=== PATIENT | female | born 1940 | race Caucasian/White ===

== ENCOUNTER 2023-12-27 17:45 | Inpatient (IN) ==
[2023-12-27 18:21] LABS: Basophils # (auto) 0.03 K/uL (0.00-0.20); Basophils % (auto) 0.4 %; Eosinophils # (auto) 0.22 K/uL (0.00-0.50); Eosinophils % (auto) 2.9 %; Hematocrit (blood only) 47.9 % (37.0-47.0); Immature Granulocytes # (auto) 0.01 K/uL (0.01-0.20); Immature Granulocytes % (auto) 0.1 %; Lymphocytes # (auto) 3.05 K/uL (1.20-3.40); Lymphocytes % (auto) 39.8 %; Mean Corpuscular Hemoglobin 31.4 pg (25.0-34.0); Mean Corpuscular Hgb Conc 33.4 g/dL (32.0-36.0); Mean Corpuscular Volume 93.9 fL (80.0-100.0); Mean Platelet Volume 10.1 fL (9.4-12.4); Monocytes # (auto) 0.62 K/uL (0.11-0.59); Monocytes % (auto) 8.1 %; Neutrophils # (auto) 3.74 K/uL (1.40-6.50); Neutrophils % (auto) 48.7 %; Platelet Count 172 K/uL (130-400); RDW Coefficient of Variation 12.7 % (11.5-14.5); RDW Standard Deviation 43.8 fL (36.4-46.3); White Blood Count 7.67 K/ul (4.8-10.8)
[2023-12-27 18:46] LABS: Albumin Globulin Ratio 1.6 (0.9-2); Albumin Level 4.1 gm/dl (3.4-5.0); Bilirubin,Total 0.4 mg/dl (0.2-1.0); Calcium 9.2 mg/dl (8.6-10.3); Est GFR (African American) 50.6 ml/min; Est GFR (Non-African American) 43.7 ml/min; Globulin 2.6 gm/dl (2.5-4.0); Potassium 4.6 mmol/L (3.5-5.1); Total Protein 6.7 gm/dl (6.0-8.3)
[2023-12-27 18:49] LABS: Partial Thromboplastin Ratio 0.7; Partial Thromboplastin Time 21 Seconds (21-31); Prothrombin Time 10.7 Seconds (9.0-12.0)
[2023-12-27 18:51] LABS: Troponin I High Sensitivity 8.6 pg/ml (0-14)
--- NOTE | 2023-12-27 19:11 | XRay Report ---
SINGLE VIEW CHEST CLINICAL HISTORY: Atypical chest pain. FINDINGS: A PA chest radiograph is obtained. No prior studies are available for comparison at the [facility] of dictation. The cardiomediastinal silhouette is unremarkable noting atherosclerotic calcification of the thoracic aorta. Advise projection of left atrium. There is mild bibasilar scarring/atelectasi s. The lungs and pleural spaces are otherwise clear. No pneumothorax is seen. The skeletal structures are osteopenic. The bony thorax is grossly intact. Degenerative change and scoliosis is noted in the spine. IMPRESSION: No active disease in the chest. ACT 112: Negative or not required by law. Electronically signed by: Luis Velez M.D. 12/27/2023 7:09 PM
--- NOTE | 2023-12-27 19:17 | Emergency Department Note ---
Impression & Plan Intermittent lightheadedness, Heart palpitations ED Provider Note NAME: CHRISTY DE LA CRUZ AGE: 83 SEX: F : 1940 ARRIVES VIA: Walk-In INFORMANT: Patient, son ED PROVIDER(S): Zach Akhtar MD CHIEF COMPLAINT: Dizziness MEDICAL DECISION MAKING: Patient presented due to concern for dizziness chest crampiness IV was established and blood work was obtained. Patient is a normal white count hemoglobin and platelet count kidney function with prerenal azotemia LFTs are unremarkable with negative troponin. Chest x-ray does not show evidence of pneumonia or pneumothorax CT of the head was ordered. Patient's CT head negative but does show senescent changes. Given the concern for possible arrhythmia and the patient's intermittent symptoms the patient may benefit from telemetry cardiology evaluation and monitoring. I did speak the on-call hospital service Dr. Whitmore and the patient was admitted to medicine service. Discussion w/ other healthcare providers: Dr. Whitmore inpatient medicine service Prior /Outside records reviewed: None Differential diagnosis: Benign positional vertigo, dehydration, hypovolemia, anemia, infection, hypoglycemia, electrolyte abnormalities, arrhythmia, tox among others were considered. Diagnostics, as interpreted by me: ECG: Normal sinus rhythm, rate of 63, normal intervals, normal axis no ST elevations. Cardiac monitoring: An order was placed for continuous cardiac monitoring. The monitor shows a rate of 65 with sinus rhythm. Patient was placed on pulse oximetry Medical decision rules: None Imaging studies: I informally interpreted the patient's chest x-ray does not show obvious pneumonia or pneumothorax with formal report to follow. HPI: Patient presents with son at bedside due to concern for dizziness lightheadedness possible pacemaker placement. Patient reports that she had been seen at her primary cardiology office yesterday and there was concern that she might be having an irregular heartbeat as there were normal waves and then abnormal waves that the patient describes. [facility] she was subsequently placed in a hallway bed where she waited for 20 hours after waiting in the waiting room for about 5 hours and thus left presenting here for further evaluation and treatment. Patient states that she has had intermittent symptoms sometimes chest crampiness and associated listing to the left side where she is lightheaded dizzy and feels as though she is spinning. Patient did have similar symptoms about a year ago she was diagnosed with a slight stroke did have a Watchman procedure that was performed since then. This has been checked 2 separate times reportedly is in good condition per the son. Patient denies any actual syncope or falls. Patient denies any alcohol tobacco or drug use. PAST MEDICAL HISTORY: See Below PAST SURGICAL HISTORY: See Below SOCIAL HISTORY: See Below HOME MEDICATIONS: See Below ALLERGIES: See Below VITALS: See Below PHYSICAL EXAMINATION: GENERAL: NAD, non-toxic. Wearing glasses. EYE EXAM: Normal conjunctiva. PERRL, no anisocoria and EOM's grossly intact w/o pain. OROPHARYNX: Moist mucus membranes, grossly normal dentition. NECK: Trachea midline, no stridor. LUNGS: Clear to auscultation. Normal chest wall mechanics. HEART: NSR, systolic ejection murmur noted. ABDOMEN: Abdomen soft, non-tender, no masses, no rebound or guarding. BACK: No CVA TTP. SKIN: No rashes and no bruising. UPPER EXTREMITIES: Upper extremities are grossly normal. LOWER EXTREMITIES: Grossly normal, no edema. NEURO EXAM: A&O x3, cranial nerves II-XII grossly intact, normal speech, moves all 4 extremities. Past Med/Surg History Medical History Presence of Watchman left atrial appendage closure device DM2 (diabetes mellitus, type 2) CVA (cerebral vascular accident) Social History Smoking Status: Never smoker Hx Alcohol Use: Yes (occationally) Alcohol type: other Hx Substance Use: No Preferred Language: Slovenian Seam Steamer Required: No Beliefs That Will Affect Care: None Current Living Situation: Alone Feels Safe at Home: Yes Allergies Allergies Allergy/AdvReac Type Severity Reaction Status Date / Time crab Allergy Rash Verified 12/27/23 20:39 meperidine [From Demerol] Allergy Rash Verified 12/27/23 20:39 Penicillins Allergy Rash Verified 12/27/23 20:39 Home Meds Home Medications Medication Instructions Recorded Confirmed acetaminophen 500 mg tablet 1,000 mg PO DAILY 12/27/23 12/27/23 (Tylenol Extra Strength) aspirin 81 mg tablet,delayed 81 mg PO DAILY 12/27/23 12/27/23 release atorvastatin 40 mg tablet 40 mg PO DAILY 12/27/23 12/27/23 cholecalciferol (vitamin D3) 25 0 mcg PO DAILY 12/27/23 12/27/23 mcg (1,000 unit) tablet (Vitamin D3) donepezil 10 mg tablet 10 mg PO HS 12/27/23 12/27/23 empagliflozin 10 mg tablet 10 mg PO QAM 12/27/23 12/27/23 (Jardiance) gabapentin 100 mg capsule 200 mg PO QAM 12/27/23 12/27/23 gabapentin 100 mg capsule 300 mg PO HS 12/27/23 12/27/23 glimepiride 2 mg tablet 2 mg PO DAILY 12/27/23 12/27/23 ipratropium bromide 21 mcg (0.03 2 spray intranasal Q12 12/27/23 12/27/23 %) nasal spray lisinopril 2.5 mg tablet 2.5 mg PO BID 12/27/23 12/27/23 memantine 10 mg tablet 10 mg PO BID 12/27/23 12/27/23 mirabegron 50 mg tablet,extended 50 mg PO DAILY 12/27/23 12/27/23 release 24 hr (Myrbetriq) sredncrz-aka-koimr acid 0.4 1 tab PO DAILY 12/27/23 12/27/23 mg-lycopene 300 mcg-lutein 250 mcg tablet (Centrum Silver) omega-3 fatty acids 1,000 mg 1,000 mg PO BID 12/27/23 12/27/23 capsule solifenacin 5 mg tablet 5 mg PO DAILY 12/27/23 12/27/23 tirzepatide 5 mg/0.5 mL 5 mg subcut .Q7DAYS 12/27/23 12/27/23 subcutaneous pen injector (Kalunsayda) trazodone 50 mg tablet 50 mg PO HS 12/27/23 12/27/23 Results & Data (ED) Vital Signs Vital Signs - 24 hr 12/27/23 17:50 12/27/23 19:15 12/27/23 19:15 Temperature 36.7 C Temperature Source Temporal Artery Scan Pulse Rate 61 66 Pulse Rate from SpO2 Sensor 112 H Respiratory Rate 18 34 H Blood Pressure 191/83 H 206/86 H Blood Pressure Mean 119 140 Pulse Oximetry 94 94 Oxygen Delivery Method Room Air Room Air Oxygen Flow Rate Sepsis Recent Fever Within 48 Hours No Sepsis New/Unexplained Change in Mental Status No Sepsis Action Taken by Nursing No Action Required 12/27/23 19:21 12/27/23 19:21 Temperature Temperature Source Pulse Rate Pulse Rate from SpO2 Sensor Respiratory Rate Blood Pressure Blood Pressure Mean Pulse Oximetry 94 94 Oxygen Delivery Method Room Air Room Air Oxygen Flow Rate 0 Sepsis Recent Fever Within 48 Hours Sepsis New/Unexplained Change in Mental Status Sepsis Action Taken by Detention Medications Current Medication List: was personally reviewed by me Laboratory Data Attestation: I reviewed the patient's lab results. 12/28/23 05:45 12/28/23 05:45 Lab Results 12/27/23 12/27/23 Range/Units 18:08 20:24 WBC 7.67 (4.8-10.8) K/ul RBC 5.10 (4.20-5.40) M/uL Hgb 16.0 (12.0-16.0) g/dl Hct 47.9 H (37.0-47.0) % MCV 93.9 (80.0-100.0) fL MCH 31.4 (25.0-34.0) pg MCHC 33.4 (32.0-36.0) g/dL RDW Std Deviation 43.8 (36.4-46.3) fL RDW Coeff of [place] 12.7 (11.5-14.5) % Plt Count 172 (130-400) K/uL MPV 10.1 (9.4-12.4) fL Immature Gran % (Auto) 0.1 % Neut % (Auto) 48.7 % Lymph % (Auto) 39.8 % [place] % (Auto) 8.1 % Eos % (Auto) 2.9 % Baso % (Auto) 0.4 % Neut # (Auto) 3.74 (1.40-6.50) K/uL Lymph # (Auto) 3.05 (1.20-3.40) K/uL [place] # (Auto) 0.62 H (0.11-0.59) K/uL Eos # (Auto) 0.22 (0.00-0.50) K/uL Baso # (Auto) 0.03 (0.00-0.20) K/uL Immature Gran # (Auto) 0.01 (0.01-0.20) K/uL PT 10.7 (9.0-12.0) Seconds INR 1.0 (0.9-1.1) APTT 21 (21-31) Seconds PTT Ratio 0.7 Sodium 140 (136-145) mmol/L Potassium 4.6 (3.5-5.1) mmol/L Chloride 107 (98-107) mmol/L Carbon Dioxide 27 (21-32) mmol/L Anion Gap 6 (3-11) BUN 31 H (6-23) mg/dl Creatinine 1.15 (0.6-1.2) mg/dl Est Cr Clr Drug Dosing 28.0 ml/min Est GFR ( Amer) 50.6 ml/min Est GFR (Non-Af Amer) 43.7 ml/min BUN/Creatinine Ratio 27.0 H (10-20) Glucose 119 H (70-99(Fasting)) mg/dl Calcium 9.2 (8.6-10.3) mg/dl Magnesium 2.0 (1.7-2.4) mg/dl Total Bilirubin 0.4 (0.2-1.0) mg/dl AST 21 (13-39) U/L ALT 18 (7-52) U/L Alkaline Phosphatase 56 (34-104) U/L Troponin I High Sens 8.6 (0-14) pg/ml Total Protein 6.7 (6.0-8.3) gm/dl Albumin 4.1 (3.4-5.0) gm/dl Globulin 2.6 (2.5-4.0) gm/dl Albumin/Globulin Ratio 1.6 (0.9-2) SARS-CoV-2, RNA, NAAT NEGATIVE (NEGATIVE) Administered Medications Acetaminophen (Acetaminophen 500 Mg Tab) 1,000 mg PO DAILY AVEL Stop: 01/27/24 08:59 Last Admin: 12/28/23 12:23 Dose: 1,000 mg Documented By: ALIREZA Aspirin (Aspirin 81 Mg Ectab) 81 mg PO DAILY AVEL Stop: 01/27/24 08:59 Last Admin: 12/28/23 12:23 Dose: 81 mg Documented By: ALIREZA Atorvastatin Calcium (Atorvastatin 40 Mg Tab) 40 mg PO DAILY AVEL Stop: 01/27/24 08:59 Last Admin: 12/28/23 12:24 Dose: 40 mg Documented By: ALIREZA Gabapentin (Gabapentin 100 Mg Cap) 100 mg PO BID AVEL Stop: 01/27/24 08:59 Last Admin: 12/28/23 20:42 Dose: 100 mg Documented By: Admin: 12/28/23 12:24 Dose: 100 mg Documented By: ALIREZA Heparin Sodium (Porcine) (Heparin Sod 5,000 Unit/0.5 Ml Vial) 5,000 units SQ Q12 AVEL Stop: 01/27/24 20:59 Last Admin: 12/28/23 20:42 Dose: 5,000 units Documented By: MIKE Insulin Aspart (Insulin Aspart Per Unit Charge) 0 units SC Q6 AVEL Stop: 01/27/24 05:59 Last Admin: 12/28/23 16:42 Dose: 2 units Documented By: ALIREZA Co-signed By: JENNIFER Admin: 12/28/23 12:24 Dose: Not Given Documented By: Admin: 12/28/23 05:56 Dose: Not Given Documented By: FELY Lisinopril (Lisinopril 2.5 Mg Tab) 2.5 mg PO BID AVEL Stop: 01/27/24 08:59 Last Admin: 12/28/23 20:42 Dose: 2.5 mg Documented By: Admin: 12/28/23 12:24 Dose: 2.5 mg Documented By: ALIREZA Trazodone HCl (Trazodone Hcl 50 Mg Tab) 25 mg PO HS AVEL Stop: 01/27/24 20:59 Last Admin: 12/28/23 20:42 Dose: 25 mg Documented By: MIKE Vibegron (Vibegron 75 Mg Tab) 75 mg PO DAILY AVEL Stop: 01/27/24 08:59 Last Admin: 12/28/23 12:24 Dose: 75 mg Documented By: ALIREZA Discontinued Medications Lactated Ringer's (Lr) 1,000 mls @ 125 mls/hr IV .Q8H AVEL Stop: 12/28/23 15:29 Last Infusion: 12/28/23 17:18 Dose: Infused Documented By: Admin: 12/28/23 08:52 Dose: 125 mls/hr Documented By: ALIREZA Imaging Data Radiologist's Impression: Chest X-Ray 12/27/23 17:59 SINGLE VIEW CHEST CLINICAL HISTORY: Atypical chest pain. FINDINGS: A PA chest radiograph is obtained. No prior studies are available for comparison at the time of dictation. The cardiomediastinal silhouette is unremarkable noting atherosclerotic calcification of the thoracic aorta. Advise projection of left atrium. There is mild bibasilar scarring/atelectasis. The lungs and pleural spaces are otherwise clear. No pneumothorax is seen. The skeletal structures are osteopenic. The bony thorax is grossly intact. Degenerative change and scoliosis is noted in the spine. IMPRESSION: No active disease in the chest. ACT 112: Negative or not required by law. Electronically signed by: Luis Velez M.D. 12/27/2023 7:09 PM Chest X-Ray 12/27/23 17:59 SINGLE VIEW CHEST CLINICAL HISTORY: Atypical chest pain. FINDINGS: A PA chest radiograph is obtained. No prior studies are available for comparison at the time of dictation. The cardiomediastinal silhouette is unremarkable noting atherosclerotic calcification of the thoracic aorta. Advise projection of left atrium. There is mild bibasilar scarring/atelectasis. The lungs and pleural spaces are otherwise clear. No pneumothorax is seen. The skeletal structures are osteopenic. The bony thorax is grossly intact. Degenerative change and scoliosis is noted in the spine. IMPRESSION: No active disease in the chest. ACT 112: Negative or not required by law. Electronically signed by: Luis Velez M.D. 12/27/2023 7:[address] 12/27/23 19:57 Exam(s): CT HEAD Without Contrast EXAM: CT Head Without Intravenous Contrast CLINICAL HISTORY: Reason for exam: dizziness. TECHNIQUE: Axial computed tomography images of the head/brain without intravenous contrast. CTDI is 38.55 mGy and DLP is 546.36 mGy-cm. Automated exposure control was utilized for the study. A dose lowering technique was utilized adhering to the principles of ALARA. COMPARISON: No relevant prior studies available. FINDINGS: Brain: Mild cerebral atrophy and patchy periventricular white matter low density consistent with chronic small vessel disease and/or senescent changes. No acute large vessel infarct or intracranial hemorrhage is seen. Ventricles: Mildly dilated. No mass or hemorrhage. Bones/joints: Unremarkable. No acute fracture. Soft tissues: Unremarkable. Sinuses: Unremarkable as visualized. No acute sinusitis. Mastoid air cells: Unremarkable as visualized. No mastoid effusion. IMPRESSION: Mild cerebral atrophy and patchy periventricular white matter low density consistent with chronic small vessel disease and/or senescent changes. No acute large vessel infarct or intracranial hemorrhage is seen. Electronically signed by: Timi Goodwin MD 12/27/23 20:55 PM Discharge Plan Visit Data Chief Complaint: Cardiac Assessment Stated Complaint: CARDIAC PROBLEMS - MURMUR, ARRYTHMIA ED Provider: Zach Akhtar Discharge Problem: Intermittent lightheadedness, Heart palpitations Patient Disposition: Admitted As Inpatient Discharge Instructions Interventions: ED Discharge Assessment Last Done: 12/27/23 23:33
--- NOTE | 2023-12-27 20:55 | CT Scan Report ---
Exam(s): CT HEAD Without Contrast EXAM: CT Head Without Intravenous Contrast CLINICAL HISTORY: Reason for exam: dizziness. TECHNIQUE: Axial computed tomography images of the head/brain without intravenous contrast. CTDI is 38.55 mGy and DLP is 546.36 mGy-cm. Automated exposure control was utilized for the study. A dose lowering technique was utilized adhering to the principles of ALARA. COMPARISON: No relevant prior studies available. FINDINGS: Brain: Mild cerebral atrophy and patchy periventricular white matter low density consistent with chronic small vessel disease and/or senescent changes. No acute large vessel infarct or intracranial hemorrhage is seen. Ventricles: Mildly dilated. No mass or hemorrhage. Bones/joints: Unremarkable. No acute fracture. Soft tissues: Unremarkable. Sinuses: Unremarkable as visualized. No acute sinusitis. Mastoid air cells: Unremarkable as visualized. No mastoid effusion. IMPRESSION: Mild cerebral atrophy and patchy periventricular white matter low density consistent with chronic small vessel disease and/or senescent changes. No acute large vessel infarct or intracranial hemorrhage is seen. Electronically signed by: Timi Goodwin MD 12/27/23 20:55 PM
--- NOTE | 2023-12-27 21:59 | History & Physical Report ---
Date of Service December 27, 2023 Assessment & Plan (1) Intermittent lightheadedness: Plan: - Per patient history likely etiology cardiac; although unclear what was seen on her event monitor that prompted ED evaluation - No acute abnormalities on head CT and neuro exam is non-focal - Records request for [facility] cardiology - will monitor of telemetry - TTE ordered - consult cardiology (2) Heart palpitations: Plan: Plan as per above (3) CVA (cerebral vascular accident): Plan: - Reported history of CVA 1 year ago, s/p watchman procedure - Head CT without acute signs of stroke and neuro exam non-focal - Continue statin; lipid panel with am labs - Hold ASP pending cardiology evaluation (4) DM2 (diabetes mellitus, type 2): Plan: - Will hold home meds - well controlled per pt/son - Repeat hemoglobin a1c with morning labs - plan for SSI ACHS (5) Insomnia: Plan: - continue trazodone prn (6) Overactive bladder: Plan: - continue mirabegron, solifenacin Plan Continue remaining home meds- gabapentin, donepezil, lisinopril, memantine. Records request for cardiology/PCP records. Diet: NPO pending cardiology evaluation VTE Prophylaxis: SCD, hold chemical pending cardiology evaluation Code: Full per both pt and son History of Present Illness Primary Care Provider: Bart Daniels 83 year old female presenting per cardiology recommendations with concern for lightheadedness/dizziness. History obtained from both patient and from son, Ovi, over the phone. Was seen at certified athletic trainer office on Friday- [facility] Dr. Frank. Reports that they saw PA in office on Friday. They recommend that she come go to ED for evaluation and felt she may need a pacemaker. Per son she had a heart monitor for about 24 hours, unclear as to what data from that showed. She has been having interment symptoms for over a year. Occur every 1-2 weeks. No new or acutely worsening symptoms in the past week. Periods of lightheadedness/dizziness, confusion, balance is effected, chest "cramping" and palpitations. A year ago was treated for a CVA and after that had a watchman procedure. Denies any current symptoms and she states that she has not been symptomatic at all today. Denies chest pain, dyspnea, lightheadedness, dizziness, palpitations. ED work-up Significant for: CXR without acute pathology, Head CT- Mild cerebral atrophy and patchy periventricular white matter low density consistent with chronic small vessel disease and/or senescent changes. No acute large vessel infarct or intracranial hemorrhage is seen. EKG- NSR with anterolateral infarct undetermined age, trop= 8.3 Allergies Allergy/AdvReac Type Severity Reaction Status Date / Time crab Allergy Rash Verified 12/27/23 20:39 meperidine [From Demerol] Allergy Rash Verified 12/27/23 20:39 Penicillins Allergy Rash Verified 12/27/23 20:39 Home Medications Medication Instructions Recorded Confirmed Type acetaminophen 500 mg tablet 1,000 mg PO DAILY 12/27/23 12/27/23 History (Tylenol Extra Strength) aspirin 81 mg tablet,delayed 81 mg PO DAILY 12/27/23 12/27/23 History release atorvastatin 40 mg tablet 40 mg PO DAILY 12/27/23 12/27/23 History cholecalciferol (vitamin D3) 25 0 mcg PO DAILY 12/27/23 12/27/23 History mcg (1,000 unit) tablet (Vitamin D3) donepezil 10 mg tablet 10 mg PO HS 12/27/23 12/27/23 History empagliflozin 10 mg tablet 10 mg PO QAM 12/27/23 12/27/23 History (Jardiance) gabapentin 100 mg capsule 200 mg PO QAM 12/27/23 12/27/23 History gabapentin 100 mg capsule 300 mg PO HS 12/27/23 12/27/23 History glimepiride 2 mg tablet 2 mg PO DAILY 12/27/23 12/27/23 History ipratropium bromide 21 mcg (0.03 2 spray intranasal Q12 12/27/23 12/27/23 History %) nasal spray lisinopril 2.5 mg tablet 2.5 mg PO BID 12/27/23 12/27/23 History memantine 10 mg tablet 10 mg PO BID 12/27/23 12/27/23 History mirabegron 50 mg tablet,extended 50 mg PO DAILY 12/27/23 12/27/23 History release 24 hr (Myrbetriq) evpsiuek-ozv-hbjjv acid 0.4 1 tab PO DAILY 12/27/23 12/27/23 History mg-lycopene 300 mcg-lutein 250 mcg tablet (Centrum Silver) omega-3 fatty acids 1,000 mg 1,000 mg PO BID 12/27/23 12/27/23 History capsule solifenacin 5 mg tablet 5 mg PO DAILY 12/27/23 12/27/23 History tirzepatide 5 mg/0.5 mL 5 mg subcut .Q7DAYS 12/27/23 12/27/23 History subcutaneous pen injector (Stephanie) trazodone 50 mg tablet 50 mg PO HS 12/27/23 12/27/23 History Past Med/Surg History Medical History Presence of Watchman left atrial appendage closure device DM2 (diabetes mellitus, type 2) CVA (cerebral vascular accident) Social History Smoking Status: Never smoker Hx Alcohol Use: Yes (occationally) Alcohol type: other Hx Substance Use: No Preferred Language: Greenlandic Tariff Clerk Required: No Beliefs That Will Affect Care: None Current Living Situation: Alone Feels Safe at Home: Yes Review of Systems Review of Systems: As per above Physical Exam Physical Exam: Constitutional: well-appearing, no acute distress HEENT: NCAT, no conjunctival injection CV: regular rhythm, no murmur appreciated, extremities well-perfused, no LE edema Resp: CTABL, no wheezes/rales/rhonchi appreciated, no increased work of breathing GI: soft, nondistended, nontender, BS normoactive MSK: no gross deformities appreciated Skin: warm, dry, no rash appreciated Neuro: alert, oriented, no focal neurologic deficit appreciated. CN II-XII intact, strength 5/5 UE/LE B/L Results & Data Results & Data Vital Signs (Past 12 Hours) Vital Signs Temp Pulse Resp BP Pulse Ox O2 Del Method O2 Flow Rate 12/27/23 21:07 183/96 H 12/27/23 21:07 68 22 97 Room Air 12/27/23 21:00 70 20 95 Room Air 12/27/23 20:35 64 22 95 12/27/23 20:00 65 20 92 12/27/23 19:30 62 27 H 12/27/23 19:21 94 Room Air 12/27/23 19:21 94 Room Air 0 12/27/23 19:15 66 34 H 94 Room Air 12/27/23 19:15 206/86 H 12/27/23 19:14 61 12/27/23 17:50 36.7 C 61 18 191/83 H 94 Room Air Supervising Physician Co-Signing Physician Notes Attending addendum: I have physically seen this patient, have supervised the medical residents activities, and agree with the H&P unless as otherwise noted. Assessment and Plan: Intermittent lightheadedness- The patient will be admitted to telemetry for serial cardiac enzymes, serial EKG's, cardiac rhythm monitoring and a 2-D echocardiogram with Dopplers. CT head negative Differential including but not limited to: Tachyarrhythmia, bradycardia arrhythmia, hypoglycemia, medication side effect, progression of General debilitation Heart palpitations- History of Watchman left atrial appendage closure device Follow on telemetry for possible arrhythmias because of lightheadedness symptoms Continue aspirin, lisinopril Consult cardiology Diabetes mellitus- Hold Mounjaro, glimepiride, Jardiance Placed on Accu-Cheks with NovoLog SSI Resident Activity Tracking Resident Involvement: Resident Care Provided Care Provided: Adult Hospital Medicine
[2023-12-28] MEDS ORDERED: DEXTROSE 50% 50 ML SYRINGE IV PRN (00:26)
[2023-12-28] MEDS ORDERED: GLUCOSE 10 TAB/TUBE PO PRN (00:26)
[2023-12-28] MEDS ORDERED: GLUCOSE 40% GEL 15 GM TUBE PO PRN (00:26)
[2023-12-28] MEDS ORDERED: CARBOHYDRATES FOR HYPOGLYCEMIA PO PRN (00:26)
[2023-12-28] MEDS: INSULIN ASPART PER UNIT CHARGE SC SCH (05:56)
[2023-12-28 06:21] LABS: Hematocrit (blood only) 50.9 % (37.0-47.0); Hemoglobin 16.3 g/dl (12.0-16.0); Mean Corpuscular Hemoglobin 30.8 pg (25.0-34.0); Mean Platelet Volume 10.6 fL (9.4-12.4); Platelet Count 147 K/uL (130-400); RDW Coefficient of Variation 12.9 % (11.5-14.5); RDW Standard Deviation 46.1 fL (36.4-46.3); White Blood Count 7.98 K/ul (4.8-10.8)
[2023-12-28 06:46] LABS: Albumin Globulin Ratio 1.7 (0.9-2); Albumin Level 3.9 gm/dl (3.4-5.0); BUN Creatinine Ratio 29.2 (10-20); Bilirubin,Total 0.5 mg/dl (0.2-1.0); Calcium 9.2 mg/dl (8.6-10.3); Chol HDL Ratio 2.1 (0-5); Creatinine Clr Calc Pharmacy 36.2 ml/min; Est GFR (Non-African American) 59.5 ml/min; Globulin 2.3 gm/dl (2.5-4.0); Phosphorus 3.1 mg/dl (2.5-4.9); Total Protein 6.2 gm/dl (6.0-8.3)
--- NOTE | 2023-12-28 07:30 | Hospitalist Progress Note ---
Date of Service December 28, 2023 Assessment & Plan (1) Intermittent lightheadedness: Plan: 83 y/o with history of CVA and subsequently Watchman procedure, seen in cardiology clinic [facility], [facility] friday by PA (magazine publisher Dr. Frank), referred to ED and was in ED in [place] reportedly 20 hours, left and came to ED here - "Per patient history likely etiology cardiac; although unclear what was seen on her event monitor that prompted ED evaluation" - I personally reviewed CXR film, I can see her Watchman but I do NOT see an event recorder, will confirm with patient on exam. If present we should be able to interrogate it - No acute abnormalities on head CT and neuro exam is non-focal - Records requested from [facility] cardiology - won't arrive today - no events on telemetry overnight, EKG NSR anterolateral Qs - has multiple medications that could cause lightheadedness also appears volume depleted based on labs (no fluids given in ED / overnight?) - hold aricept, namenda - reduce gabapentin to 100 mg bid. Current home dose too high based on age, renal function - hold/reduce trazodone dose - can cause orthostasis, hypotension (taking 50 mg not 100) - hold oxybutynin - check orthostatic VS, PT/OT - IV LR 1L. Has elevated H/H persists overnight - recheck after IVF in am, may warrant further evaluation for polycythemia - "GoLo" supplement label contains mag, zinc, chromiun, rhodiola, inositol, berberine, jayy, banaba, salaretin, apple. Not supposed to contain stimulants. - TTE ordered - admitting team consulted cardiology, discussed with Dr. Armstrong, will be NPO after MN in case she needs pacemaker, attempting to get records/info from [facility], [facility] (2) Heart palpitations: Plan: Plan as per above (3) CVA (cerebral vascular accident): Plan: - Reported history of CVA 1 year ago, s/p watchman procedure - Head CT without acute signs of stroke and neuro exam non-focal - Continue statin; lipid panel with am labs - Resume aspirin (4) DM2 (diabetes mellitus, type 2): Plan: - Will hold home meds - well controlled per pt/son - Repeat hemoglobin a1c with morning labs - plan for SSI ACHS (5) Insomnia: Plan: -reduce trazodone dose (6) Overactive bladder: Plan: Takes these for urge incontinence. - hold mirabegron, solifenacin Plan Dementia or mild cognitive impairment - on aricept, namenda, held because of potential side effects, see above CKD-3? - no baseline labs available -AM BMP, IVF today Diet: cardiac VTE Prophylaxis: SQ heparin Code: Full per both pt and son Updated her two sons at bedside 12/27 Admission and Anticipated Discharge Date Admission Date: December 27, 2023 Subjective Feels better than yesterday generally, finally napped about 4h, vague historian but has been having recurrent episodes of lightheadedness and feeling uncoordinated for months or a year not always with standing. can't recall her meds or if any recent changes. Has lost weight but on jardiance and mounjaro. Has been taking "golo" supplement recently No chest pain or dyspnea. Currently eating lunch Son states no residual deficits from previous stroke Physical Exam 2 Physical Exam: PHYSICAL EXAMINATION Last 24h vital signs reviewed, see documentation in flowsheet General: comfortable appearing, no distress, sitting up in bed HEENT: Normocephalic, atraumatic, pupils round and equal, sclerae anicteric, no conjunctival injection, moist mucus membranes Lungs: Normal respiratory effort. Clear to auscultation bilaterally. No RRW Heart: Regular rate and rhythm, no murmurs. No JVD Abdomen: Soft, nontender, nondistended. Bowel sounds present. Extremities: Warm, dry, well-perfused. No extremity edema. Neuro: Alert and oriented x person [facility] basic situation, vague historian seems forgetful, face symmetric, moves 4 extremities well Psych: Normal affect and behavior Results & Data Results & Data Vital Signs (Past 12 Hours) Vital Signs Temp Pulse Pulse Resp BP BP BP 12/28/23 03:25 36.7 C 62 16 160/82 H 12/28/23 01:01 36.6 C 62 16 12/28/23 00:30 128/101 H 12/28/23 00:30 61 18 12/28/23 00:30 12 12/28/23 00:28 142/97 H 12/28/23 00:28 76 13 12/28/23 00:24 59 L 04/21/24 00:24 64 18 12/28/23 00:10 36.6 C 18 142/97 H 12/27/23 23:45 12/27/23 23:45 36.6 C 18 142/97 H 12/27/23 23:45 36.6 C 18 172/61 H 12/27/23 23:45 12/27/23 23:30 60 20 12/27/23 23:00 117/80 12/27/23 23:00 66 16 12/27/23 22:45 67 16 12/27/23 22:40 21 12/27/23 22:39 39 H 12/27/23 22:00 68 23 12/27/23 21:30 80 19 12/27/23 21:07 183/96 H 12/27/23 21:07 68 22 12/27/23 21:00 70 20 12/27/23 20:35 64 22 12/27/23 20:00 65 20 12/27/23 19:30 62 27 H 12/27/23 19:21 12/27/23 19:21 Pulse Ox Pulse Ox O2 Del Method O2 Del Method O2 Flow Rate 12/28/23 03:25 99 Room Air 12/28/23 01:01 98 Room Air 12/28/23 00:30 98 Room Air 12/28/23 00:30 12/28/23 00:30 95 12/28/23 00:28 12/28/23 00:28 12/28/23 00:24 12/28/23 00:24 12/28/23 00:10 98 Room Air 12/27/23 23:45 Room Air 12/27/23 23:45 97 Room Air 12/27/23 23:45 98 Room Air 12/27/23 23:45 98 Room Air 12/27/23 23:30 94 Room Air 12/27/23 23:00 12/27/23 23:00 97 Room Air 12/27/23 22:45 95 12/27/23 22:40 88 L 12/27/23 22:39 97 12/27/23 22:00 97 Room Air 12/27/23 21:30 92 12/27/23 21:07 12/27/23 21:07 97 Room Air 12/27/23 21:00 95 Room Air 12/27/23 20:35 95 12/27/23 20:00 92 12/27/23 19:30 12/27/23 19:21 94 Room Air 12/27/23 19:21 94 Room Air 0 Laboratory Results 12/28/23 05:45 12/28/23 05:45 PG Care Time/CCT Total # of Minutes Spent Total Time Spent with Patient: Total time spent is greater than 50% in coordination of care (as documented) at patient's floor/unit and/or counseling patient: Coding Level of Care Code 41416 SUB INP/OBS CARE 2/35MIN Diagnoses Intermittent lightheadedness R42 Heart palpitations R00.2 CVA (cerebral vascular accident) I63.9 DM2 (diabetes mellitus, type 2) E11.9 Insomnia G47.00 Overactive bladder N32.81
[2023-12-28 08:01] LABS: Estimated Average Glucose 148 mg/dl; Hemoglobin A1C 6.8 % (4.5-5.6)
--- NOTE | 2023-12-28 08:41 | Cardiology Consultation ---
Date of Consultation December 28, 2023 Assessment & Plan (1) Intermittent lightheadedness: (2) Bradycardia: (3) Presence of Watchman left atrial appendage closure device: (4) Heart murmur: (5) CVA (cerebral vascular accident): (6) HBP (high blood pressure): Plan 1. Lightheadedness: Our evaluation here is very much hampered by not having any records. This has been evaluated over the last year, finding out what was done and the findings is essential. Hopefully will be able to get those records. She did have a pacemaker mentioned yesterday, but I am not sure if that was speculating on a cause or if a specific arrhythmia was identified. In case a specific arrhythmia requiring a pacemaker was identified I am going to keep her from eating breakfast tomorrow in case we want to do a pacemaker. Based on her symptoms I am a little skeptical that they are due to bradycardia, the symptoms are quite prolonged and even if she has periods of bradycardia it may or may not be related to her symptoms. 2. Bradycardia: She may have sick sinus syndrome, she has a watchman in place although her son is not specifically aware of an identified atrial arrhythmia but that would be the normal reason to implant 1. She is not on rate controlling medications yet her heart rate is generally slow. This is possibly a cause of her symptoms but the correlation is not clear since she is currently not having symptoms. Perhaps that correlation has been made but we need those records. 3. Watchman: She does have a watchman in place, she has not been in atrial fibrillation here but I would not start anticoagulation but we should continue aspirin. That would not interfere with a pacemaker if needed. 4. Heart murmur: She is reported to have a history of a heart murmur, I thought she might have a faint heart murmur but her echo does not show significant valvular heart disease. 5. CVA: I cannot tell from the son's description as to whether a CVA was identified (it sounds as though it was not seen on scanning), perhaps this was speculation before the scan. We may be able to sort that out with further records. 6. Hypertension: Her systolic blood pressure is quite elevated at times, at other times not. Based on her measurements here it is quite labile. It is poss ible that her symptoms are due to labile blood pressure. She is on low-dose blood pressure medications, I would probably not increase them until we have a better sense of what is happening with her rhythm. I would definitely not add medications that can slow heart rate. Unfortunately I do not think we have anything specific we can do until we obtain the records. History of Present Illness Reason for Consultation: Intermittent dizziness Attending Physician: Karine Neville MD History of Present Illness This is an 83-year-old woman who has a history of stroke a year ago and had a Watchman procedure performed around that time. Unfortunately my evaluation is hampered substantially by not having any records, my information is from the patient (who knows very little about it) and her son who is fairly well-informed but not completely. From the history then I am able to obtain she had either a stroke or a suspected stroke a year ago, apparently this was based on symptoms of intermittent lightheadedness. She had a watchman implanted but it is not clear to me what type of arrhythmia was identified. The symptoms have continued, therefore repeat evaluation was done. She was seen in her local physician's office on December 27, 2023 and it was noted that her heart rate was slow or pauses were present (I cannot quite tell from her son's description) but it was felt that she should go to the emergency room at [place] and a pacemaker was mentioned. Of note she was having her typical symptoms at that time. She went to the emergency room there, but after a prolonged wait she came to our emergency room. By time she got to our emergency room her symptoms had resolved. Basic evaluation with blood work and an echocardiogram this morning was performed, she was placed on telemetry however she has had none of her typical symptoms which are intermittent and her rhythm on the monitor has not been substantially abnormal. Her presenting electrocardiogram shows sinus rhythm at a rate of 63 bpm with poor R wave progression, possibly due to anterior infarction but not definitively. She and her son describes intermittent episodes going back for about a year but occurring on a relatively infrequent basis (weeks to months as near as I can tell) and lasting from a 10 or 20 minutes up to several hours. During these episodes she feels lightheaded and she tends to walk "to the side", although she can walk and apparently has not been presyncopal or syncopal. It sounds as though she feels better when she is not standing, but it sounds as though the symptoms occur when she is not standing as well (such as in her physician's office). She recently had some type of monitoring performed (it might just be what was done in the office) and perhaps some type of arrhythmia was identified although that is not clear. The symptoms resolved before evaluation in [place] and have not recurred. She does not get chest discomfort with that and I believe has no sense of palpitations. Allergies Allergy/AdvReac Type Severity Reaction Status Date / Time crab Allergy Rash Verified 12/27/23 20:39 meperidine [From Demerol] Allergy Rash Verified 12/27/23 20:39 Penicillins Allergy Rash Verified 12/27/23 20:39 Home Medications Medication Instructions Recorded Confirmed Type acetaminophen 500 mg tablet 1,000 mg PO DAILY 12/27/23 12/27/23 History (Tylenol Extra Strength) aspirin 81 mg tablet,delayed 81 mg PO DAILY 12/27/23 12/27/23 History release atorvastatin 40 mg tablet 40 mg PO DAILY 12/27/23 12/27/23 History cholecalciferol (vitamin D3) 25 0 mcg PO DAILY 12/27/23 12/27/23 History mcg (1,000 unit) tablet (Vitamin D3) donepezil 10 mg tablet 10 mg PO HS 12/27/23 12/27/23 History empagliflozin 10 mg tablet 10 mg PO QAM 12/27/23 12/27/23 History (Jardiance) gabapentin 100 mg capsule 200 mg PO QAM 12/27/23 12/27/23 History gabapentin 100 mg capsule 300 mg PO HS 12/27/23 12/27/23 History glimepiride 2 mg tablet 2 mg PO DAILY 12/27/23 12/27/23 History ipratropium bromide 21 mcg (0.03 2 spray intranasal Q12 12/27/23 12/27/23 Hist ory %) nasal spray lisinopril 2.5 mg tablet 2.5 mg PO BID 12/27/23 12/27/23 History memantine 10 mg tablet 10 mg PO BID 12/27/23 12/27/23 History mirabegron 50 mg tablet,extended 50 mg PO DAILY 12/27/23 12/27/23 History release 24 hr (Myrbetriq) lvfmugtp-hrg-vplou acid 0.4 1 tab PO DAILY 12/27/23 12/27/23 History mg-lycopene 300 mcg-lutein 250 mcg tablet (Centrum Silver) omega-3 fatty acids 1,000 mg 1,000 mg PO BID 12/27/23 12/27/23 History capsule solifenacin 5 mg tablet 5 mg PO DAILY 12/27/23 12/27/23 History tirzepatide 5 mg/0.5 mL 5 mg subcut .Q7DAYS 12/27/23 12/27/23 History subcutaneous pen injector (Kalunjaro) trazodone 50 mg tablet 50 mg PO HS 12/27/23 12/27/23 History Patient History Medical History Presence of Watchman left atrial appendage closure device DM2 (diabetes mellitus, type 2) CVA (cerebral vascular accident) Social History Smoking Status: Never smoker Hx Alcohol Use: Yes (occationally) Alcohol type: other Hx Substance Use: No Preferred Language: [employer] Teacher Required: No Beliefs That Will Affect Care: None Current Living Situation: Alone Feels Safe at Home: Yes Review of Systems Review of Systems: All systems reviewed & are unremarkable except as noted in HPI & below Physical Exam Physical Exam: Constitutional: Alert, cooperative and in no distress. HEENT: Unremarkable Neck: No jugular venous distention, carotid pulses are normal and equal bilaterally without bruits. Pulmonary: Clear to auscultation bilaterally. Cardiac: Regular rhythm with a left ventricular outflow murmur, a holosystolic murmur at the apex and no gallop or rub. Abdomen: Soft, nontender with normal bowel sounds. Extremities: No edema. Neurologic: No focal findings. Skin: No rash, ecchymoses or petechiae. Results & Data Vital Signs (Past 12 Hours) Vital Signs Temp Pulse Pulse Resp BP BP BP 12/28/23 03:25 36.7 C 62 16 160/82 H 12/28/23 01:01 36.6 C 62 16 12/28/23 00:30 128/101 H 12/28/23 00:30 61 18 12/28/23 00:30 12 12/28/23 00:28 142/97 H 12/28/23 00:28 76 13 12/28/23 00:24 59 L 12/28/23 00:24 64 18 12/28/23 00:10 36.6 C 18 142/97 H 12/27/23 23:45 12/27/23 23:45 36.6 C 18 142/97 H 12/27/23 23:45 36.6 C 18 172/61 H 12/27/23 23:45 12/27/23 23:30 60 20 12/27/23 23:00 117/80 12/27/23 23:00 66 16 12/27/23 22:45 67 16 12/27/23 22:40 21 12/27/23 22:39 39 H 12/27/23 22:00 68 23 12/27/23 21:30 80 19 12/27/23 21:07 183/96 H 12/27/23 21:07 68 22 12/27/23 21:00 70 20 Pulse Ox Pulse Ox O2 Del Method O2 Del Method 12/28/23 03:25 99 Room Air 12/28/23 01:01 98 Room Air 12/28/23 00:30 98 Room Air 12/28/23 00:30 12/28/23 00:30 95 12/28/23 00:28 12/28/23 00:28 12/28/23 00:24 12/28/23 00:24 12/28/23 00:10 98 Room Air 12/27/23 23:45 Room Air 12/27/23 23:45 97 Room Air 12/27/23 23:45 98 Room Air 12/27/23 23:45 98 Room Air 12/27/23 23:30 94 Room Air 12/27/23 23:00 12/27/23 23:00 97 Room Air 12/27/23 22:45 95 12/27/23 22:40 88 L 12/27/23 22:39 97 12/27/23 22:00 97 Room Air 12/27/23 21:30 92 12/27/23 21:07 12/27/23 21:07 97 Room Air 12/27/23 21:00 95 Room Air Laboratory Results Cardiac Enzymes 12/27/23 12/27/23 12/28/23 Range/Units 18:08 23:26 05:45 AST 21 19 (13-39) U/L Troponin I High Sens 8.6 9.8 (0-14) pg/ml Coagulation 12/27/23 Range/Units 18:08 PT 10.7 (9.0-12.0) Seconds APTT 21 (21-31) Seconds Lipids 12/28/23 Range/Units 05:45 Triglycerides 140 (0-150) mg/dl Cholesterol 121 (0-200) mg/dl HDL Cholesterol 59 mg/dl Cholesterol/HDL Ratio 2.1 (0-5) CBC 12/27/23 12/28/23 Range/Units 18:08 05:45 WBC 7.67 7.98 (4.8-10.8) K/ul RBC 5.10 5.30 (4.20-5.40) M/uL Hgb 16.0 16.3 H (12.0-16.0) g/dl Hct 47.9 H 50.9 H (37.0-47.0) % Plt Count 172 147 (130-400) K/uL Neut # (Auto) 3.74 (1.40-6.50) K/uL Lymph # (Auto) 3.05 (1.20-3.40) K/uL Ware # (Auto) 0.62 H (0.11-0.59) K/uL Eos # (Auto) 0.22 (0.00-0.50) K/uL Baso # (Auto) 0.03 (0.00-0.20) K/uL Comprehensive Metabolic Panel 12/27/23 12/28/23 Range/Units 18:08 05:45 Sodium 140 143 (136-145) mmol/L Potassium 4.6 4.0 (3.5-5.1) mmol/L Chloride 107 110 H (98-107) mmol/L Carbon Dioxide 27 28 (21-32) mmol/L BUN 31 H 26 H (6-23) mg/dl Creatinine 1.15 0.89 (0.6-1.2) mg/dl Glucose 119 H 90 (70-99(Fasting)) mg/dl Calcium 9.2 9.2 (8.6-10.3) mg/dl AST 21 19 (13-39) U/L ALT 18 17 (7-52) U/L Alkaline Phosphatase 56 43 (34-104) U/L Total Protein 6.7 6.2 (6.0-8.3) gm/dl Albumin 4.1 3.9 (3.4-5.0) gm/dl Intake and Output 12/27/23 12/28/23 12/28/23 22:59 06:59 14:59 Other: Other Intake Source NPO # Unmeasured Voids 1 Weight 60.6 kg 60.5 kg Weight Measurement Method Chair Scale Standing Scale Diagnostic Findings Telemetry: Sinus rhythm and sinus bradycardia, rate typically 50 to 60 bpm. No significant atrial arrhythmias and no significant pauses. An echocardiogram done today demonstrates normal left ventricular size and function with borderline left atrial dilatation and no significant valvular disease. PG Care Time/CCT Total # of Minutes Spent Total Time Spent with Patient: Total time spent is greater than 50% in coordination of care (as documented) at patient's floor/unit and/or counseling patient: Coding Level of Care Code 49662 INT INP/OBS CARE 3/75MIN Diagnoses Intermittent lightheadedness R42 Bradycardia R00.1 Presence of Watchman left atrial appendage closure device Z95.818 Heart murmur R01.1 CVA (cerebral vascular accident) I63.9 HBP (high blood pressure) I10
[2023-12-28] MEDS: LACTATED RINGER'S 1,000 ML IV SCH (08:52)
[2023-12-28] MEDS ORDERED: GABAPENTIN 100 MG CAP PO SCH (09:00)
[2023-12-28] MEDS ORDERED: MEMANTINE HCL 10 MG TAB PO SCH (09:00)
[2023-12-28] MEDS ORDERED: OXYBUTYNIN CHLORIDE XL 5 MG TABCR PO SCH (09:00)
[2023-12-28] MEDS: ASPIRIN 81 MG ECTAB PO SCH (12:23)
[2023-12-28] MEDS: ACETAMINOPHEN 500 MG TAB PO SCH (12:23)
[2023-12-28] MEDS: VIBEGRON 75 MG TAB PO SCH (12:24)
[2023-12-28] MEDS: ATORVASTATIN 40 MG TAB PO SCH (12:24)
[2023-12-28] MEDS: GABAPENTIN 100 MG CAP PO SCH (12:24)
[2023-12-28] MEDS: lisinopril 2.5 MG TAB PO SCH (12:24)
--- NOTE | 2023-12-28 15:20 | XCELERA ---
[id number]
[2023-12-28] MEDS: traZODone HCL 50 MG TAB PO SCH (20:42)
[2023-12-28] MEDS: HEPARIN SOD 5,000 UNIT/0.5 ML VIAL SQ SCH (20:42)
[2023-12-28] MEDS ORDERED: GABAPENTIN 300 MG CAP PO SCH (21:00)
[2023-12-28] MEDS ORDERED: traZODone HCL 50 MG TAB PO SCH (21:00)
[2023-12-28] MEDS ORDERED: DONEPEZIL HCL 10 MG TAB PO SCH (21:00)
--- NOTE | 2023-12-28 22:49 | Electrocardiogram Report ---
Test Reason : Blood Pressure : / mmHG Vent. Rate : 063 BPM Atrial Rate : 063 BPM P-R Int : 176 ms QRS Dur : 084 ms QT Int : 382 ms P-R-T Axes : -26 -14 068 degrees QTc Int : 390 ms Normal sinus rhythm Anterolateral infarct , age undetermined Abnormal ECG No previous ECGs available Confirmed by Rajan Armstrong ([id number]) on 12/28/2023 10:49:07 PM Referred By: Michele Frank Confirmed By:Rajan Armstrong
--- NOTE | 2023-12-29 06:48 | Billing Data ---
Date of Service December 29, 2023 Coding Level of Care Code 98779 INT INP/OBS CARE
[2023-12-29 06:53] LABS: Hematocrit (blood only) 47.6 % (37.0-47.0); Hemoglobin 15.2 g/dl (12.0-16.0); Mean Corpuscular Hemoglobin 30.8 pg (25.0-34.0); Mean Corpuscular Hgb Conc 31.9 g/dL (32.0-36.0); Mean Corpuscular Volume 96.4 fL (80.0-100.0); Mean Platelet Volume 10.3 fL (9.4-12.4); Platelet Count 162 K/uL (130-400); RDW Coefficient of Variation 13.2 % (11.5-14.5); RDW Standard Deviation 46.9 fL (36.4-46.3); Red Blood Count 4.94 M/uL (4.20-5.40)
[2023-12-29 07:27] LABS: BUN Creatinine Ratio 24.5 (10-20); Calcium 8.7 mg/dl (8.6-10.3); Creatinine Clr Calc Pharmacy 33.7 ml/min; Est GFR (African American) 64.6 ml/min; Est GFR (Non-African American) 55.7 ml/min; Potassium 4.3 mmol/L (3.5-5.1)
--- NOTE | 2023-12-29 11:31 | Cardiology Progress Note ---
Date of Service December 29, 2023 Assessment & Plan (1) Intermittent lightheadedness: (2) Bradycardia: (3) Presence of Watchman left atrial appendage closure device: (4) Heart murmur: (5) CVA (cerebral vascular accident): (6) HBP (high blood pressure): Plan 1. Lightheadedness: Our evaluation here is very much hampered by not having any records. This has been evaluated over the last year, finding out what evaluation was done and the findings is essential. Hopefully we will be able to get those records. She did have a pacemaker mentioned prior to admission, but I am not sure if that was speculating on a cause or if a specific arrhythmia was identified. Based on her symptoms as described yesterday I am a little skeptical that they are due to bradycardia, however today she cannot describe symptoms except that she was somewhat lightheaded today when she got out of bed and there was no arrhythmia and I am not aware of a drop in blood pressure. I do not know if that was the same symptoms she has been having at home. 2. Bradycardia: She may have sick sinus syndrome, she has a watchman in place although her son is not specifically aware of an identified atrial arrhythmia but that would be the normal reason to implant 1. She is not on rate controlling medications yet her heart rate is generally slow. This is possibly a cause of her symptoms but the correlation is not clear since she is currently not having symptoms. Perhaps that correlation has been made but we need those records. 3. Watchman: She does have a watchman in place, she has not been in atrial fibrillation here but I would not start anticoagulation but we should continue aspirin. That would not interfere with a pacemaker if needed. 4. Heart murmur: She is reported to have a history of a heart murmur, I thought she might have a faint heart murmur but her echo does not show significant valvular heart disease. 5. CVA: I cannot tell from the son's description as to whether a CVA was identified (it sounds as though it was not seen on scanning), perhaps this was speculation before the scan. We may be able to sort that out with further records. 6. Hypertension: Her systolic blood pressure is quite elevated at times, at other times not although generally somewhat elevated. Based on her measurements here it is quite labile. It is possible that her symptoms are due to labile blood pressure. She is on low-dose blood pressure medications, I would probably not increase them until we have a better sense of what is happening with her rhythm. I would definitely not add medications that can slow heart rate. Unfortunately I do not think we have anything specific we can do until we obtain the records. Admission and Anticipated Discharge Date Admission Date: December 27, 2023 Subjective She seems to feel fairly well today but she seems a little bit confused, she can no longer recall what the cardiovascular symptoms were that prompted her evalua tion for lightheadedness. She tells me she had little bit of lightheadedness today, but cannot recall whether is the same thing she is experienced in the past. Physical Exam Physical Exam: Constitutional: Alert, cooperative and in no distress. HEENT: Unremarkable Neck: No jugular venous distention, carotid pulses are normal and equal bilaterally without bruits. Pulmonary: Clear to auscultation bilaterally. Cardiac: Regular rhythm with no significant murmur and no gallop or rub. Abdomen: Soft, nontender with normal bowel sounds. Extremities: No edema. Neurologic: No focal findings. Skin: No rash, ecchymoses or petechiae. Results & Data Vital Signs (Past 12 Hours) Vital Signs Temp Pulse Pulse Resp BP BP Pulse Ox 12/29/23 09:35 57 L 12/29/23 07:05 36.8 C 58 L 17 147/81 H 95 12/29/23 03:42 36.8 C 58 L 16 113/55 L 95 12/29/23 00:30 68 O2 Del Method 12/29/23 09:35 12/29/23 07:05 Room Air 12/29/23 03:42 Room Air 12/29/23 00:30 Laboratory Results CBC 12/29/23 Range/Units 06:10 WBC 9.50 (4.8-10.8) K/ul RBC 4.94 (4.20-5.40) M/uL Hgb 15.2 (12.0-16.0) g/dl Hct 47.6 H (37.0-47.0) % Plt Count 162 (130-400) K/uL Comprehensive Metabolic Panel 12/29/23 Range/Units 06:10 Sodium 142 (136-145) mmol/L Potassium 4.3 (3.5-5.1) mmol/L Chloride 111 H (98-107) mmol/L Carbon Dioxide 25 (21-32) mmol/L BUN 23 (6-23) mg/dl Creatinine 0.94 (0.6-1.2) mg/dl Glucose 125 H (70-99(Fasting)) mg/dl Calcium 8.7 (8.6-10.3) mg/dl Intake and Output 12/28/23 12/29/23 12/29/23 22:59 06:59 14:59 Intake Total 1050 / 1050 Balance 1050 / 1050 Intake: IV 1000 / 1000 Lactated Ringer's 1,000 ml @ 1000 / 1000 125 mls/hr IV .Q8H AVEL Rx#: [id number] Oral 50 / 50 Other: Other Intake Source NPO # Unmeasured Voids 2 Weight 58.6 kg Weight Measurement Method Built in [facility] Diagnostic Findings Telemetry: Sinus rhythm and sinus bradycardia, rate typically 50 to 60 bpm. No pauses. PG Care Time/CCT Total # of Minutes Spent Total Time Spent with Patient: Total time spent is greater than 50% in coordination of care (as documented) at patient's floor/unit and/or counseling patient: Coding Level of Care Code 53416 SUB INP/OBS CARE 2/35MIN Diagnoses Intermittent lightheadedness R42 Bradycardia R00.1 Presence of Watchman left atrial appendage closure device Z95.818 Heart murmur R01.1 CVA (cerebral vascular accident) I63.9 HBP (high blood pressure) I10
[2023-12-29] MEDS: INSULIN ASPART PER UNIT CHARGE SC SCH (11:58)
--- NOTE | 2023-12-29 16:41 | Hospitalist Progress Note ---
Date of Service December 29, 2023 Assessment & Plan (1) Intermittent lightheadedness: Plan: 83 y/o with history of CVA and subsequently Watchman procedure, seen in cardiology clinic [facility] friday by PA (agriculture teacher Dr. Frank), referred to ED and was in ED in [place] reportedly 20 hours, left and came to ED here - "Per patient history likely etiology cardiac; although unclear what was seen on her event monitor that prompted ED evaluation" - No acute abnormalities on head CT and neuro exam is non-focal - Records requested from [facility] cardiology - supposedly were sent to medical records today by email - according to her son - no events on telemetry overnight except mild sinus hudson while sleeping, EKG NSR anterolateral Qs - has multiple medications that could cause lightheadedness also appeared volume depleted based on labs -given IVF 12/27 - hold aricept, namenda - reduced gabapentin to 100 mg bid. Current home dose too high based on age, renal function - no increased pain thus far - hold/reduce trazodone dose - can cause orthostasis, hypotension (taking 50 mg not 100) - slept fine last night - hold oxybutynin - reported no worsening of bladder sx so far - orthostatic VS neg today, PT/OT - "GoLo" supplement label contains mag, zinc, chromiun, rhodiola, inositol, berberine, jayy, banaba, salaretin, apple. Not supposed to contain stimulants. - TTE - low normal EF 50-55%, neg bubble, no sig valvular disease - consulted cardiology, discussed with Dr. Armstrong, attempting to get records/info from [facility], no indication for pacemaker on our evaluation thus far (2) Heart palpitations: Plan: Plan as per above (3) CVA (cerebral vascular accident): Plan: - Reported history of CVA 1 year ago, s/p watchman procedure - Head CT without acute signs of stroke and neuro exam non-focal - Continue statin and ASA - LDL was 34 (4) DM2 (diabetes mellitus, type 2): Plan: A1c 6.8 - continue short acting insulin ACHS (5) Insomnia: Plan: reduce trazodone (6) Overactive bladder: Plan: Takes these for urge incontinence. - hold mirabegron, solifenacin Plan Dementia or mild cognitive impairment - on aricept, namenda, held because of potential side effects, see above CKD-3 - no baseline labs available - BUN improved but Cr unchanged after IVF Had elevated H/H - virtually resolved after fluids, seemed volume depleted so may have been hemoconcentration Continue remaining home meds- gabapentin, donepezil, lisinopril, memantine. Records request for cardiology/PCP records. Both sons updated 12/27 Updated one of her sons at bedside 12/28 Admission and Anticipated Discharge Date Admission Date: December 27, 2023 Subjective she feels like she is doing better today had some kind of symptom when up and about with OT that went away after she sat down. Was not orthostatic on vitals. Very vague historian Physical Exam 2 Physical Exam: PHYSICAL EXAMINATION Last 24h vital signs reviewed, see documentation in flowsheet General: comfortable appearing, no distress, brushing teeth along time at sink then walked to chair and sat down independently HEENT: Normocephalic, atraumatic, pupils round and equal, sclerae anicteric, no conjunctival injection, moist mucus membranes Lungs: Normal respiratory effort. Clear to auscultation bilaterally. No RRW Heart: Regular rate and rhythm, systolic M. No JVD Abdomen: Soft, nontender, nondistended. Bowel sounds present. Extremities: Warm, dry, well-perfused. No extremity edema. Neuro: Alert and oriented x [facility] basic situation, vague historian, forgetful, face symmetric, moves 4 extremities well, walks well with stooped over gait Psych: Normal affect and behavior Results & Data Results & Data Vital Signs (Past 12 Hours) Vital Signs Temp Pulse Pulse Resp BP BP Pulse Ox 12/29/23 15:11 67 16 149/85 H 95 12/29/23 11:15 36.7 C 64 16 125/68 97 12/29/23 09:35 57 L 12/29/23 07:05 36.8 C 58 L 17 147/81 H 95 O2 Del Method 12/29/23 15:11 Room Air 12/29/23 11:15 Room Air 12/29/23 09:35 12/29/23 07:05 Room Air Laboratory Results 12/29/23 06:10 12/29/23 06:10 PG Care Time/CCT Total # of Minutes Spent Total Time Spent with Patient: Total time spent is greater than 50% in coordination of care (as documented) at patient's floor/unit and/or counseling patient: Coding Level of Care Code 77832 SUB INP/OBS CARE 2/35MIN Diagnoses Intermittent lightheadedness R42 Heart palpitations R00.2 CVA (cerebral vascular accident) I63.9 DM2 (diabetes mellitus, type 2) E11.9 Insomnia G47.00 Overactive bladder N32.81
[2023-12-30 08:56] LABS: BUN Creatinine Ratio 24.3 (10-20); Calcium 8.6 mg/dl (8.6-10.3); Creatinine Clr Calc Pharmacy 29.8 ml/min; Est GFR (African American) 55.2 ml/min; Est GFR (Non-African American) 47.6 ml/min; Potassium 4.3 mmol/L (3.5-5.1)
[2023-12-30 09:11] LABS: Thyroid Stimulating Hormone 2.185 uIu/ml (0.300-4.500)
--- NOTE | 2023-12-30 09:20 | Cardiology Progress Note ---
Date of Service December 30, 2023 Assessment & Plan (1) Intermittent lightheadedness: (2) Bradycardia: (3) Presence of Watchman left atrial appendage closure device: (4) Heart murmur: (5) CVA (cerebral vascular accident): (6) HBP (high blood pressure): Plan 1. Lightheadedness: Review of outpatient records indicates that she had clear symptomatic bradycardia on December 27, 2023. Their notes indicate that she had symptoms associated with atrial standstill and a ventricular escape which was symptomatic, however electrocardiogram could not be done at that time. She therefore went to the emergency room at [place], there an electrocardiogram showed a junctional escape rhythm at 40 bpm. This is consistent with severe symptomatic sinus bradycardia and a pacemaker is indicated. 2. 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 A pacemaker is required for heart rate support, she is on no medications to cause this. 3. Watchman: She does have a watchman in place, she has not been in atrial fibrillation here but I would not start anticoagulation but we should continue aspirin. 4. Heart murmur: She is reported to have a history of a heart murmur, I thought she might have a faint heart murmur but her echo does not show significant valvular heart disease. 5. CVA: I cannot tell from the son's description as to whether a CVA was identified (it sounds as though it was not seen on scanning), perhaps this was speculation before the scan. We may be able to sort that out with further records. 6. Hypertension: Her systolic blood pressure is quite elevated at times, at other times not although generally somewhat elevated. Based on her measurements here it is quite labile. She is on low-dose blood pressure medications, I would probably not increase them until we have a better control of her rhythm. At that point we can add beta-blockade if indicated (such as for heart rate control during atrial fibrillation). I reviewed the indications, procedure, risks and alternatives with the patient with her son present in the room, and answered all questions. Patient and her son understand and agree to the procedure. Consent obtained. I also reviewed the risks and use of sedation, patient and her son understand and consent obtained. Admission and Anticipated Discharge Date Admission Date: December 27, 2023 Subjective She is feeling well currently, she still does not have a good memory of her recent events. She is accompanied by one of her sons who does describe recent events consistent with symptomatic bradycardia. Physical Exam Physical Exam: Constitutional: Alert, cooperative and in no distress. HEENT: Unremarkable Neck: No jugular venous distention, carotid pulses are normal and equal bilaterally without bruits. Pulmonary: Clear to auscultation bilaterally. Cardiac: Regular rhythm with no significant murmur and no gallop or rub. Abdomen: Soft, nontender with normal bowel sounds. Extremities: No edema. Neurologic: No focal findings. Skin: No rash, ecchymoses or petechiae. Results & Data Vital Signs (Past 12 Hours) Vital Signs Temp Pulse Pulse Resp BP BP Pulse Ox 12/30/23 07:34 62 12/30/23 07:17 36.8 C 61 18 147/70 H 92 12/30/23 02:15 36.6 C 71 18 145/69 H 95 12/29/23 23:24 67 12/29/23 23:00 12/29/23 22:35 36.5 C 73 18 120/66 94 O2 Del Method O2 Del Method 12/30/23 07:34 12/30/23 07:17 Room Air 12/30/23 02:15 Room Air 12/29/23 23:24 12/29/23 23:00 Room Air 12/29/23 22:35 Room Air Laboratory Results Comprehensive Metabolic Panel 12/30/23 Range/Units 08:29 Sodium 139 (136-145) mmol/L Potassium 4.3 (3.5-5.1) mmol/L Chloride 109 H (98-107) mmol/L Carbon Dioxide 24 (21-32) mmol/L BUN 26 H (6-23) mg/dl Creatinine 1.07 (0.6-1.2) mg/dl Glucose 262 H (70-99(Fasting)) mg/dl Calcium 8.6 (8.6-10.3) mg/dl Intake and Output 12/29/23 12/30/23 12/30/23 22:59 06:59 14:59 Intake Total 240 / 920 Balance 240 / 919 Intake: Oral 240 / 920 Other: Other Intake Source sips # Unmeasured Voids 1 1 Weight 59.2 kg Weight Measurement Method Built in [facility] Diagnostic Findings Telemetry: Sinus rhythm and sinus bradycardia since admission, rate 50 to 60 bpm. PG Care Time/CCT Total # of Minutes Spent Total Time Spent with Patient: Total time spent is greater than 50% in coordination of care (as documented) at patient's floor/unit and/or counseling patient: Coding Level of Care Code 49915 SUB INP/OBS CARE 3/50MIN Diagnoses Intermittent lightheadedness R42 Bradycardia R00.1 Presence of Watchman left atrial appendage closure device Z95.818 Heart murmur R01.1 CVA (cerebral vascular accident) I63.9 HBP (high blood pressure) I10
[2023-12-30] MEDS: LACTATED RINGER'S 1,000 ML IV SCH (10:04)
--- NOTE | 2023-12-30 14:02 | Pre Anesthesia Assessment ---
Date of Service December 30, 2023 Pre Sedation Assessment Vital Signs Temp Pulse Pulse Resp BP BP Pulse Ox 12/30/23 13:23 36.7 C 65 18 131/69 99 12/30/23 11:25 36.7 C 62 18 128/84 97 12/30/23 07:34 62 12/30/23 07:17 36.8 C 61 18 147/70 H 92 12/30/23 02:15 36.6 C 71 18 145/69 H 95 12/29/23 23:24 67 12/29/23 23:00 12/29/23 22:35 36.5 C 73 18 120/66 94 12/29/23 19:25 36.7 C 65 20 114/64 94 12/29/23 16:35 63 12/29/23 15:11 67 16 149/85 H 95 O2 Del Method O2 Del Method 12/30/23 13:23 Room Air 12/30/23 11:25 Room Air 12/30/23 07:34 12/30/23 07:17 Room Air 12/30/23 02:15 Room Air 12/29/23 23:24 12/29/23 23:00 Room Air 12/29/23 22:35 Room Air 12/29/23 19:25 Room Air 12/29/23 16:35 12/29/23 15:11 Room Air Cardiovascular RRR, no murmur, no edema + bradycardic Respiratory normal respiratory effort, lungs clear to auscultation Pre-Sedation Airway Assessment Smoking Status: Never smoker Hx Sleep Apnea: No Short, Thick Neck: No Thyromental Distance: > or= 3.5 Finger Breadths Oral Cavity: + WNL Mallampati Class: II ASA: ASA3 NPO Status Date of Last Intake of Fluids: 12/30/23 Time of Last Intake of Fluids: 08:00 Date of Last Intake of Solid Food: 12/30/23 Time of Last Intake of Solid Foods: 08:00 Procedure Planning Contraindications for Sedation: none Current Medications Reviewed: Yes Notes The planned sedation has been discussed with the patient. Informed Consent was obtained. I have identified the patient, determined the appropriateness of sedation and have assessed the patient immediately prior to the procedure. All medicine(s) and interventions are by my order.
[2023-12-30] MEDS: ceFAZolin 330 MG/ML 1 GM VIAL IV SCH (14:32)
[2023-12-30] MEDS: ceFAZolin 330 MG/ML 1 GM VIAL ONE (14:33)
[2023-12-30] MEDS: VANCOMYCIN HCL 1000MG/20ML VIAL ONE (14:36)
[2023-12-30] MEDS: LIDOCAINE 1% LOCAL 20 ML VIAL ONE (14:36)
[2023-12-30] MEDS: WATER, STERILE FOR INJ 10 ML VIAL ONE (14:36)
[2023-12-30] MEDS: fentaNYL citrate PF 100 MCG/2 ML VIAL ONE ×2 (16:00→17:17)
[2023-12-30] MEDS: MIDAZOLAM HCL 5 MG/ML 1 ML VIAL ONE (16:00)
--- NOTE | 2023-12-30 16:13 | Electrophysiology Report ---
Date of Service December 30, 2023 Electrophysiology Procedure Electrophysiology Procedure Report Preoperative diagnosis: Sick sinus syndrome with severe sinus node dysfunction Postoperative diagnosis: Same Procedure: Dual-chamber pacemaker implantation Surgeon: Rajan Armstrong MD Estimated blood loss: 20 cc Specimens: None Anesthesia: Local with sedation Procedure details: After obtaining informed consent for the procedure, the patient was brought to the laboratory and prepped and draped in the standard sterile manner. The left prepectoral region was anesthetized with 1% lidocaine local anesthetic and left axillary venipuncture was performed by percutaneous technique and a guidewire placed through the left subclavian vein into the superior vena cava. The area was further infiltrated with 1% lidocaine local anesthetic and a 5 cm incision was made parallel to the left clavicle and 2 cm below it and carried down to the anterior pectoralis fascia. A pacemaker pocket was formed by blunt dissection anterior to the pectoralis fascia and a vancomycin soaked sponge was placed in the pocket. An 8.5 [place] Medtronic lead introducer was placed over the guidewire into the left subclavian vein, the dilator and guidewire were removed and a bipolar active fixation steroid tipped atrial lead was advanced through the introducer into the inferior vena cava. A guidewire was placed through the introducer and the introducer was stripped from the lead and guidewire. A 7 [place] Medtronic lead introducer was placed over the guidewire into the left subclavian vein, the dilator and guidewire were removed and a and a left bundle branch administrator sheath was advanced into the right ventricle. Multiple attempts were made to place a left bundle lead, however adequate thresholds could not be obtained and high impedances were present. Ultimately this was abandoned and a bipolar active- fixation steroid tipped ventricular pacing lead was advanced introducer into the superior vena cava. Using a curved stylette the ventricular lead was advanced through the right ventricular outflow tract into the pulmonary artery and then using a straight stylette was positioned in the right ventricular apex. Several different positions were tested before adequate measurements were obtained. The screw was extended fixing the lead in position. Pacing and sensing thresholds were evaluated in bipolar configuration and are recorded on the implant data sheet. Using a curved stylette the atrial lead was positioned in the region of the atrial appendage and the screw extended fixing the lead in position. Pacing and sensing thresholds were evaluated in bipolar configuration and are recorded on the implant data sheet. Once the leads were in position they were attached to the anterior pectoralis fascia using 2 sutures of 2-0 silk around each lead collar. The vancomycin soaked sponge was removed from the pocket, hemostasis was obtained, the pacemaker was attached to the leads and placed in the pocket with the leads coiled beneath it. The incision was closed with a running double subcutaneous closure of 3-0 Vicryl absorbable suture, followed by running subcuticular skin closure of 4-0 Vicryl absorbable suture. Bacitracin ointment was placed on the incision and a dressing applied. [facility] Electrophysiology codes Indication for Procedure (1) SSS (sick sinus syndrome): Pacing Procedure 1: Pacin Insert/Replace Pacer A & V PG Moderate Sedation Codes Moderate Sedation Codes Procedure 1: Sedation/Anesthesia: 97394 Mod Sedation by the same physician;Init15 Min Child Age 5 & Up Procedure 2: Sedation/Anesthesia: 08214 Mod Sedation by the same physician; Ea [id number] Minutes
[2023-12-30] MEDS ORDERED: ACETAMINOPHEN 325 MG TAB PO PRN (16:14)
[2023-12-30] MEDS ORDERED: ACETAMINOPHEN W/CODEINE #3 1 TAB PO PRN (16:14)
--- NOTE | 2023-12-30 16:40 | Post Anesthesia Assessment ---
Date of Service December 30, 2023 Post Sedation Assessment Vital Signs Temp Pulse Pulse Resp BP BP Pulse Ox 12/30/23 16:20 36.8 C 60 18 158/74 H 94 12/30/23 16:05 36.8 C 65 18 160/77 H 93 12/30/23 13:23 36.7 C 65 18 131/69 99 12/30/23 11:25 36.7 C 62 18 128/84 97 12/30/23 07:34 62 12/30/23 07:17 36.8 C 61 18 147/70 H 92 12/30/23 02:15 36.6 C 71 18 145/69 H 95 12/29/23 23:24 67 12/29/23 23:00 12/29/23 22:35 36.5 C 73 18 120/66 94 12/29/23 19:25 36.7 C 65 20 114/64 94 O2 Del Method O2 Del Method 12/30/23 16:20 Room Air 12/30/23 16:05 Room Air 12/30/23 13:23 Room Air 12/30/23 11:25 Room Air 12/30/23 07:34 12/30/23 07:17 Room Air 12/30/23 02:15 Room Air 12/29/23 23:24 12/29/23 23:00 Room Air 12/29/23 22:35 Room Air 12/29/23 19:25 Room Air Recovery Score Activity: Moves 4 extremities Respiration: Deep Breath/Cough Circulation: +/-20% PreAnes Value Consciousness: Fully Awake Oxygen Saturation: > 92% On Room Air Post Anesthesia Score: 10 Discharge Sedation Level of Care: Fast Track Phase II Post Sedation Plan On clinical assessment, the patient appears to have tolerated the sedation without complications. Patient is recovering as anticipated. Patient will continue to be monitored by nursing and may be discharged when sedation discharge criteria are met per below protocol. Upon Completions of procedure up to 15 minutes continue every 5 minute vital signs and the P.A.R. score; then discharge to a Phase I or Fast Track to Phase II per the following guidelines: * Discharge Patient to appropriate Phase II area if PAR is 8 or greater or return to pre- procedure baseline. The post - procedure orders will be as directed. * If PAR score is less than 8 or not return to pre-procedure baseline then patient will follow Phase I monitoring till PAR is reached for Phase II. The Phase I may be done in procedure room or may call to secure a Phase I area. * If naloxone or flumazenil are used for reversal, hold in Phase I for continued monitoring from when last reversal dose was given for a minimum of 60 minutes or longer pending the nurse and/or physician discretion of patient condition before discharge to Phase II. Please call the Sedation Physician to re-evaluate and complete post-note for discharge to Phase II area. Do NOT discharge from procedure sedation or Phase 1 until post- sedation evaluation note is complete by procedure /sedation MD Sedation Discharge Instructions to be given to the patient at discharge to home.
--- NOTE | 2023-12-30 19:17 | Hospitalist Progress Note ---
Date of Service December 30, 2023 Assessment & Plan (1) SSS (sick sinus syndrome): Plan: based on the available records from [facility], clinical history, symptoms, etc it appears she is having symptomatic bradycardia in the context of sick sinus syndrome. TSH wnl. she is not on any AV sonny agents. there has been no documented orthostasis to account for her dizziness/lightheadedness symptoms. Dr Armstrong was able to review some of the reports from [place]. in light of all of the above information permanent pacemaker insertion will take place later today by Dr Armstrong. appreciate his assistance. (2) Bradycardia: Plan: well-documented in the records from [facility]. 1 of the office notes from [place] stated they saw transient atrial standstill with ventricular escape rhythm. further, she has had brief episodes of bradycardia here. some HRs have briefly hit the 30s and 40s. plan - permanent pacemaker placement today as in #1 above. (3) Intermittent lightheadedness: Plan: presumed 2nd to severe bradycardia / SSS. see above. prior to having all outside medical records available she was given IV fluids and her polypharmacy was adjusted. specifically, aricept and namenda - as these can cause orthostasis/dizziness/near-syncope - are on hold. gabapentin dose reduced to 100mg BID. trazodone dose decreased to 25mg HS. Oxybutinin also placed on hold as this med has anticholinergic side effects. TSH wnl. Echo here - low normal EF 50-55%, no significant valvular disease appreciate Dr Armstrong's assistance. to laboratory machinist today for permanent pacemaker placement. (4) CVA (cerebral vascular accident): Plan: Reported history of CVA 1 year ago - hospitalized at [facility] for such was dx with PAF at that time? she ultimately underwent Watchman procedure as she was deemed a poor chronic anticoagulation candidate procedure done 10/[address] without acute stroke or other pathology Remains on statin and ASA for secondary prevention Lipid profile - LDL was 34 HDL was 59 no PAF seen while here (5) DM2 (diabetes mellitus, type 2): Plan: HbA1c 6.8 Holding PO meds SSI novolog (6) Insomnia: Plan: Cont reduced trazodone dose of 25mg HS (7) Overactive bladder: Plan: was taking both solifenacin and mirabegron at home; pharmacy records also show she had prescription for ? tolterodine as well ? anticholinergic was placed on hold mirabegron has been substituted for vibegron (8) Presence of Watchman left atrial appendage closure device: Plan: placed at [facility] 2022 (9) PAF (paroxysmal atrial fibrillation): Plan: none seen while here, but per [facility] records has had PAF in the past is NOT on chronic anticoagulation (10) CKD stage 3b, GFR 30-44 ml/min: Plan: it appears baseline CrCl is low 30s BMP am for stability (11) Dementia: Plan: presumed moderate, or mod-severe, as she has been taking both aricept & namenda at home no agitation while here Plan son updated at bedside today will need post-pacer cxr in am tomorrow, labs, etc had PT/OT yesterday - cleared for home by each service Admission and Anticipated Discharge Date Admission Date: December 27, 2023 Subjective tele overnight - very brief episodes of sinus bradycardia to the 30s and 40s. Minor pauses seen (2-2.5 sec). no AV block identified. pt sitting in chair without complaints. son at bedside. Dr Armstrong had seen earlier in the day. Pacemaker insertion planned for today. we received records from Dr Frank's cardiology office in [place]. an EKG from their office showed severe sinus bradycardia with rate ~40. further, office records documented that she had had atrial standstill with a ventricular escape rhythm. she was sent to [facility]; records there suggest she was seen in the ER and admitted but was housed in ER due to lack of bed on the tele floor. family decided to bring patient to [facility] on 12/26. Review of Systems Review of Systems: cv - no chest pain pulm - no dyspnea GI - no abd pain Physical Exam Physical Exam: gen - NAD, sitting in chair comfortably neck - no JVD mouth - MMM heart - RRR, s1 s2, 1/6 CLARISSA LSB lungs - CTA b/l abd - soft NT ND BS+ ext - no edema, pulses 2+ b/l Results & Data Results & Data Vital Signs (Past 12 Hours) Vital Signs Temp Pulse Pulse Resp BP BP Pulse Ox 12/30/23 18:30 60 17 162/88 H 97 12/30/23 18:00 60 12 166/84 H 97 12/30/23 17:29 60 14 156/76 H 98 12/30/23 17:22 60 12/30/23 16:59 60 13 153/83 H 96 12/30/23 16:45 36.3 C L 61 15 157/81 H 95 12/30/23 16:20 36.8 C 60 18 158/74 H 94 12/30/23 16:05 36.8 C 65 18 160/77 H 93 12/30/23 13:23 36.7 C 65 18 131/69 99 12/30/23 11:25 36.7 C 62 18 128/84 97 12/30/23 07:34 62 O2 Del Method 12/30/23 18:30 Room Air 12/30/23 18:00 Room Air 12/30/23 17:29 Room Air 12/30/23 17:22 12/30/23 16:59 Room Air 12/30/23 16:45 Room Air 12/30/23 16:20 Room Air 12/30/23 16:05 Room Air 12/30/23 13:23 Room Air 12/30/23 11:25 Room Air 12/30/23 07:34 Laboratory Results Laboratory Results - last 24 hr 12/29/23 12/30/23 12/30/23 20:17 07:16 08:29 Sodium 139 Potassium 4.3 Chloride 109 H Carbon Dioxide 24 Anion Gap 6 BUN 26 H Creatinine 1.07 Est Cr Clr Drug Dosing 29.8 Est GFR ( Amer) 55.2 Est GFR (Non-Af Amer) 47.6 BUN/Creatinine Ratio 24.3 H Glucose 262 H POC Glucose 85 92 Calcium 8.6 TSH 2.185 12/30/23 12/30/23 11:23 16:46 Sodium Potassium Chloride Carbon Dioxide Anion Gap BUN Creatinine Est Cr Clr Drug Dosing Est GFR ( Amer) Est GFR (Non-Af Amer) BUN/Creatinine Ratio Glucose POC Glucose 105 H 99 Calcium TSH PG Care Time/CCT Total # of Minutes Spent Total Time Spent with Patient: Total time spent is greater than 50% in coordination of care (as documented) at patient's floor/unit and/or counseling patient: Coding Level of Care Code 14423 SUB INP/OBS CARE 2/35MIN Diagnoses SSS (sick sinus syndrome) I49.5 Bradycardia R00.1 Intermittent lightheadedness R42 CVA (cerebral vascular accident) I63.9 DM2 (diabetes mellitus, type 2) E11.9 Insomnia G47.00 Overactive bladder N32.81 Presence of Watchman left atrial appendage closure device Z95.818 PAF (paroxysmal atrial fibrillation) I48.0 CKD stage 3b, GFR 30-44 ml/min N18.32 Dementia F03.90
[2023-12-31 06:07] LABS: Hematocrit (blood only) 45.8 % (37.0-47.0); Hemoglobin 14.6 g/dl (12.0-16.0); Mean Corpuscular Hemoglobin 30.7 pg (25.0-34.0); Mean Corpuscular Hgb Conc 31.9 g/dL (32.0-36.0); Mean Corpuscular Volume 96.2 fL (80.0-100.0); Mean Platelet Volume 10.7 fL (9.4-12.4); Platelet Count 132 K/uL (130-400); RDW Standard Deviation 46.2 fL (36.4-46.3); Red Blood Count 4.76 M/uL (4.20-5.40); White Blood Count 9.33 K/ul (4.8-10.8)
[2023-12-31 06:16] LABS: BUN Creatinine Ratio 28.6 (10-20); Calcium 8.1 mg/dl (8.6-10.3); Creatinine Clr Calc Pharmacy 37.9 ml/min; Est GFR (Non-African American) 63.8 ml/min; Potassium 4.3 mmol/L (3.5-5.1)
--- NOTE | 2023-12-31 06:49 | XRay Report ---
XR chest 2V PA/lateral HISTORY: 83 years-old Female EXACT TIME ORDERED Evaluate for pneumothorax and l status post placemen t of a left subclavian pacer COMPARISON: 12/27/2023 TECHNIQUE: PA and lateral views of the chest FINDINGS: Dual lead left subclavian pacer. The cardiac silhouette is normal in size. Left atrial exclusion nataly ce. No pneumothorax, pleural effusion or airspace consolidation. The bones appear grossly intact. Sig moidal scoliosis of the spine. IMPRESSION: Status post placement of a dual lead left subclavian pacer. No postprocedural pneumothora x identified. ACT 112: Negative or not required by law. The above report was generated using voice recognition software. It may contain grammatical, syntax o r spelling errors. Electronically signed by: Juma Wang M.D. 12/31/2023 6:47 AM
--- NOTE | 2023-12-31 09:46 | Cardiology Progress Note ---
Date of Service December 31, 2023 Assessment & Plan (1) SSS (sick sinus syndrome): (2) HBP (high blood pressure): Plan 1. Lightheadedness: Hopefully this controls her symptoms, she has a very labile blood pressure so it is still possible hypotension plays a component (which would be the case if she is bradycardic as a cause of her symptoms, but is possible it occurs at other times as well). 2. 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 A pacemaker is required for heart rate support, she was on no medications to cause this. Now with the pacemaker there is probably no restriction to medications that can be used. 3. Watchman: She does have a watchman in place, she has not been in atrial fibrillation here but I would not start anticoagulation but we should continue aspirin. 4. Hypertension: Her systolic blood pressure is quite elevated at times, at other times it is recorded as normal or even low. Her diastolic blood pressure tends to be well-controlled. Based on her measurements here her blood pressure is quite labile. She is on low-dose blood pressure medications, I would probably increase them until we have a better control of her blood pressure but I would be cautious about controlling it too tightly, that could be done as an outpatient and we will not be seeing her. 5. Postop pacemaker: She is doing well, the site looks good, the x-ray looks good and the device is functioning very well. She is stable to discharge from my standpoint. We have arranged remote follow-up for her with Dr. Martinez, her son is arranging pacemaker follow-up with their office. Have therefore not scheduled anything with us, although we could see her if other follow-up cannot be arranged. Admission and Anticipated Discharge Date Admission Date: December 27, 2023 Subjective She is feeling well, minor site discomfort. No chest discomfort, no shortness of breath. She has not been very active since device implantation yesterday. Physical Exam Physical Exam: The site is clean and dry, no obvious bleeding, no swelling or erythema. There is some ecchymosis as expected. Cardiac rhythm is regular with no rub Lungs are clear Results & Data Vital Signs (Past 12 Hours) Vital Signs Temp Pulse Pulse Resp BP Pulse Ox O2 Del Method 12/31/23 07:13 37.2 C 70 16 170/76 H 94 Room Air 12/31/23 02:45 36.6 C 75 18 153/73 H 94 Room Air 12/31/23 00:00 65 12/30/23 22:47 36.7 C 64 18 130/62 94 Room Air Laboratory Results CBC 12/31/23 Range/Units 05:25 WBC 9.33 (4.8-10.8) K/ul RBC 4.76 (4.20-5.40) M/uL Hgb 14.6 (12.0-16.0) g/dl Hct 45.8 (37.0-47.0) % Plt Count 132 (130-400) K/uL Comprehensive Metabolic Panel 12/31/23 Range/Units 05:25 Sodium 140 (136-145) mmol/L Potassium 4.3 (3.5-5.1) mmol/L Chloride 110 H (98-107) mmol/L Carbon Dioxide 23 (21-32) mmol/L BUN 24 H (6-23) mg/dl Creatinine 0.84 (0.6-1.2) mg/dl Glucose 131 H (70-99(Fasting)) mg/dl Calcium 8.1 L (8.6-10.3) mg/dl Intake and Output 12/30/23 12/31/23 12/31/23 22:59 06:59 14:59 Intake Total 200 / 400 200 / 400 1000 / 1000 Balance 200 / 400 200 / 400 1000 / 1000 Intake: IV 1000 / 1000 Lactated Ringer's 1,000 ml @ 15 1000 / 1000 mls/hr IV .Q24H [facility] Rx#: [id number] Oral 200 / 400 200 / 400 Other: Weight 59.1 kg Diagnostic Findings Postop ECG: Atrial pacing, intact AV conduction, normal pacer function Telemetry: Mostly atrial pacing, appropriate function Chest x-ray: Good lead position, no pneumothorax. Pacemaker evaluation: Excellent pacing and sensing characteristics PG Care Time/CCT Total # of Minutes Spent Total Time Spent with Patient: Total time spent is greater than 50% in coordination of care (as documented) at patient's floor/unit and/or counseling patient: Coding Level of Care Code 97100 Post Operative Follow-Up Diagnoses SSS (sick sinus syndrome) I49.5 HBP (high blood pressure) I10 CPT Codes Dual Lead Pacemaker System - [id number] ([id number])
--- NOTE | 2023-12-31 16:12 | Discharge Summary ---
Date of Service December 31, 2023 Admission HPI Per Admitting Provider 83 year old female presenting per cardiology recommendations with concern for lightheadedness/dizziness. History obtained from both patient and from son, Ovi, over the phone. Was seen at neurophysiologist office on Friday- [facility] Dr. Frank. Reports that they saw PA in office on Friday. They recommend that she come go to ED for evaluation and felt she may need a pacemaker. Per son she had a heart monitor for about 24 hours, unclear as to what data from that showed. She has been having interment symptoms for over a year. Occur every 1-2 weeks. No new or acutely worsening symptoms in the past week. Periods of lighthead edness/dizziness, confusion, balance is effected, chest "cramping" and palpitations. A year ago was treated for a CVA and after that had a watchman procedure. Denies any current symptoms and she states that she has not been symptomatic at all today. Denies chest pain, dyspnea, lightheadedness, dizziness, palpitations. ED work-up Significant for: CXR without acute pathology, Head CT- Mild cerebral atrophy and patchy periventricular white matter low density consistent with chronic small vessel disease and/or senescent changes. No acute large vessel infarct or intracranial hemorrhage is seen. EKG- NSR with anterolateral infarct undetermined age, trop= 8.3 Discharge Exam gen - NAD, sitting in chair comfortably neck - no JVD mouth - MMM heart - RRR, s1 s2, 1/6 CLARISSA LSB lungs - CTA b/l abd - soft NT ND BS+ ext - no edema, pulses 2+ b/l Discharge Data Allergies Allergy/AdvReac Type Severity Reaction Status Date / Time crab Allergy Rash Verified 12/27/23 20:39 meperidine [From Demerol] Allergy Rash Verified 12/27/23 20:39 Penicillins Allergy Rash Verified 12/27/23 20:39 Consultations 12/27/23 22:23 Consult Cardiology Routine 12/27/23 23:16 ED Decision to Admit Stat Procedures Performed Operation Date: 12/30/23 14:00 Actual Procedures p Pacer with A/V Leads (Dual)(Left) - Rajan Armstrong MD Ordered Studies 12/27/23 19:57 CT head/brain wo con Stat 12/30/23 13:45 EP Lab Images for PACS ONCE Hospital Course (1) SSS (sick sinus syndrome): based on the available records from [facility]iology, clinical history, symptoms, etc it appears she is having symptomatic bradycardia in the context of sick sinus syndrome. TSH wnl. she is not on any AV sonny agents. there has been no documented orthostasis to account for her dizziness/lightheadedness symptoms. Dr Armstrong was able to review some of the reports from [place]. in light of all of the above information permanent pacemaker insertion will take place later today by Dr Armstrong. appreciate his assistance. (2) Bradycardia: well-documented in the records from [facility] Cardiology. 1 of the office notes from [place] stated they saw transient atrial standstill with ventricular escape rhythm. further, she has had brief episodes of bradycardia here. some HRs have briefly hit the 30s and 40s. plan - permanent pacemaker placement today as in #1 above. (3) Intermittent lightheadedness: presumed 2nd to severe bradycardia / SSS. see above. prior to having all outside medical records available she was given IV fluids and her polypharmacy was adjusted. specifically, aricept and namenda - as these can cause orthostasis/dizziness/near-syncope - are on hold. gabapentin dose reduced to 100mg BID. trazodone dose decreased to 25mg HS. Oxybutinin also placed on hold as this med has anticholinergic side effects. TSH wnl. Echo here - low normal EF 50-55%, no significant valvular disease appreciate Dr Armstrong's assistance. to manufacturing lab technician today for permanent pacemaker placement. (4) CVA (cerebral vascular accident): Reported history of CVA 1 year ago - hospitalized at [facility] for such was dx with PAF at that time? she ultimately underwent Watchman procedure as she was deemed a poor chronic anticoagulation candidate procedure done 10/[address] without acute stroke or other pathology Remains on statin and ASA for secondary prevention Lipid profile - LDL was 34 HDL was 59 no PAF seen while here (5) DM2 (diabetes mellitus, type 2): HbA1c 6.8 Holding PO meds SSI novolog (6) Insomnia: Cont reduced trazodone dose of 25mg HS (7) Overactive bladder: was taking both solifenacin and mirabegron at home; pharmacy records also show she had prescription for ? tolterodine as well ? anticholinergic was placed on hold mirabegron has been substituted for vibegron (8) Presence of Watchman left atrial appendage closure device: placed at [facility] 2022 (9) PAF (paroxysmal atrial fibrillation): none seen while here, but per [facility] records has had PAF in the past is NOT on chronic anticoagulation (10) CKD stage 3b, GFR 30-44 ml/min: it appears baseline CrCl is low 30s BMP am for stability (11) Dementia: presumed moderate, or mod-severe, as she has been taking both aricept & namenda at home no agitation while here Plan son updated at bedside today will need post-pacer cxr in am tomorrow, labs, etc had PT/OT yesterday - cleared for home by each service Discharge Plan Discharge Items Patient Disposition: Home - Self-Care Reason For Visit: Dizziness/lightheadedness Discharge Diagnosis: 1. dizziness/lightheadedness - suspected to be secondary to severe bradycardia (slow pulse) 2. sick sinus syndrome - pacemaker placement by Dr Rajan Armstrong 3. prior history of atrial fibrillation with Watchman procedure - 2022 4. prior history of stroke 5. dementia 6. type 2 diabetes 7. overactive bladder 8. high blood pressure Activity: Per Instructions section Non-emergency contact: Primary Care Provider and Munitions Handler Call non-emergency contact if: you have any medication questions and your symptoms worsen Follow-up/Referrals: Rajan Armstrong MD [Physician] - (if you have any concerns regarding your pacemaker between the time of hospital discharge and follow-up with your doctors in [place] you can call Dr Armstrong's office for assistance ) Michele Frank MD [Outside Practitioners] - 01/15/24 10:00 am () Bart Daniels M.D. [Primary Care Provider] - 01/05/24 3:00 pm (Spoke with [facility] call center, hosp d/c appt scheduled 01/04 @ 3:00. ) Diet: Carb Consistent or DM2 and Heart Healthy Addtl Attending Provider Instructions: Mrs Obregon, You were hospitalized due to having episodes of dizziness/lightheadedness. You had seen your neurophysiologist in [place], and it was suspected that the dizziness spells were caused by bradycardia. Bradycardia is when your pulse/heart rate goes very low. At times your pulse was dropping into the 30s - this is VERY slow. You were evaluated at [facility] by Dr Rajan Armstrong. He reviewed all of your records and your telemetry here. He felt, much like your neurophysiologist in [place], that you needed a pacemaker. Dr Armstrong implanted this on 12/30/23. Your procedure went well. The pacemaker is functioning correctly. Your incision looks very good. It is still possible that there are other factors contributing to your dizziness/lightheadedness including low blood sugar, medicine side effects, etc. Your doctors will continue to monitor you back home in [place]. Recommendations - 1. LOWER your trazodone to 25mg at bedtime; you previously took 50mg. Simply cut in half. 2. HOLD your solifenacin as this medication sometimes causes dizziness/lightheadedness. 3. LOWER your glimepiride to 1mg once daily with your morning meal. You previously were taking 2mg. Your blood sugars were excellent while here. 4. LOWER your gabapentin to 100mg twice daily. 5. When you arrive home please check the name/make of your glucometer. You can call us back at [facility] to let us know which type of meter you have. Once I have that information I will prescribe the right test strips for you. Our navigator for our program is Arleth Aguero. Her phone number is -- [phone]. You can call and leave a message with the brand of your meter at your convenience. 6. If possible please check your blood sugar twice daily each day. Check every morning, and at least 1 other time later in the day. 7. If you ever have a spell of dizziness or lightheadedness please CHECK YOUR BLOOD SUGAR to see if you are low. 8. For the next few days as you recover at home please use caution with w alking, etc. Use the walker provided as much as possible. Follow-up - see separate section Return to [facility] or any other hospital if - * you have fever over 100 degrees * you have any concerns about your pacemaker insertion site (increased redness, drainage, increased pain, severe bruising or swelling, etc) * you have chest pains * you have shortness of breath * any other concerns It was our pleasure to care for you! -Dr Nava Kaiser Full Stack Net Developer Provider Instructions: ACTIVITY RECOMMENDATIONS following your pacemaker insertion: * Do not raise the LEFT arm over the head, behind the neck or back, or above the level of the shoulder for 2 weeks. * You may use the sling on your left arm while you sleep to prevent the left arm from moving during your sleep. You can use it during the daytime as well. SPECIAL CARE INSTRUCTIONS: * If bleeding occurs, apply direct pressure to area for 5 minutes. * Call your doctor if you have severe pain, fever, drainage or bleeding at site. * Keep dressing on and dry for 48 hours then remove. * Keep any scheduled doctor's appointment. * Implant Card - hand held device with website information given. SKIN IRRITATION: * You may experience some redness and/or swelling in the area where radiation was administered. If any skin irritation occurs, please contact your family physician. Pending Studies at Discharge: No Stand-Alone Forms: My [employer], Smoking Cessation Medications and DC Order Prescriptions: Continued atorvastatin 40 mg tablet 40 mg PO DAILY omega-3 fatty acids [Fish Oil Concentrate] 1,000 mg Capsule 1,000 mg PO BID donepezil 10 mg tablet 10 mg PO HS aspirin [Aspir-Low] 81 mg Tablet,Delayed Release (Dr/Ec) 81 mg PO DAILY acetaminophen [Tylenol Extra Strength] 500 mg Tablet 1,000 mg PO DAILY lisinopril 2.5 mg tablet 2.5 mg PO BID ipratropium bromide 21 mcg (0.03 %) spray,non-aerosol 2 spray INTRANASAL Q12 memantine 10 mg tablet 10 mg PO BID Centrum Silver 0.4 mg-300 mcg- 250 mcg Tablet 1 tab PO DAILY Myrbetriq 50 mg tablet extended release 24 hr 50 mg PO DAILY Jardiance 10 mg tablet 10 mg PO QAM Mounjaro 5 mg/0.5 mL pen injector 5 mg SUBCUT .[id number] Rx Instructions: Q ur Changed cholecalciferol (vitamin D3) [Vitamin D3] 25 mcg (1,000 unit) Tablet 25 mcg PO DAILY Qty: 1 0RF gabapentin 100 mg capsule 100 mg PO QAM Qty: 1 0RF trazodone 50 mg tablet 25 mg PO HS Qty: 1 0RF gabapentin 100 mg capsule 100 mg PO HS Qty: 1 0RF glimepiride 2 mg tablet 1 mg PO DAILY Qty: 1 0RF Held solifenacin 5 mg tablet 5 mg PO DAILY Hold Instructions: hold unless your family doctor recommends resuming it Discharge Orders: Discharge Order (Routine); Ordered 12/31/23 Ordered By: Shoaib Willard/Other Patient Handouts: Sick Sinus Syndrome, Pacemakers, Living with a Pacemaker, Managing Type 2 Diabetes Admission Data Admit Date/Time: 12/27/23 21:58 Attending Provider: Shoaib Vick Admit Provider: Irlanda Koenig Primary Care Provider: Bart Daniels Other Providers: Rajan Armstrong; Anthony Villareal Coding Diagnoses SSS (sick sinus syndrome) I49.5 Bradycardia R00.1 Intermittent lightheadedness R42 CVA (cerebral vascular accident) I63.9 DM2 (diabetes mellitus, type 2) E11.9 Insomnia G47.00 Overactive bladder N32.81 Presence of Watchman left atrial appendage closure device Z95.818 PAF (paroxysmal atrial fibrillation) I48.0 CKD stage 3b, GFR 30-44 ml/min N18.32 Dementia F03.90
--- NOTE | 2023-12-31 16:13 | Electrocardiogram Report ---
Test Reason : Blood Pressure : / mmHG Vent. Rate : 060 BPM Atrial Rate : 060 BPM P-R Int : 254 ms QRS Dur : 090 ms QT Int : 408 ms P-R-T Axes : 074 010 063 degrees QTc Int : 408 ms Atrial-paced rhythm with prolonged AV conduction Low voltage QRS Abnormal ECG When compared with ECG of 27-DEC-2023 18:03, Electronic atrial pacemaker has replaced Sinus rhythm Criteria for Anterior infarct are no longer Present Criteria for Anterolateral infarct are no longer Present Confirmed by Arsenio Anderson ([id number]) on 12/31/2023 4:13:18 PM Referred By: Michele Frank Confirmed By:Arsenio Anderson
== END 2023-12-31 17:31 | disposition home or self-care (01) | DRG 244 ==
LOC: ED 17:45 → SUATTDRO 21:58 → 2E 21:58

== ENCOUNTER 2024-10-31 20:24 | Observation (INO) ==
[2024-10-31 21:05] LABS: Appearance Urine Cloudy (Clear); Bacteria Urine Automated 4+ (None Seen); Bilirubin Urine Negative (Negative); Blood Urine 2+ (Negative); Color Urine Yellow; Epithelial Cell Urine Auto 0-2 /hpf (0-2); Glucose Urine UA 3+ (Negative); Ketones Urine Negative (Negative); Leukocyte Esterase Urine 2+ (Negative); Nitrite Urine Negative (Negative); Protein Urine 1+ (Negative); Specific Gravity Urine 1.029 (1.000-1.030); Urobilinogen Urine Negative (Negative); WBC Urine Automated >50 /hpf (0-5); pH Urine 5.5 (4.5-7.5)
[2024-10-31 21:12] LABS: Basophils # (auto) 0.01 K/uL (0.00-0.20); Basophils % (auto) 0.1 %; Hematocrit (blood only) 44.9 % (37.0-47.0); Hemoglobin 14.6 g/dl (12.0-16.0); Immature Granulocytes # (auto) 0.06 K/uL (0.01-0.20); Immature Granulocytes % (auto) 0.5 %; Lymphocytes # (auto) 0.89 K/uL (1.20-3.40); Lymphocytes % (auto) 7.3 %; Mean Corpuscular Hemoglobin 30.4 pg (25.0-34.0); Mean Corpuscular Hgb Conc 32.5 g/dL (32.0-36.0); Mean Corpuscular Volume 93.3 fL (80.0-100.0); Mean Platelet Volume 11.1 fL (9.4-12.4); Monocytes # (auto) 0.82 K/uL (0.11-0.59); Monocytes % (auto) 6.7 %; Neutrophils # (auto) 10.44 K/uL (1.40-6.50); Neutrophils % (auto) 85.4 %; Platelet Count 149 K/uL (130-400); RDW Coefficient of Variation 13.8 % (11.5-14.5); RDW Standard Deviation 47.8 fL (36.4-46.3); Red Blood Count 4.81 M/uL (4.20-5.40); White Blood Count 12.22 K/ul (4.8-10.8)
--- NOTE | 2024-10-31 21:38 | Emergency Department Note ---
Impression & Plan Acute UTI, Leukocytosis, Elevated troponin, Hyperglycemia, AMS (altered mental status) ED Provider Note NAME: CHRISTY DE LA CRUZ AGE: 84 SEX: F : 1940 ARRIVES VIA: Walk-In INFORMANT: Patient ED PROVIDER(S): Albert Duran DO CHIEF COMPLAINT: Confusion, weakness and elevated blood sugar HPI: Patient is an 84-year-old female with a past medical history of CKD, paroxysmal A-fib, sick sinus syndrome, CVA and diabetes who presents to the ER with her son present at bedside who provides additional history and notes that he last saw her yesterday. When he saw her today around 5 PM he noticed that she was confused. Blood sugars were elevated consequently brought her in. Patient currently admits to a headache but denies any change or loss of vision. No chest pain or shortness of breath. No belly pain. No urinary symptoms. No other exacerbating or remitting factors. ADDITIONAL HISTORY OBTAINED: Per HPI Chronic Medical/Social Conditions Affecting Care: Per HPI PAST MEDICAL HISTORY:See Below PAST SURGICAL HISTORY:See Below FAMILY HISTORY:See Below SOCIAL HISTORY:See Below HOME MEDICATIONS:See Below ALLERGIES:See Below VITALS:See Below PHYSICAL EXAMINATION: GENERAL: Sitting up in bed, alert, well appearing, well nourished, no distress, non-toxic EYE EXAM: normal conjunctiva. PERRL and EOM's intact. OROPHARYNX: no exudate, no erythema, lips, buccal mucosa, and tongue normal and mucous membranes are moist NECK: supple, no nuchal rigidity, no adenopathy, non-tender LUNGS: Clear to auscultation. Normal chest wall mechanics HEART: no murmurs, S1 normal and S2 normal ABDOMEN: abdomen soft, non-tender, normo-active bowel sounds, no masses, no rebound or guarding. BACK: Back is symmetrical on inspection and there is no deformity, no midline tenderness, no CVA tenderness. SKIN: no rashes and no bruising UPPER EXTREMITIES: upper extremities are grossly normal. LOWER EXTREMITIES: No pitting edema. NEURO EXAM: Normal sensorium, cranial nerves II-XII intact, normal speech, no weakness of arms, no weakness of legs. No drift. Finger to nose intact. Gross sensation intact. MEDICAL DECISION MAKING: Patient is an 84-year-old female who presents ER for the above-stated complaint. IV was established and blood work was obtained. Son provided majority history and notes that he brought her in due to the confusion and elevated blood sugar. Labs show leukocytosis of 12,000. No significant anemia. BMP with a creatinine 1.7 up from baseline of 0.8. Glucose was elevated at 360. Troponin was elevated at 52. UA is consistent with a UTI. Do favor this likely because of the hyperglycemia and the confusion. Patient was given IV Rocephin and IV fluids. She was updated bedside. CT of the head was negative. Patient was discussed with the hospitalist for further evaluation management and treatment. Please see Dr. Whitmore's note for further management. Consults/Care Managements Discussions: Per [facility] Triage Nursing notes reviewed. Limited review of prior medical records performed Vital Signs: reviewed and remarkable for HTN Differential diagnosis: Differential diagnoses includes but is not limited to toxic, metabolic, infectious, traumatic, cardiac, neurologic, hematologic, psychiatric and inflammatory etiologies. ER treatment provided: See below Diagnostics interpreted by me include EKG and cardiac monitoring as listed below: -Cardiac Monitoring: An order was placed for continuous cardiac monitoring. The monitor shows a rate of 90 with sinus rhythm. -ECG: Sinus rhythm rate 93 Normal axis No PVCs QTc 395 -Laboratory studies:Interpreted by me as stated above in MDM and shown below. Imaging studies: Xrays: As interpreted by me: Portable AP upright 1 view of the chest shows no focal infiltrate CTs show: CT head shows no acute pathology per radiology Procedures:none Critical Care: None Past Med/Surg History Problem List (Updated 11/01/24 @ 01:28 by Albert Duran DO) AMS (altered mental status) (Acute) Hyperglycemia (Acute) Elevated troponin (Acute) Leukocytosis (Acute) Acute UTI (Acute) Dementia CKD stage 3b, GFR 30-44 ml/min PAF (paroxysmal atrial fibrillation) SSS (sick sinus syndrome) Heart murmur HBP (high blood pressure) Bradycardia Overactive bladder Insomnia Heart palpitations (Acute) Intermittent lightheadedness (Acute) CVA (cerebral vascular accident) DM2 (diabetes mellitus, type 2) Medical History Presence of Watchman left atrial appendage closure device DM2 (diabetes mellitus, type 2) CVA (cerebral vascular accident) Social History Smoking Status: Never smoker Hx Alcohol Use: Yes (occationally) Alcohol type: other Hx Substance Use: No Preferred Language: Chinese Communication Ability: Effective Environmental Research Project Manager Required: No Beliefs That Will Affect Care: None Current Living Situation: Alone Feels Safe at Home: Yes Assistive Devices: None Allergies Allergies Allergy/AdvReac Type Severity Reaction Status Date / Time crab Allergy Rash Verified 12/27/23 20:39 meperidine [From Demerol] Allergy Rash Verified 12/27/23 20:39 Penicillins Allergy Rash Verified 12/27/23 20:39 Home Meds Home Medications Medication Instructions Recorded Confirmed aspirin 81 mg tablet,delayed 81 mg PO DAILY 12/27/23 10/31/24 release atorvastatin 40 mg tablet 40 mg PO DAILY 12/27/23 10/31/24 donepezil 10 mg tablet 10 mg PO HS 12/27/23 10/31/24 empagliflozin 10 mg tablet 10 mg PO QAM 12/27/23 10/31/24 (Jardiance) ipratropium bromide 21 mcg (0.03 2 spray intranasal Q12 12/27/23 11/01/24 %) nasal spray memantine 10 mg tablet 10 mg PO BID 12/27/23 11/01/24 cdnslegd-ncm-boiqc acid 0.4 1 tab PO DAILY 12/27/23 10/31/24 mg-lycopene 300 mcg-lutein 250 mcg tablet (Centrum Silver) omega-3 fatty acids 1,000 mg 1,000 mg PO BID 12/27/23 10/31/24 capsule solifenacin 5 mg tablet 5 mg PO DAILY 12/27/23 10/31/24 tirzepatide 5 mg/0.5 mL 5 mg subcut .Q7DAYS 12/27/23 10/31/24 subcutaneous pen injector (Kalunjohnyro) gabapentin 100 mg capsule 200 mg PO QAM 10/31/24 10/31/24 gabapentin 100 mg capsule 300 mg PO QPM 10/31/24 10/31/24 ibuprofen 600 mg tablet (IBU) 600 mg PO BID 10/31/24 10/31/24 mirabegron 50 mg tablet,extended 50 mg PO DAILY 10/31/24 10/31/24 release 24 hr trazodone 50 mg tablet 50 mg PO HS 10/31/24 10/31/24 Previous Rx's Medication Instructions Recorded cholecalciferol (vitamin D3) 25 25 mcg PO DAILY #1 tab 12/31/23 mcg (1,000 unit) tablet (Vitamin D3) blood sugar diagnostic (OneTouch #100 ea 01/01/24 Verio test strips) lancets #100 ea 01/01/24 Results & Data (ED) Vital Signs Vital Signs - 24 hr 10/31/24 20:28 10/31/24 22:10 10/31/24 22:13 Temperature 36.4 C L Temperature Source Oral Pulse Rate 90 93 H Pulse Rate [Right Finger] 89 Pulse Rhythm Regular Pulse Rhythm [Right Finger] Regular Pulse Strength Normal Pulse Strength [Right Finger] Normal Respiratory Rate 18 21 Respiratory Effort / Characteristics Non-Labored Spontaneous Non-Labored Respiratory Depth Normal Normal Respiratory Pattern Regular Regular Blood Pressure 167/76 H Blood Pressure [Right Arm] 163/85 H Blood Pressure Mean 106 Blood Pressure Mean [Right Arm] 111 Blood Pressure Position [Right Arm] Lying Pulse Oximetry 97 96 Oxygen Delivery Method Room Air Room Air Sepsis Recent Fever Within 48 Hours No Sepsis New/Unexplained Change in Mental Status No Sepsis Action Taken by Nursing No Action Required Laboratory Data 10/31/24 20:44 10/31/24 20:44 Lab Results 10/31/24 10/31/24 10/31/24 Range/Units 20:30 20:35 20:44 WBC 12.22 H (4.8-10.8) K/ul RBC 4.81 (4.20-5.40) M/uL Hgb 14.6 (12.0-16.0) g/dl Hct 44.9 (37.0-47.0) % MCV 93.3 (80.0-100.0) fL MCH 30.4 (25.0-34.0) pg MCHC 32.5 (32.0-36.0) g/dL RDW Std Deviation 47.8 H (36.4-46.3) fL RDW Coeff of [place] 13.8 (11.5-14.5) % Plt Count 149 (130-400) K/uL MPV 11.1 (9.4-12.4) fL Immature Gran % (Auto) 0.5 % Neut % (Auto) 85.4 % Lymph % (Auto) 7.3 % Whitman % (Auto) 6.7 % Eos % (Auto) 0.0 % Baso % (Auto) 0.1 % Neut # (Auto) 10.44 H (1.40-6.50) K/uL Lymph # (Auto) 0.89 L (1.20-3.40) K/uL Whitman # (Auto) 0.82 H (0.11-0.59) K/uL Eos # (Auto) 0.00 (0.00-0.50) K/uL Baso # (Auto) 0.01 (0.00-0.20) K/uL Immature Gran # (Auto) 0.06 (0.01-0.20) K/uL Sodium 138 (136-145) mmol/L Potassium 4.1 (3.5-5.1) mmol/L Chloride 106 (98-107) mmol/L Carbon Dioxide 22 (21-32) mmol/L Anion Gap 10 (3-11) BUN 51 H (6-23) mg/dl Creatinine 1.73 H (0.6-1.2) mg/dl Est Cr Clr Drug Dosing 18.0 ml/min eGFR 28.60 BUN/Creatinine Ratio 29.5 H (10-20) Glucose 366 H* (70-99(Fasting)) mg/dl Calcium 9.5 (8.6-10.3) mg/dl Total Bilirubin 0.4 (0.2-1.0) mg/dl AST 27 (13-39) U/L ALT 26 (7-52) U/L Alkaline Phosphatase 106 H (34-104) U/L Troponin I High Sens 52.3 H* (0-14) pg/ml Total Protein 6.9 (6.0-8.3) gm/dl Albumin 3.6 (3.4-5.0) gm/dl Globulin 3.3 (2.5-4.0) gm/dl Albumin/Globulin Ratio 1.1 (0.9-2) Urine Color Yellow Urine Appearance Cloudy A (Clear) Urine pH 5.5 (4.5-7.5) Ur Specific [place] 1.029 (1.000-1.030) Urine Protein 1+ H (Negative) Urine Glucose (UA) 3+ H (Negative) Urine Ketones Negative (Negative) Urine Blood 2+ H (Negative) Urine Nitrite Negative (Negative) Urine Bilirubin Negative (Negative) Urine Urobilinogen Negative (Negative) Ur Leukocyte Esterase 2+ H (Negative) Urine WBC (Auto) >50 H (0-5) /hpf Urine RBC (Auto) 11-20 H (0-2) /hpf U Hyaline Cast (Auto) 3-5 H (0-2) /lpf U Epithel Cells (Auto) 0-2 (0-2) /hpf Urine Bacteria (Auto) 4+ H (None Seen) Adenovirus (PCR) Not Detected (NotDetected) B. pertussis DNA (PCR) Not Detected (NotDetected) B.parapertussis DNA PCR Not Detected (NotDetected) C. pneumoniae DNA (PCR) Not Detected (NotDetected) Coronavirus OC43 (PCR) Not Detected (NotDetected) Coronavirus HKU1 (PCR) Not Detected (NotDetected) Coronavirus 229E (PCR) Not Detected (NotDetected) SARS-CoV-2 (PCR) Not Detected (NotDetected) Coronavirus NL63 (PCR) Not Detected (NotDetected) Human Metapneumovir PCR Not Detected (NotDetected) Influenza Type A (PCR) Not Detected (NotDetected) Influenza Type B (PCR) Not Detected (NotDetected) M. pneumoniae (PCR) Not Detected (NotDetected) Parainfluenza 1 (PCR) Not Detected (NotDetected) Parainfluenza 2 (PCR) Not Detected (NotDetected) Parainfluenza 3 (PCR) Not Detected (NotDetected) Parainfluenza 4 (PCR) Not Detected (NotDetected) RSV (PCR) Not Detected (NotDetected) Entero/Rhino (PCR) Not Detected (NotDetected) Administered Medications Discontinued Medications Ceftriaxone Sodium (Rocephin) 2,000 mg in 50 mls @ 100 mls/hr IV NOW STA Stop: 10/31/24 22:03 Last Infusion: 11/01/24 00:46 Dose: Infused Documented By: Admin: 10/31/24 22:15 Dose: 100 mls/hr Documented By: DONNA Sodium Chloride (Nss) 1,000 mls @ 999 mls/hr IV .Q1H1M ONE Stop: 10/31/24 22:34 Last Infusion: 11/01/24 00:46 Dose: Infused Documented By: Admin: 10/31/24 22:15 Dose: 999 mls/hr Documented By: DONNA Imaging Data Radiologist's Impression: Chest X-Ray 10/31/24 20:34 Exam(s): XR CXR 1 VIEW EXAM: XR Chest, 1 View CLINICAL HISTORY: Reason for exam: cold symptoms. TECHNIQUE: Frontal view of the chest. COMPARISON: December 31, 2023 FINDINGS: Lungs: Unremarkable. No consolidation. Pleural space: Unremarkable. No pneumothorax. Heart: See below. Mediastinum: Unremarkable. Normal mediastinal contour. Bones/joints: Mild to moderate degenerative changes in the spine. No acute fracture. Vasculature: The aortic arch is mildly calcified. Tubes, lines and devices: There is a pacing device on the left with leads running to the right side of the heart. The cardiac silhouette is borderline enlarged. Previous ASD closure or atrial appendage plugging is noted, unchanged. Upper abdomen: There is no pneumoperitoneum under the diaphragm. IMPRESSION: There is a pacing device on the left with leads running to the right side of the heart. The cardiac silhouette is borderline enlarged. Previous ASD closure or atrial appendage plugging is noted, unchanged. No acute infiltrates. Electronically signed by: Timi Goodwin MD 10/31/24 23:[address] 10/31/24 21:33 Exam(s): CT HEAD Without Contrast EXAM: CT Head Without Intravenous Contrast CLINICAL HISTORY: Reason for exam: ams. TECHNIQUE: Axial computed tomography images of the head/brain without intravenous contrast. CTDI is 38.43 mGy and DLP is 546.36 mGy-cm. Automated exposure control was utilized for the study. A dose lowering technique was utilized adhering to the principles of ALARA. COMPARISON: December 27, 2023 FINDINGS: Brain: Mild cerebral atrophy and periventricular white matter low density consistent with chronic small vessel disease and/or senescent changes, unchanged. No acute large vessel infarct or intracranial hemorrhage is seen. Ventricles: Unremarkable. No ventriculomegaly. Bones/joints: Unremarkable. No acute fracture. Soft tissues: Unremarkable. Sinuses: Unremarkable as visualized. No acute sinusitis. Mastoid air cells: Unremarkable as visualized. No mastoid effusion. IMPRESSION: Mild cerebral atrophy and periventricular white matter low density consistent with chronic small vessel disease and/or senescent changes, unchanged. No acute large vessel infarct or intracranial hemorrhage is seen. Electronically signed by: Timi Goodwin MD 11/01/24 00:07 AM Abdomen/Pelvis CT 10/31/24 22:30 Exam(s): CT ABDOMEN + PELVIS Without Contrast EXAM: CT Abdomen and Pelvis Without Intravenous Contrast CLINICAL HISTORY: Reason for exam: abdominal pain, UTI. TECHNIQUE: Axial computed tomography images of the abdomen and pelvis without intravenous contrast. CTDI is 20.24 mGy and DLP is 926.79 mGy-cm. Automated exposure control was utilized for the study. A dose lowering technique was utilized adhering to the principles of ALARA. COMPARISON: No relevant prior studies available. FINDINGS: Lung bases: Unremarkable. No mass. No consolidation. ABDOMEN: Liver: Unremarkable. Gallbladder and bile ducts: Unremarkable. No calcified stones. No ductal dilation. Pancreas: Unremarkable. No ductal dilation. Spleen: Unremarkable. No splenomegaly. Adrenals: Unremarkable. No mass. Kidneys and ureters: Slight perinephric straining involving both kidneys can be seen in renal insufficiency. No hydronephrosis or ureterolithiasis is seen. 2.6 cm simple cyst in the right kidney. No follow-up is required. Stomach and bowel: 8 cm of stool in the cecum suggest constipation. No other dilated bowel loops are identified. The appendix is normal. No acute inflammatory changes are seen involving the bowel. No mucosal thickening. PELVIS: Appendix: See above. Bladder: Trace amount of gas within the urinary bladder consistent with history of UTI. No thickening or surrounding inflammation is seen. Incidental note is made of an 8 mm calcification in or adjacent to the wall of the right side of the urinary bladder. No stones. Reproductive: Unremarkable as visualized. ABDOMEN and PELVIS: Intraperitoneal space: The uterus is absent. No free fluid in the pelvis. No free air. Bones/joints: Moderate multilevel degenerative changes are seen throughout the spine including 25 scoliosis. No acute fracture or traumatic subluxation is seen. Soft tissues: Unremarkable. Vasculature: The abdominal aorta is mildly calcified but nondilated. Lymph nodes: Unremarkable. No enlarged lymph nodes. IMPRESSION: 1. 8 cm of stool in the cecum suggest constipation. No other dilated bowel loops are identified. The appendix is normal. No acute inflammatory changes are seen involving the bowel. 2. Slight perinephric straining involving both kidneys can be seen in renal insufficiency. No hydronephrosis or ureterolithiasis is seen. Electronically signed by: Timi Goodwin MD 11/01/24 00:11 AM Discharge Plan Visit Data Chief Complaint: Hyperglycemia Stated Complaint: HIGH SUGAR EXTREMLEY HIGH, CONFUSION, HEADACHE ED Provider: Albert Duran Discharge Problem: Acute UTI, Leukocytosis, Elevated troponin, Hyperglycemia, AMS (altered mental status) Patient Disposition: Admitted As Inpatient Discharge Instructions Interventions: ED Discharge Assessment Last Done: 11/01/24 00:39 Discharge Problem: Leukocytosis Qualifiers: Leukocytosis type: unspecified Qualified Code(s): D72.829 - Elevated white blood cell count, unspecified AMS (altered mental status) Qualifiers: Altered mental status type: unspecified Qualified Code(s): R41.82 - Altered mental status, unspecified
[2024-10-31 21:40] LABS: Adenovirus PCR Not Detected (NotDetected); Bordetella parapertussis PCR Not Detected (NotDetected); Bordetella pertussis PCR Not Detected (NotDetected); Chlamydia pneumoniae PCR Not Detected (NotDetected); Coronavirus 229E PCR Not Detected (NotDetected); Coronavirus CoV-2 (COVID19)PCR Not Detected (NotDetected); Coronavirus HKU1 PCR Not Detected (NotDetected); Coronavirus NL63 PCR Not Detected (NotDetected); Coronavirus OC43PCR Not Detected (NotDetected); Human Metapneumovirus PCR Not Detected (NotDetected); Influenza A PCR Not Detected (NotDetected); Influenza B PCR Not Detected (NotDetected); Mycoplasma pneumoniae PCR Not Detected (NotDetected); Parainfluenza Virus 1 PCR Not Detected (NotDetected); Parainfluenza Virus 2 PCR Not Detected (NotDetected); Parainfluenza Virus 3 PCR Not Detected (NotDetected); Parainfluenza Virus 4 PCR Not Detected (NotDetected); Respiratory Syncytial VirusPCR Not Detected (NotDetected); Rhinovirus/Enterovirus PCR Not Detected (NotDetected)
[2024-10-31 21:48] LABS: Albumin Globulin Ratio 1.1 (0.9-2); Albumin Level 3.6 gm/dl (3.4-5.0); BUN Creatinine Ratio 29.5 (10-20); Bilirubin,Total 0.4 mg/dl (0.2-1.0); Calcium 9.5 mg/dl (8.6-10.3); Globulin 3.3 gm/dl (2.5-4.0); Potassium 4.1 mmol/L (3.5-5.1); Total Protein 6.9 gm/dl (6.0-8.3); Troponin I High Sensitivity 52.3 pg/ml (0-14)
[2024-10-31] MEDS: cefTRIAXone SODIUM 2,000 MG/50 ML BAG IV STA (22:15)
[2024-10-31] MEDS: SODIUM CHLORIDE 0.9% 1,000 ML IV ONE (22:15)
--- NOTE | 2024-10-31 22:47 | History & Physical Report ---
Date of Service October 31, 2024 Assessment & Plan (1) AMS (altered mental status): (2) Hyperglycemia due to type 2 diabetes mellitus: (3) Acute UTI: (4) PAF (paroxysmal atrial fibrillation): (5) Elevated troponin: (6) Acute kidney injury: Plan The patient is a 84-year-old female with a past medical history including dementia, CKD stage IIIb, PAF, status post Watchman procedure, SSS, hypertension, overactive bladder, CVA, and diabetes mellitus type 2.The patient presents to the emergency department, with her son present at bedside, who provides most of her history and ROS. He reports that he had seen her around 5:00 PM earlier today, and noted she was confused, and that her blood sugar recording monitor was reading as high. She was also having headache, but having no other symptomatology. He brought her to the emergency department, where she was found to have a glucose 366, and elevated troponin at 52.3, and increased creatinine to 1.73. Urinalysis was suggestive of urinary tract infection, and patient was referred for evaluation for admission to the [facility]. #Change in mental status with confusion- Multiple etiologies including not limited to: UTI, acute kidney injury, hyperglycemia, progression of underlying dementia, medication side effect Of note, BioFire testing negative #Urinary tract infection- Follow urine culture and sensitivity Continue ceftriaxone 2 g IV daily begun in the ED #Acute kidney injury- Creatinine 1.73, with base 0.84 Status post 1 L normal saline bolus in ED Continue NSS at 80 mL/h x 1 L, recheck laboratories in the a.m. #Hyperglycemia in diabetes mellitus- Glucose 366 on admission Holding Jardiance, glimepiride, Mounjaro Placed on Accu-Cheks with NovoLog SSI as noted #Elevated troponin/PAF/sick sinus syndrome/hypertension/status post pacer- Troponin 52.3 on admission, with follow-up pending Likely supply/demand mismatch History of Present Illness Chief Complaint: The patient presents to the emergency department, with her son present at bedside, who provides most of her history and ROS. He reports that he had seen her around 5:00 PM earlier today, and noted she was confused, and that her blood sugar recording monitor was reading as high. She was also having headache, but having no other symptomatology. He brought her to the emergency department, where she was found to have a glucose 366, and elevated troponin at 52.3, and increased creatinine to 1.73. Urinalysis was suggestive of urinary tract infection, and patient was referred for evaluation for admission to the [facility]. Primary Care Provider: NO PCP The patient is a 84-year-old female with a past medical history including dementia, CKD stage IIIb, PAF, SSS, hypertension, overactive bladder, CVA, and diabetes mellitus type 2.The patient presents to the emergency department, with her son present at bedside, who provides most of her history and ROS. He reports that he had seen her around 5:00 PM earlier today, and noted she was confused, and that her blood sugar recording monitor was reading as high. She was also having headache, but having no other symptomatology. He brought her to the emergency department, where she was found to have a glucose 366, and elevated troponin at 52.3, and increased creatinine to 1.73. Urinalysis was suggestive of urinary tract infection, and patient was referred for evaluation for admission to the [facility]. Allergies Allergy/AdvReac Type Severity Reaction Status Date / Time crab Allergy Rash Verified 12/27/23 20:39 meperidine [From Demerol] Allergy Rash Verified 12/27/23 20:39 Penicillins Allergy Rash Verified 12/27/23 20:39 Home Medications Medication Instructions Recorded Confirmed Type aspirin 81 mg tablet,delayed 81 mg PO DAILY 12/27/23 10/31/24 History release atorvastatin 40 mg tablet 40 mg PO DAILY 12/27/23 10/31/24 History donepezil 10 mg tablet 10 mg PO HS 12/27/23 10/31/24 History empagliflozin 10 mg tablet 10 mg PO QAM 12/27/23 10/31/24 History (Jardiance) ipratropium bromide 21 mcg (0.03 2 spray intranasal Q12 12/27/23 11/01/24 History %) nasal spray memantine 10 mg tablet 10 mg PO BID 12/27/23 11/01/24 History vuvddngh-ufg-jyada acid 0.4 1 tab PO DAILY 12/27/23 10/31/24 History mg-lycopene 300 mcg-lutein 250 mcg tablet (Centrum Silver) omega-3 fatty acids 1,000 mg 1,000 mg PO BID 12/27/23 10/31/24 History capsule solifenacin 5 mg tablet 5 mg PO DAILY 12/27/23 10/31/24 History tirzepatide 5 mg/0.5 mL 5 mg subcut .Q7DAYS 12/27/23 10/31/24 History subcutaneous pen injector (Mounjaro) cholecalciferol (vitamin D3) 25 25 mcg PO DAILY #1 tab 12/31/23 10/31/24 Rx mcg (1,000 unit) tablet (Vitamin D3) blood sugar diagnostic (OneTouch #100 ea 01/01/24 11/01/24 Rx Verio test strips) lancets #100 ea 01/01/24 11/01/24 Rx gabapentin 100 mg capsule 200 mg PO QAM 10/31/24 10/31/24 History gabapentin 100 mg capsule 300 mg PO QPM 10/31/24 10/31/24 History ibuprofen 600 mg tablet (IBU) 600 mg PO BID 10/31/24 10/31/24 History mirabegron 50 mg tablet,extended 50 mg PO DAILY 10/31/24 10/31/24 History release 24 hr trazodone 50 mg tablet 50 mg PO HS 10/31/24 10/31/24 History Past Med/Surg History Problem List (Updated 11/01/24 @ 03:51 by Anthony Villareal MD) Acute kidney injury Hyperglycemia due to type 2 diabetes mellitus AMS (altered mental status) (Acute) Hyperglycemia (Acute) Elevated troponin (Acute) Leukocytosis (Acute) Acute UTI (Acute) Dementia CKD stage 3b, GFR 30-44 ml/min PAF (paroxysmal atrial fibrillation) SSS (sick sinus syndrome) Heart murmur HBP (high blood pressure) Bradycardia Overactive bladder Insomnia Heart palpitations (Acute) Intermittent lightheadedness (Acute) CVA (cerebral vascular accident) DM2 (diabetes mellitus, type 2) Medical History Presence of Watchman left atrial appendage closure device DM2 (diabetes mellitus, type 2) CVA (cerebral vascular accident) Social History Smoking Status: Never smoker Hx Alcohol Use: Yes (occationally) Alcohol type: other Hx Substance Use: No Preferred Language: Welsh Communication Ability: Effective Paranormal Investigator Required: No Beliefs That Will Affect Care: None Current Living Situation: Alone Feels Safe at Home: Yes Assistive Devices: None Review of Systems Review of Systems: The patient denies chest pain, palpitations, cough, lower extremity swelling, sore throat, fevers, chills, sweats, nausea, vomiting, diarrhea , constipation, abdominal pain, pelvic pain, blood in urine or stool, dysuria, urinary frequency or urgency, lightheadedness, dizziness, loss of consciousness, rash, abnormal bruising or bleeding, focal weakness, numbness or tingling in arms or legs, generalized arthralgias or myalgias, back or neck pain, or night sweats. The review of systems is otherwise negative other than for that already noted above, and at least 10 systems have been reviewed. Physical Exam Physical Exam: The patient is awake, alert and oriented 3, well developed and well nourished, normocephalic and atraumatic, lying in bed and in no acute distress. HEENT--PERRL, EOMI, mucous membranes and oropharynx mildly dry. Neck--supple. No JVD. No bruits. Thyroid normal, trachea midline, no adenopathy. Heart--normal S1 and S2. No murmurs, rubs or gallops. Lungs--clear bilaterally, no respiratory distress, no accessory muscle use. Abdomen--normal bowel sounds and soft. Nontender. Nondistended, no hernias or masses, no organomegaly. Extremities--no cyanosis or clubbing. No edema. There are good distal pulses b/l. Dermatologic--normal skin turgor, normal color, no abnormal lymph nodes, no rash. Neurologic--cranial nerves II through XII grossly intact. Rheumatologic--normal range of motion. Psychiatric--normal affect. Results & Data Results & Data Vital Signs (Past 12 Hours) Vital Signs Temp Pulse Pulse Resp BP BP Pulse Ox 10/31/24 22:13 93 H 10/31/24 22:10 89 21 163/85 H 96 10/31/24 20:28 36.4 C L 90 18 167/76 H 97 O2 Del Method 10/31/24 22:13 10/31/24 22:10 Room Air 10/31/24 20:28 Room Air Laboratory Results Laboratory Results WBC 12.22 K/ul (4.8-10.8) H 10/31/24 20:44 RBC 4.81 M/uL (4.20-5.40) 10/31/24 20:44 Hgb 14.6 g/dl (12.0-16.0) 10/31/24 20:44 Hct 44.9 % (37.0-47.0) 10/31/24 20:44 MCV 93.3 fL (80.0-100.0) 10/31/24 20:44 MCH 30.4 pg (25.0-34.0) 10/31/24 20:44 MCHC 32.5 g/dL (32.0-36.0) 10/31/24 20:44 RDW Std Deviation 47.8 fL (36.4-46.3) H 10/31/24 20:44 RDW Coeff of [place] 13.8 % (11.5-14.5) 10/31/24 20:44 Plt Count 149 K/uL (130-400) 10/31/24 20:44 MPV 11.1 fL (9.4-12.4) 10/31/24 20:44 Immature Gran % (Auto) 0.5 % 10/31/24 20:44 Neut % (Auto) 85.4 % 10/31/24 20:44 Lymph % (Auto) 7.3 % 10/31/24 20:44 [place] % (Auto) 6.7 % 10/31/24 20:44 Eos % (Auto) 0.0 % 10/31/24 20:44 Baso % (Auto) 0.1 % 10/31/24 20:44 Neut # (Auto) 10.44 K/uL (1.40-6.50) H 10/31/24 20:44 Lymph # (Auto) 0.89 K/uL (1.20-3.40) L 10/31/24 20:44 [place] # (Auto) 0.82 K/uL (0.11-0.59) H 10/31/24 20:44 Eos # (Auto) 0.00 K/uL (0.00-0.50) 10/31/24 20:44 Baso # (Auto) 0.01 K/uL (0.00-0.20) 10/31/24 20:44 Immature Gran # (Auto) 0.06 K/uL (0.01-0.20) 10/31/24 20:44 Sodium 138 mmol/L (136-145) 10/31/24 20:44 Potassium 4.1 mmol/L (3.5-5.1) 10/31/24 20:44 Chloride 106 mmol/L (98-107) 10/31/24 20:44 Carbon Dioxide 22 mmol/L (21-32) 10/31/24 20:44 Anion Gap 10 (3-11) 10/31/24 20:44 BUN 51 mg/dl (6-23) H 10/31/24 20:44 Creatinine 1.73 mg/dl (0.6-1.2) H 10/31/24 20:44 Est Cr Clr Drug Dosing 18.0 ml/min 10/31/24 20:44 eGFR 28.60 10/31/24 20:44 BUN/Creatinine Ratio 29.5 (10-20) H 10/31/24 20:44 Glucose 366 mg/dl (70-99(Fasting)) H* 10/31/24 20:44 POC Glucose 248 mg/dl (70-99) H 11/01/24 01:45 Calcium 9.5 mg/dl (8.6-10.3) 10/31/24 20:44 Total Bilirubin 0.4 mg/dl (0.2-1.0) 10/31/24 20:44 AST 27 U/L (13-39) 10/31/24 20:44 ALT 26 U/L (7-52) 10/31/24 20:44 Alkaline Phosphatase 106 U/L (34-104) H 10/31/24 20:44 Troponin I High Sens 52.3 pg/ml (0-14) H* 10/31/24 20:44 Total Protein 6.9 gm/dl (6.0-8.3) 10/31/24 20:44 Albumin 3.6 gm/dl (3.4-5.0) 10/31/24 20:44 Globulin 3.3 gm/dl (2.5-4.0) 10/31/24 20:44 Albumin/Globulin Ratio 1.1 (0.9-2) 10/31/24 20:44 Urine Color Yellow 10/31/24 20:35 Urine Appearance Cloudy (Clear) A 10/31/24 20:35 Urine pH 5.5 (4.5-7.5) 10/31/24 20:35 Ur Specific [place] 1.029 (1.000-1.030) 10/31/24 20:35 Urine Protein 1+ (Negative) H 10/31/24 20:35 Urine Glucose (UA) 3+ (Negative) H 10/31/24 20:35 Urine Ketones Negative (Negative) 10/31/24: Urine Blood 2+ (Negative) H 10/31/24:35 Urine Nitrite Negative (Negative) 10/31/24 20:35 Urine Bilirubin Negative (Negative) 10/31/24 20:35 Urine Urobilinogen Negative (Negative) 10/31/24 20:35 Ur Leukocyte Esterase 2+ (Negative) H 10/31/24 20:35 Urine WBC (Auto) >50 /hpf (0-5) H 10/31/24 20:35 Urine RBC (Auto) 11-20 /hpf (0-2) H 10/31/24:35 U Hyaline Cast (Auto) 3-5 /lpf (0-2) H 10/31/24 20:35 U Epithel Cells (Auto) 0-2 /hpf (0-2) 10/31/24 20:35 Urine Bacteria (Auto) 4+ (None Seen) H 10/31/24 20:35 Adenovirus (PCR) Not Detected (NotDetected) 10/31/24 20:30 B. pertussis DNA (PCR) Not Detected (NotDetected) 10/31/24 20:30 B.parapertussis DNA PCR Not Detected (NotDetected) 10/31/24 20:30 C. pneumoniae DNA (PCR) Not Detected (NotDetected) 10/31/24 20:30 Coronavirus OC43 (PCR) Not Detected (NotDetected) 10/31/24 20:30 Coronavirus HKU1 (PCR) Not Detected (NotDetected) 10/31/24 20: Coronavirus 229E (PCR) Not Detected (NotDetected) 10/31/24 20:30 SARS-CoV-2 (PCR) Not Detected (NotDetected) 10/31/24 20: Coronavirus NL63 (PCR) Not Detected (NotDetected) 10/31/24 20:30 Human Metapneumovir PCR Not Detected (NotDetected) 10/31/24 20:30 Influenza Type A (PCR) Not Detected (NotDetected) 10/31/24 20:30 Influenza Type B (PCR) Not Detected (NotDetected) 10/31/24 20:30 M. pneumoniae (PCR) Not Detected (NotDetected) 10/31/24 20:30 Parainfluenza 1 (PCR) Not Detected (NotDetected) 10/31/24 20:30 Parainfluenza 2 (PCR) Not Detected (NotDetected) 10/31/24 20:30 Parainfluenza 3 (PCR) Not Detected (NotDetected) 10/31/24 20:30 Parainfluenza 4 (PCR) Not Detected (NotDetected) 10/31/24 20:30 RSV (PCR) Not Detected (NotDetected) 10/31/24 20:30 Entero/Rhino (PCR) Not Detected (NotDetected) 10/31/24 20:30 Impressions Chest X-Ray 10/31/24 20:34 Exam(s): XR CXR 1 VIEW EXAM: XR Chest, 1 View CLINICAL HISTORY: Reason for exam: cold symptoms. TECHNIQUE: Frontal view of the chest. COMPARISON: December 31, 2023 FINDINGS: Lungs: Unremarkable. No consolidation. Pleural space: Unremarkable. No pneumothorax. Heart: See below. Mediastinum: Unremarkable. Normal mediastinal contour. Bones/joints: Mild to moderate degenerative changes in the spine. No acute fracture. Vasculature: The aortic arch is mildly calcified. Tubes, lines and devices: There is a pacing device on the left with leads running to the right side of the heart. The cardiac silhouette is borderline enlarged. Previous ASD closure or atrial appendage plugging is noted, unchanged. Upper abdomen: There is no pneumoperitoneum under the diaphragm. IMPRESSION: There is a pacing device on the left with leads running to the right side of the heart. The cardiac silhouette is borderline enlarged. Previous ASD closure or atrial appendage plugging is noted, unchanged. No acute infiltrates. Electronically signed by: Timi Goodwin MD 10/31/24 23:[address] 10/31/24 21:33 Exam(s): CT HEAD Without Contrast EXAM: CT Head Without Intravenous Contrast CLINICAL HISTORY: Reason for exam: ams. TECHNIQUE: Axial computed tomography images of the head/brain without intravenous contrast. CTDI is 38.43 mGy and DLP is 546.36 mGy-cm. Automated exposure control was utilized for the study. A dose lowering technique was utilized adhering to the principles of ALARA. COMPARISON: December 27, 2023 FINDINGS: Brain: Mild cerebral atrophy and periventricular white matter low density consistent with chronic small vessel disease and/or senescent changes, unchanged. No acute large vessel infarct or intracranial hemorrhage is seen. Ventricles: Unremarkable. No ventriculomegaly. Bones/joints: Unremarkable. No acute fracture. Soft tissues: Unremarkable. Sinuses: Unremarkable as visualized. No acute sinusitis. Mastoid air cells: Unremarkable as visualized. No mastoid effusion. IMPRESSION: Mild cerebral atrophy and periventricular white matter low density consistent with chronic small vessel disease and/or senescent changes, unchanged. No acute large vessel infarct or intracranial hemorrhage is seen. Electronically signed by: Timi Goodwin MD 11/01/24 00:07 AM Abdomen/Pelvis CT 10/31/24 22:30 Exam(s): CT ABDOMEN + PELVIS Without Contrast EXAM: CT Abdomen and Pelvis Without Intravenous Contrast CLINICAL HISTORY: Reason for exam: abdominal pain, UTI. TECHNIQUE: Axial computed tomography images of the abdomen and pelvis without intravenous contrast. CTDI is 20.24 mGy and DLP is 926.79 mGy-cm. Automated exposure control was utilized for the study. A dose lowering technique was utilized adhering to the principles of ALARA. COMPARISON: No relevant prior studies available. FINDINGS: Lung bases: Unremarkable. No mass. No consolidation. ABDOMEN: Liver: Unremarkable. Gallbladder and bile ducts: Unremarkable. No calcified stones. No ductal dilation. Pancreas: Unremarkable. No ductal dilation. Spleen: Unremarkable. No splenomegaly. Adrenals: Unremarkable. No mass. Kidneys and ureters: Slight perinephric straining involving both kidneys can be seen in renal insufficiency. No hydronephrosis or ureterolithiasis is seen. 2.6 cm simple cyst in the right kidney. No follow-up is required. Stomach and bowel: 8 cm of stool in the cecum suggest constipation. No other dilated bowel loops are identified. The appendix is normal. No acute inflammatory changes are seen involving the bowel. No mucosal thickening. PELVIS: Appendix: See above. Bladder: Trace amount of gas within the urinary bladder consistent with history of UTI. No thickening or surrounding inflammation is seen. Incidental note is made of an 8 mm calcification in or adjacent to the wall of the right side of the urinary bladder. No stones. Reproductive: Unremarkable as visualized. ABDOMEN and PELVIS: Intraperitoneal space: The uterus is absent. No free fluid in the pelvis. No free air. Bones/joints: Moderate multilevel degenerative changes are seen throughout the spine including 25 scoliosis. No acute fracture or traumatic subluxation is seen. Soft tissues: Unremarkable. Vasculature: The abdominal aorta is mildly calcified but nondilated. Lymph nodes: Unremarkable. No enlarged lymph nodes. IMPRESSION: 1. 8 cm of stool in the cecum suggest constipation. No other dilated bowel loops are identified. The appendix is normal. No acute inflammatory changes are seen involving the bowel. 2. Slight perinephric straining involving both kidneys can be seen in renal insufficiency. No hydronephrosis or ureterolithiasis is seen. Electronically signed by: Timi Goodwin MD 11/01/24 00:11 AM of Code Status & VTE Plan Code Status Full code VTE Prophylaxis Plan VTE Prophylaxis will be ordered: Yes PG Care Time/CCT Total # of Minutes Spent Total Time Spent with Patient: Total time spent is greater than 50% in coordination of care (as documented) at patient's floor/unit and/or counseling patient: Coding Level of Care Code 63573 INT INP/OBS CARE 3/75MIN Diagnoses AMS (altered mental status) R41.82 Altered mental status type: unspecified Hyperglycemia due to type 2 diabetes mellitus E11.65 Acute UTI N39.0 PAF (paroxysmal atrial fibrillation) I48.0 Elevated troponin R79.89 Acute kidney injury N17.9 (1) AMS (altered mental status) Altered mental status type: unspecified Qualified Code(s): R41.82 - Altered mental status, unspecified
--- NOTE | 2024-10-31 23:15 | XRay Report ---
Exam(s): XR CXR 1 VIEW EXAM: XR Chest, 1 View CLINICAL HISTORY: Reason for exam: cold symptoms. TECHNIQUE: Frontal view of the chest. COMPARISON: December 31, 2023 FINDINGS: Lungs: Unremarkable. No consolidation. Pleural space: Unremarkable. No pneumothorax. Heart: See below. Mediastinum: Unremarkable. Normal mediastinal contour. Bones/joints: Mild to moderate degenerative changes in the spine. No acute fracture. Vasculature: The aortic arch is mildly calcified. Tubes, lines and devices: There is a pacing device on the left with leads running to the right side of the heart. The cardiac silhouette is borderline enlarged. Previous ASD closure or atrial appendage plugging is noted, unchanged. Upper abdomen: There is no pneumoperitoneum under the diaphragm. IMPRESSION: There is a pacing device on the left with leads running to the right side of the heart. The cardiac silhouette is borderline enlarged. Previous ASD closure or atrial appendage plugging is noted, unchanged. No acute infiltrates. Electronically signed by: Timi Goodwin MD 10/31/24 23:14 PM
--- NOTE | 2024-11-01 00:08 | CT Scan Report ---
Exam(s): CT HEAD Without Contrast EXAM: CT Head Without Intravenous Contrast CLINICAL HISTORY: Reason for exam: ams. TECHNIQUE: Axial computed tomography images of the head/brain without intravenous contrast. CTDI is 38.43 mGy and DLP is 546.36 mGy-cm. Automated exposure control was utilized for the study. A dose lowering technique was utilized adhering to the principles of ALARA. COMPARISON: December 27, 2023 FINDINGS: Brain: Mild cerebral atrophy and periventricular white matter low density consistent with chronic small vessel disease and/or senescent changes, unchanged. No acute large vessel infarct or intracranial hemorrhage is seen. Ventricles: Unremarkable. No ventriculomegaly. Bones/joints: Unremarkable. No acute fracture. Soft tissues: Unremarkable. Sinuses: Unremarkable as visualized. No acute sinusitis. Mastoid air cells: Unremarkable as visualized. No mastoid effusion. IMPRESSION: Mild cerebral atrophy and periventricular white matter low density consistent with chronic small vessel disease and/or senescent changes, unchanged. No acute large vessel infarct or intracranial hemorrhage is seen. Electronically signed by: Timi Goodwin MD 11/01/24 00:07 AM
--- NOTE | 2024-11-01 00:12 | CT Scan Report ---
Exam(s): CT ABDOMEN + PELVIS Without Contrast EXAM: CT Abdomen and Pelvis Without Intravenous Contrast CLINICAL HISTORY: Reason for exam: abdominal pain, UTI. TECHNIQUE: Axial computed tomography images of the abdomen and pelvis without intravenous contrast. CTDI is 20.24 mGy and DLP is 926.79 mGy-cm. Automated exposure control was utilized for the study. A dose lowering technique was utilized adhering to the principles of ALARA. COMPARISON: No relevant prior studies available. FINDINGS: Lung bases: Unremarkable. No mass. No consolidation. ABDOMEN: Liver: Unremarkable. Gallbladder and bile ducts: Unremarkable. No calcified stones. No ductal dilation. Pancreas: Unremarkable. No ductal dilation. Spleen: Unremarkable. No splenomegaly. Adrenals: Unremarkable. No mass. Kidneys and ureters: Slight perinephric straining involving both kidneys can be seen in renal insufficiency. No hydronephrosis or ureterolithiasis is seen. 2.6 cm simple cyst in the right kidney. No follow-up is required. Stomach and bowel: 8 cm of stool in the cecum suggest constipation. No other dilated bowel loops are identified. The appendix is normal. No acute inflammatory changes are seen involving the bowel. No mucosal thickening. PELVIS: Appendix: See above. Bladder: Trace amount of gas within the urinary bladder consistent with history of UTI. No thickening or surrounding inflammation is seen. Incidental note is made of an 8 mm calcification in or adjacent to the wall of the right side of the urinary bladder. No stones. Reproductive: Unremarkable as visualized. ABDOMEN and PELVIS: Intraperitoneal space: The uterus is absent. No free fluid in the pelvis. No free air. Bones/joints: Moderate multilevel degenerative changes are seen throughout the spine including 25 scoliosis. No acute fracture or traumatic subluxation is seen. Soft tissues: Unremarkable. Vasculature: The abdominal aorta is mildly calcified but nondilated. Lymph nodes: Unremarkable. No enlarged lymph nodes. IMPRESSION: 1. 8 cm of stool in the cecum suggest constipation. No other dilated bowel loops are identified. The appendix is normal. No acute inflammatory changes are seen involving the bowel. 2. Slight perinephric straining involving both kidneys can be seen in renal insufficiency. No hydronephrosis or ureterolithiasis is seen. Electronically signed by: Timi Goodwin MD 11/01/24 00:11 AM
[2024-11-01] MEDS ORDERED: ACETAMINOPHEN 325 MG TAB PO PRN (00:39)
[2024-11-01] MEDS ORDERED: CARBOHYDRATES FOR HYPOGLYCEMIA PO PRN (00:39)
[2024-11-01] MEDS ORDERED: GLUCAGON FOR INJ 1 MG VIAL SQ PRN (00:39)
[2024-11-01] MEDS ORDERED: GLUCOSE 10 TAB/TUBE PO PRN (00:39)
[2024-11-01] MEDS ORDERED: DEXTROSE 50% 50 ML SYRINGE IV PRN (00:39)
[2024-11-01] MEDS ORDERED: GLUCOSE 40% GEL 15 GM TUBE PO PRN (00:39)
[2024-11-01] MEDS: INSULIN ASPART PER UNIT CHARGE SC SCH (01:50)
[2024-11-01] MEDS: SODIUM CHLORIDE 0.9% 1,000 ML IV SCH ×2 (01:50→17:31)
[2024-11-01 04:47] LABS: Basophils # (auto) 0.02 K/uL (0.00-0.20); Basophils % (auto) 0.2 %; Eosinophils # (auto) 0.01 K/uL (0.00-0.50); Eosinophils % (auto) 0.1 %; Hemoglobin 12.4 g/dl (12.0-16.0); Immature Granulocytes # (auto) 0.06 K/uL (0.01-0.20); Immature Granulocytes % (auto) 0.5 %; Lymphocytes # (auto) 0.95 K/uL (1.20-3.40); Lymphocytes % (auto) 7.3 %; Mean Corpuscular Hemoglobin 30.5 pg (25.0-34.0); Mean Corpuscular Hgb Conc 32.6 g/dL (32.0-36.0); Mean Corpuscular Volume 93.4 fL (80.0-100.0); Mean Platelet Volume 10.8 fL (9.4-12.4); Monocytes # (auto) 1.43 K/uL (0.11-0.59); Neutrophils # (auto) 10.56 K/uL (1.40-6.50); Neutrophils % (auto) 80.9 %; Platelet Count 130 K/uL (130-400); RDW Coefficient of Variation 13.9 % (11.5-14.5); RDW Standard Deviation 47.6 fL (36.4-46.3); Red Blood Count 4.07 M/uL (4.20-5.40); White Blood Count 13.03 K/ul (4.8-10.8)
[2024-11-01 04:50] LABS: Albumin Globulin Ratio 1.1 (0.9-2); Albumin Level 3.1 gm/dl (3.4-5.0); BUN Creatinine Ratio 35.6 (10-20); Bilirubin,Total 0.3 mg/dl (0.2-1.0); Calcium 8.9 mg/dl (8.6-10.3); Creatinine Clr Calc Pharmacy 21.3 ml/min; Globulin 2.7 gm/dl (2.5-4.0); Potassium 3.8 mmol/L (3.5-5.1); Total Protein 5.8 gm/dl (6.0-8.3)
[2024-11-01 04:55] LABS: Troponin I High Sensitivity 47.6 pg/ml (0-14)
[2024-11-01] MEDS: HEPARIN SOD 5,000 UNIT/0.5 ML VIAL SQ SCH (08:26)
[2024-11-01 08:50] LABS: Estimated Average Glucose 166 mg/dl; Hemoglobin A1C 7.4 % (4.5-5.6)
--- NOTE | 2024-11-01 09:20 | Hospitalist Progress Note ---
Date of Service November 01, 2024 Assessment & Plan (1) AMS (altered mental status): (2) Hyperglycemia due to type 2 diabetes mellitus: (3) Acute UTI: (4) PAF (paroxysmal atrial fibrillation): (5) Elevated troponin: (6) Acute kidney injury: Plan The patient is a 84-year-old female with a past medical history including dementia, CKD stage IIIb, PAF, status post Watchman procedure, SSS, hypertension, overactive bladder, CVA, and diabetes mellitus type 2.The patient presents to the emergency department, with her son present at bedside, who provides most of her history and ROS. He reports that he had seen her around 5:00 PM earlier today, and noted she was confused, and that her blood sugar recording monitor was reading as high. She was also having headache, but having no other symptomatology. He brought her to the emergency department, where she was found to have a glucose 366, and elevated troponin at 52.3, and increased creatinine to 1.73. Urinalysis was suggestive of urinary tract infection, and [facility] #Change in mental status with confusion- Multiple etiologies including not limited to: UTI, acute kidney injury, hyperglycemia, progression of underlying dementia, medication side effect Of note, BioFire testing negative #Urinary tract infection- Follow urine culture and sensitivity Continue ceftriaxone 2 g IV daily begun in the ED #Acute kidney injury- Creatinine 1.73, with base 0.84 Status post 1 L normal saline bolus in ED Continue NSS at 80 mL/h x 1 L, recheck laboratories in the a.m. #Hyperglycemia in diabetes mellitus- Glucose 366 on admission Holding Jardiance, glimepiride, Mounjaro Placed on Accu-Cheks with NovoLog SSI as noted #Elevated troponin/PAF/sick sinus syndrome/hypertension/status post pacer- Troponin 52.3 on admission, with follow-up pending Likely supply/demand mismatch Admission and Anticipated Discharge Date Admission Date: October 31, 2024 Results & Data Results & Data Vital Signs (Past 12 Hours) Vital Signs Temp Pulse Pulse Resp BP BP Pulse Ox 11/01/24 07:40 98.1 F 86 17 152/82 H 95 11/01/24 07:15 61 11/01/24 06:20 98.4 F 83 18 144/76 H 94 11/01/24 04:00 95 H 28 H 128/61 94 11/01/24 03:00 89 20 131/62 92 11/01/24 01:29 97 H 11/01/24 01:12 80 L 11/01/24 01:05 97 H 80 L 11/01/24 01:05 98 H 28 H 141/94 H 80 L 10/31/24 22:13 93 H 10/31/24 22:10 89 21 163/85 H 96 O2 Del Method O2 Flow Rate 11/01/24 07:40 Room Air 11/01/24 07:15 11/01/24 06:20 Room Air 11/01/24 04:00 Room Air 11/01/24 03:00 Room Air 11/01/24 01:29 11/01/24 01:12 Room Air, Nasal Cannula 0 11/01/24 01:05 Room Air 11/01/24 01:05 Room Air 10/31/24 22:13 10/31/24 22:10 Room Air PG Care Time/CCT Total # of Minutes Spent Total Time Spent with Patient: Total time spent is greater than 50% in coordination of care (as documented) at patient's floor/unit and/or counseling patient: Coding Diagnoses AMS (altered mental status) R41.82 Altered mental status type: unspecified Hyperglycemia due to type 2 diabetes mellitus E11.65 Acute UTI N39.0 PAF (paroxysmal atrial fibrillation) I48.0 Elevated troponin R79.89 Acute kidney injury N17.9 (1) AMS (altered mental status) Altered mental status type: unspecified Qualified Code(s): R41.82 - Altered mental status, unspecified
[2024-11-01] MEDS: GABAPENTIN 100 MG CAP PO SCH ×2 (10:14→21:28)
[2024-11-01] MEDS: MEMANTINE HCL 10 MG TAB PO SCH (10:14)
[2024-11-01] MEDS: CHOLECALCIFEROL 25 MCG (1000 UNITS) TAB PO SCH (10:14)
[2024-11-01] MEDS: ASPIRIN 81 MG ECTAB PO SCH (10:14)
[2024-11-01] MEDS: ATORVASTATIN 40 MG TAB PO SCH (10:16)
--- NOTE | 2024-11-01 12:57 | Hospitalist Progress Note ---
Date of Service November 01, 2024 Assessment & Plan (1) Metabolic encephalopathy: (2) Acute UTI: (3) Acute kidney injury: (4) Uncontrolled type 2 diabetes mellitus with hyperglycemia: (5) Constipation: (6) Elevated troponin: (7) PAF (paroxysmal atrial fibrillation): Plan The patient is a 84-year-old female with a past medical history including dementia, CKD stage IIIb, PAF, status post Watchman procedure, SSS, hypertension, overactive bladder, CVA, and diabetes mellitus type 2 who presented to ED with son on 10/31/24 with confusion. Patient was admitted to hospitalist service with AMS, RADHA, UTI, Hyperglycemia, and elevated troponin. Metabolic Encephalopathy - resolving - likely due to UTI, hyperglycemia RADHA - creatine 1.73 on admission from baseline of 0.84 - creatinine improved to 1.46 - continue NSS 800mL/hour UTI - UA positive for infection. Culture showing multiple organisms, repeat UA - Continue ceftriaxone 2g IV daily Uncontrolled type II Diabetes Mellitus with Hyperglycemia - glucose 366 on admission - a1c 7.4 - agree with pharmacy recommendation for one time dose of lantus 5 units - continue novolog with carb coverage of 10. - continue to monitor blood glucose levels Constipation - miralax ordered Elevated troponin - likely secondary to supply/demand - trending down - normal ECG Admission and Anticipated Discharge Date Admission Date: October 31, 2024 Subjective Patient states she is feeling well today and has no complaints/concerns. She was interviewed by herself, son is not here today. She states son will likely be here tomorrow. She does live at home by herself. She reports urinary incontinence, which is chronic, otherwise no dysuria, hematuria, increased urinary frequency, headache, malaise, fevers/chills, dizziness, chest pain, sob, abdominal pain, N/V/D/C, numbness/tingling, weakness. She reports last BM was 3- 4 days ago. Review of Systems Review of Systems: as noted in subjective Physical Exam Physical Exam: Pleasant and cooperative, resting comfortably in bed. Respiratory: CTA bilaterally without wheezes, rales, rhochi. Cardiovascular: (+) systolic murmur. Normal rate and rhy thm. Gastrointestinal (Abdomen): Normoactive bowel sounds in all 4 quadrants. Nontender to palpation. No CVA tenderness. Skin: No edema noted. Psychiatric: A&O x3. Normal mood/affect. Results & Data Results & Data Vital Signs (Past 12 Hours) Vital Signs Temp Pulse Pulse Resp BP BP Pulse Ox 11/01/24 10:58 11/01/24 10:53 36.8 C 74 17 166/84 H 96 11/01/24 07:40 36.7 C 86 17 152/82 H 95 11/01/24 07:15 61 11/01/24 06:20 36.9 C 83 18 144/76 H 94 11/01/24 04:00 95 H 28 H 128/61 94 11/01/24 03:00 89 20 131/62 92 11/01/24 01:29 97 H 11/01/24 01:12 80 L 11/01/24 01:05 97 H 80 L 11/01/24 01:05 98 H 28 H 141/94 H 80 L O2 Del Method O2 Flow Rate 11/01/24 10:58 Room Air 11/01/24 10:53 Room Air 11/01/24 07:40 Room Air 11/01/24 07:15 11/01/24 06:20 Room Air 11/01/24 04:00 Room Air 11/01/24 03:00 Room Air 11/01/24 01:29 11/01/24 01:12 Room Air, Nasal Cannula 0 11/01/24 01:05 Room Air 11/01/24 01:05 Room Air Laboratory Results Labs reviewed. Leukocytosis present. WBC increased from 12.22 to 13.03 Creatinine improved. 1.46 today from 1.73 Troponin trending down. 47.6 today from 52.3. A1C is 7.4 Urine culture showing multiple organisms. Diagnostic Findings Reviewed. ECG (11/01/24) NSR Chest xray (10/31/24) showing no acute infiltrates, pacing device and previous asd closure or atrial appendage plugging is noted, unchanged. Cardiac silhouette borderline enlarged. CT head (10/31/24) with mild cerebral atrophy and chronic small vessel changes, no acute infarct or hemorrhage CT abdomen/pelvis (10/31/24) showing 8 cm stool in cecum and slight perinephric straining both kidneys. . ECG Additional Comments: NSR. PG Care Time/CCT Total # of Minutes Spent Total Time Spent with Patient: Total time spent is greater than 50% in coordination of care (as documented) at patient's floor/unit and/or counseling patient: Coding Level of Care Code None Diagnoses Metabolic encephalopathy G93.41 Acute UTI N39.0 Acute kidney injury N17.9 Uncontrolled type 2 diabetes mellitus with hyperglycemia E11.65 Constipation K59.00 Elevated troponin R79.89 PAF (paroxysmal atrial fibrillation) I48.0
[2024-11-01] MEDS: LANTUS PER UNIT CHARGE SC ONE (13:37)
--- NOTE | 2024-11-01 15:34 | Electrocardiogram Report ---
Test Reason : Blood Pressure : */* mmHG Vent. Rate : 93 BPM Atrial Rate : 93 BPM P-R Int : 184 ms QRS Dur : 86 ms QT Int : 318 ms P-R-T Axes : 69 5 52 degrees QTcB Int : 395 ms Normal sinus rhythm Cannot rule out Inferior infarct , age undetermined Cannot rule out Anterior infarct , age undetermined Abnormal ECG When compared with ECG of 30-Dec-2023 17:04, Sinus rhythm has replaced Electronic atrial pacemaker Vent. rate has increased by 33 bpm Minimal criteria for Anterior infarct are now Present Confirmed by Arsenio Anderson ([id number]) on 11/01/2024 3:34:49 PM Referred By: REFERRED SELF Confirmed By: Arsenio Anderson
--- NOTE | 2024-11-01 15:38 | Electrocardiogram Report ---
Test Reason : Blood Pressure : */* mmHG Vent. Rate : 86 BPM Atrial Rate : 86 BPM P-R Int : 190 ms QRS Dur : 88 ms QT Int : 330 ms P-R-T Axes : 39 9 40 degrees QTcB Int : 394 ms Normal sinus rhythm Normal ECG When compared with ECG of 31-Oct-2024 20:39, (unconfirmed) Minimal criteria for Anterior infarct are no longer Present No significant change was found Confirmed by Arsenio Anderson ([id number]) on 11/01/2024 3:37:54 PM Referred By: REFERRED SELF Confirmed By: Arsenio Anderson
--- NOTE | 2024-11-01 18:48 | Billing Data ---
Date of Service November 01, 2024 Coding Level of Care Code 10011 SUB INP/OBS CARE MIN
[2024-11-01] MEDS: DONEPEZIL HCL 10 MG TAB PO SCH (21:28)
[2024-11-01] MEDS: traZODone HCL 50 MG TAB PO SCH (21:28)
[2024-11-01] MEDS: cefTRIAXone SODIUM 2,000 MG/50 ML BAG IV SCH (21:29)
[2024-11-02 00:18] LABS: Appearance Urine Cloudy (Clear); Bacteria Urine Automated None Seen (None Seen); Bilirubin Urine Negative (Negative); Blood Urine 2+ (Negative); Color Urine Yellow; Epithelial Cell Urine Auto 0-2 /hpf (0-2); Glucose Urine UA 3+ (Negative); Ketones Urine Trace (Negative); Leukocyte Esterase Urine 1+ (Negative); Nitrite Urine Negative (Negative); Protein Urine 1+ (Negative); Specific Gravity Urine 1.023 (1.000-1.030); Urobilinogen Urine Negative (Negative); WBC Urine Automated >50 /hpf (0-5); pH Urine 5.5 (4.5-7.5)
[2024-11-02 06:56] LABS: Basophils # (auto) 0.03 K/uL (0.00-0.20); Basophils % (auto) 0.3 %; Eosinophils # (auto) 0.08 K/uL (0.00-0.50); Eosinophils % (auto) 0.7 %; Hematocrit (blood only) 36.3 % (37.0-47.0); Immature Granulocytes # (auto) 0.07 K/uL (0.01-0.20); Immature Granulocytes % (auto) 0.6 %; Lymphocytes # (auto) 1.47 K/uL (1.20-3.40); Lymphocytes % (auto) 13.4 %; Mean Corpuscular Hemoglobin 30.5 pg (25.0-34.0); Mean Corpuscular Hgb Conc 33.1 g/dL (32.0-36.0); Mean Corpuscular Volume 92.1 fL (80.0-100.0); Mean Platelet Volume 10.5 fL (9.4-12.4); Monocytes # (auto) 1.23 K/uL (0.11-0.59); Monocytes % (auto) 11.2 %; Neutrophils # (auto) 8.13 K/uL (1.40-6.50); Neutrophils % (auto) 73.8 %; Platelet Count 131 K/uL (130-400); RDW Coefficient of Variation 14.2 % (11.5-14.5); RDW Standard Deviation 48.2 fL (36.4-46.3); Red Blood Count 3.94 M/uL (4.20-5.40); White Blood Count 11.01 K/ul (4.8-10.8)
[2024-11-02 07:12] LABS: Albumin Globulin Ratio 0.9 (0.9-2); Albumin Level 2.7 gm/dl (3.4-5.0); BUN Creatinine Ratio 41.3 (10-20); Bilirubin,Total 0.3 mg/dl (0.2-1.0); Calcium 8.2 mg/dl (8.6-10.3); Magnesium 1.9 mg/dl (1.7-2.4); Potassium 3.8 mmol/L (3.5-5.1); Total Protein 5.7 gm/dl (6.0-8.3)
--- NOTE | 2024-11-02 08:27 | Hospitalist Progress Note ---
Date of Service November 02, 2024 Assessment & Plan (1) Metabolic encephalopathy: (2) Acute UTI: (3) Acute kidney injury: (4) Uncontrolled type 2 diabetes mellitus with hyperglycemia: (5) Constipation: (6) Elevated troponin: (7) PAF (paroxysmal atrial fibrillation): Plan The patient is a 84-year-old female with a past medical history including dementia, CKD stage IIIb, PAF, status post Watchman procedure, SSS, hypertension, overactive bladder, CVA, and diabetes mellitus type 2 who presented to ED with son on 10/31/24 with confusion. Patient was admitted to hospitalist service with AMS, RADHA, UTI, Hyperglycemia, and elevated troponin. Metabolic Encephalopathy - resolving - likely due to UTI, hyperglycemia RADHA - creatine 1.73 on admission from baseline of 0.84 - creatinine improved to 1.04 Encourage p.o. intake UTI - Repeat UA positive but improved, culture pending - WBC count improved to 11.01 from 13.03 - Continue ceftriaxone 2g IV daily Uncontrolled type II Diabetes Mellitus with Hyperglycemia - glucose 366 on admission - a1c 7.4 - Glucose levels improved - continue novolog with carb coverage of 10. Constipation - miralax ordered Elevated troponin - likely secondary to supply/demand - trending down - normal ECG PT/OT evaluation prior to discharge. Discussed case with patient's family. Plan for early discharge tomorrow. Admission and Anticipated Discharge Date Admission Date: October 31, 2024 Supervising Physician Co-Signing Physician Notes Patient was seen and examined independently I discussed the case with Ursula MULTANI I reviewed pertinent past medical social family history and also the plan of care and agree with the plan of care. Patient met with a metabolic encephalopathy from UTI present on admission and uncontrolled diabetes. Feeling the uncontrolled diabetes is from the UTI. Patient fortunately had a poly microbial specimen which is likely contaminant but she did improve with antibiotic therapy Glucose control has been via insulin therapy and reeducation for dietary restriction PT OT consults pending patient likely to return home with assistive devices. Any exceptions will be noted below Subjective Patient reports that she is feeling well today, no complaints or concerns. Patient is being interviewed by herself, her son is not present currently. She states that she is eating and drinking well, has been ambulating to the bathroom with support. She reports that her last bowel movement was 4 to 5 days ago, was given MiraLAX yesterday. She denies any fatigue, weakness, fever/chills, dizziness, headache, chest pain, palpitations, shortness of breath, edema, nausea, vomiting, diarrhea, blood in stool or urine, dysuria, increased urinary frequency. She reports that she is ready to go home. She lives by herself, does have support from her son. Review of Systems Review of Systems: As noted in subjective. Physical Exam Physical Exam: Pleasant and cooperative. She is resting comfortably in chair. Respiratory: Clear to auscultation bilaterally without wheezes, rales, rhonchi Cardiovascular: Systolic murmur present. Normal rate and rhythm. Gastrointestinal (Abdomen): Normal active bowel sounds in all 4 quadrants. Abdomen nontender to palpation. No CVA tenderness bilaterally. Skin: No edema noted. Neurologic: A&O x 3. Normal speech. Cranial nerves grossly intact. Results & Data Results & Data Vital Signs (Past 12 Hours) Vital Signs Temp Pulse Pulse Resp BP Pulse Ox O2 Del Method 11/02/24 07:13 98.1 F 70 16 150/81 H 96 Room Air 11/02/24 02:59 98.6 F 80 17 144/44 H 96 Room Air 11/01/24 22:44 98.2 F 78 17 143/68 H 98 Room Air 11/01/24 22:26 85 Laboratory Results Labs reviewed. White blood cell count improving. Currently at 11.01 from 13.03 yesterday. BUN/creatinine improving. Creatinine currently 1.04 from 1.46 yesterday. Baseline is 0.84. BUN 43 today from 52 yesterday. Glucose is improving. Patient is ranging from 134 to high of 170 from 270 yesterday. Troponin has trended down to 36.7 from 52.3. Urinalysis was repeated. Urinalysis negative for nitrites and no bacteria seen. 1+ positive for leukocytes greater than 50 white blood cells 2+ blood. PG Care Time/CCT Total # of Minutes Spent Total Time Spent with Patient: Total time spent is greater than 50% in coordination of care (as documented) at patient's floor/unit and/or counseling patient: Coding Level of Care Code None Diagnoses Metabolic encephalopathy G93.41 Acute UTI N39.0 Acute kidney injury N17.9 Uncontrolled type 2 diabetes mellitus with hyperglycemia E11.65 Constipation K59.00 Elevated troponin R79.89 PAF (paroxysmal atrial fibrillation) I48.0
[2024-11-02] MEDS: POLYETHYLENE (MIRALAX) 17 GM PACK PO PRN (08:32)
--- NOTE | 2024-11-02 16:03 | Electrocardiogram Report ---
Test Reason : Blood Pressure : */* mmHG Vent. Rate : 78 BPM Atrial Rate : 78 BPM P-R Int : 186 ms QRS Dur : 82 ms QT Int : 342 ms P-R-T Axes : 9 13 60 degrees QTcB Int : 389 ms Normal sinus rhythm with sinus arrhythmia Low voltage QRS Borderline ECG When compared with ECG of 01-Nov-2024 05:32, No significant change was found Confirmed by Arsenio Anderson ([id number]) on 11/02/2024 4:02:48 PM Referred By: REFERRED SELF Confirmed By: Arsenio Anderson
--- NOTE | 2024-11-02 19:00 | Billing Data ---
Date of Service November 02, 2024 Coding Level of Care Code 19598 SUB INP/OBS CARE
[2024-11-03 06:09] LABS: Basophils # (auto) 0.02 K/uL (0.00-0.20); Basophils % (auto) 0.2 %; Eosinophils # (auto) 0.16 K/uL (0.00-0.50); Eosinophils % (auto) 1.5 %; Hematocrit (blood only) 36.1 % (37.0-47.0); Immature Granulocytes # (auto) 0.11 K/uL (0.01-0.20); Lymphocytes # (auto) 1.65 K/uL (1.20-3.40); Lymphocytes % (auto) 15.2 %; Mean Corpuscular Hemoglobin 30.3 pg (25.0-34.0); Mean Corpuscular Hgb Conc 33.2 g/dL (32.0-36.0); Mean Corpuscular Volume 91.2 fL (80.0-100.0); Mean Platelet Volume 10.6 fL (9.4-12.4); Monocytes # (auto) 1.22 K/uL (0.11-0.59); Monocytes % (auto) 11.2 %; Neutrophils # (auto) 7.69 K/uL (1.40-6.50); Neutrophils % (auto) 70.9 %; Platelet Count 154 K/uL (130-400); RDW Coefficient of Variation 14.3 % (11.5-14.5); RDW Standard Deviation 48.2 fL (36.4-46.3); Red Blood Count 3.96 M/uL (4.20-5.40); White Blood Count 10.85 K/ul (4.8-10.8)
[2024-11-03 06:19] LABS: Albumin Globulin Ratio 0.9 (0.9-2); Albumin Level 2.7 gm/dl (3.4-5.0); BUN Creatinine Ratio 34.5 (10-20); Bilirubin,Total 0.3 mg/dl (0.2-1.0); Calcium 8.3 mg/dl (8.6-10.3); Creatinine Clr Calc Pharmacy 27.6 ml/min; Globulin 2.9 gm/dl (2.5-4.0); Magnesium 1.9 mg/dl (1.7-2.4); Total Protein 5.6 gm/dl (6.0-8.3)
[2024-11-03 07:37] VITALS: RESP 18
[2024-11-03 12:30] VITALS: PULSE 76; TEMP 97.5; O2SAT 95
[2024-11-03 14:18] VITALS: BP 161/82
--- NOTE | 2024-11-03 15:09 | Discharge Summary ---
Discharge Summary Date of Service November 03, 2024 Principal Dx & Hospital Course #1 = Principal Diagnosis (1) Metabolic encephalopathy: (2) Acute UTI: (3) Acute kidney injury: (4) Uncontrolled type 2 diabetes mellitus with hyperglycemia: (5) Elevated troponin: (6) PAF (paroxysmal atrial fibrillation): (7) Constipation: Plan The patient is a 84-year-old female with a past medical history including dementia, CKD stage IIIb, PAF, status post Watchman procedure, SSS, hypertension, overactive bladder, CVA, and diabetes mellitus type 2 who presented to ED with son on 10/31/24 with confusion. Patient was admitted to hospitalist service with AMS, RADHA, UTI, Hyperglycemia, and elevated troponin. Metabolic Encephalopathy - resolved - likely due to UTI, hyperglycemia RADHA - creatine 1.73 on admission from baseline of 0.84 - creatinine currently at 1.13. UTI - Repeat UA positive but improved, urine culture pending - WBC count improved to 10.85 from 13.03 - Received IV ceftriaxone during admission - Discharge with Bactrim 1 tab PO BID x 5 days Uncontrolled type II Diabetes Mellitus with Hyperglycemia - glucose 366 on admission - a1c 7.4 - Glucose levels improved - hold Jardiance until evaluated by PCP due to RADHA - discharge on home med - monjouro Elevated troponin/PAF - likely secondary to supply/demand - trending down - normal ECG - continue f/u with cardiology as scheduled Constipation - miralax was given - patient had large BM this morning PT/OT evaluation completed. Reviewed and determined patient is safe to return home and does not need rehabilitation. Follow-up with PCP within 1 week. Notes For Next Care Provider Medication Changes From Visit Start Bactrim for UTI. Stop ibuprofen. Hold Jardiance until seen by PCP. Admission HPI Per Admitting Provider The patient is a 84-year-old female with a past medical history including dementia, CKD stage IIIb, PAF, SSS, hypertension, overactive bladder, CVA, and diabetes mellitus type 2.The patient presents to the emergency department, with her son present at bedside, who provides most of her history and ROS. He reports that he had seen her around 5:00 PM earlier today, and noted she was confused, and that her blood sugar recording monitor was reading as high. She was also having headache, but having no other symptomatology. He brought her to the emergency department, where she was found to have a glucose 366, and elevated troponin at 52.3, and increased creatinine to 1.73. Urinalysis was suggestive of urinary tract infection, and patient was referred for evaluation for admission to the [facility] Hospitalist service. Discharge Exam General: no acute distress; non-toxic appearing; well-nourished; cooperative HEENT: normocephalic, atraumatic; no scleral icterus; PERRLA w/ EOMs intact; vision and hearing grossly intact Neck: supple; no lymphadenopathy; trachea midline Skin: warm, dry without signs of tenting; no cyanosis; no rashes, bruising, lesions, or erythema noted CV: chest wall NTP; RRR; systolic murmur present; pulses intact and symmetric at radial, DP, and PT Lungs: no acute respiratory distress; symmetrical chest wall expansion; clear breath sounds across all lung moscoso w/o adventitious sounds; no wheezing ABD: Soft, NTP; BS present; no rebound/guarding; no distention MSK: no tics or fasciculations; no edema noted in the LEs b/l, nonerythematous Neuro: A&Ox3; normal mood and affect; fluent speech; no focal deficits; sensation grossly intact in the LEs b/l Discharge Plan Discharge Items Patient Disposition: Home - Self-Care Reason For Visit: HYPERGYLCEMIA IN DM, RADHA, ELEVATED TROP, UTI Discharge Diagnosis: urinary tract infection present on admission acute kidney injury resolved confusion from urinary infection resolved high blood sugar secondary to urinary tract infection Activity: Resume your previous activity Non-emergency contact: Primary Care Provider Call non-emergency contact if: you have any medication questions, your symptoms worsen, your pain is not controlled and your temperature is above 101 Follow-up/Referrals: Dean Meier MD [Primary Care Provider] - (PCP-F/U within 1 week) PCP,NO [Physician] - Diet: Carb Consistent or DM2 Addtl Attending Provider Instructions: Mago Obregon, you were admitted to the hospital for acute kidney injury, urinary tract infection, type 2 diabetes mellitus with elevated blood sugar. While in the hospital, you were treated with IV fluids, IV antibiotics for infection, short acting insulin for elevated blood sugar. Labs were drawn daily to assess kidney function and blood counts. Urinalysis was performed to check for infection, urine culture was ordered to determine causative agent for urinary infection and effectiveness of antibiotic given. A1c was performed in the hospital, your current A1c is 7.4. MiraLAX was given for constipation while in the hospital. You were evaluated by physical therapy and Occupational Therapy, short-term rehabilitation is not needed. You will be prescribed antibiotics to complete for urinary infection after discharge. It is important to take medication with food and until gone. After discharge, it is important for you to follow-up with your primary care provider within 1 week. It would be beneficial to discuss additional treatment options for type 2 diabetes with your primary care provider. Pending Studies at Discharge: Yes Stand-Alone Forms: My [facility] Medications and DC Order Prescriptions: New sulfamethoxazole-trimethoprim [Bactrim DS] 800-160 mg tablet 1 tab PO BID 5 Days Qty: 10 0RF Continued atorvastatin 40 mg tablet 40 mg PO DAILY omega-3 fatty acids 1,000 mg Capsule 1,000 mg PO BID donepezil 10 mg tablet 10 mg PO HS aspirin 81 mg Tablet,Delayed Release (Dr/Ec) 81 mg PO DAILY ipratropium bromide 21 mcg (0.03 %) spray,non-aerosol 2 spray INTRANASAL Q12 memantine 10 mg tablet 10 mg PO BID solifenacin 5 mg tablet 5 mg PO DAILY Hold Instructions: hold unless your family doctor recommends resuming it Centrum Silver 0.4 mg-300 mcg- 250 mcg Tablet 1 tab PO DAILY Mounjaro 5 mg/0.5 mL pen injector 5 mg SUBCUT .Q7DAYS Rx Instructions: Q thur cholecalciferol (vitamin D3) [Vitamin D3] 25 mcg (1,000 unit) Tablet 25 mcg PO DAILY Qty: 1 0RF (DME) OneTouch Verio test strips Strip See Rx Instructions .Route Qty: 100 1RF Rx Instructions: Check blood sugars twice daily. (DME) lancets Misc See Rx Instructions .Route Qty: 100 2RF Rx Instructions: check blood sugars twice daily mirabegron 50 mg tablet extended release 24 hr 50 mg PO DAILY trazodone 50 mg tablet 50 mg PO HS gabapentin 100 mg capsule 200 mg PO QAM gabapentin 100 mg capsule 300 mg PO QPM Held Jardiance 10 mg tablet 10 mg PO QAM Hold Instructions: Resume on 11/17/24. Ignore above date. Hold until PCP tells you to resume Discontinued ibuprofen [IBU] 600 mg tablet 600 mg PO BID Discharge Orders: Discharge Order (Routine); Ordered 11/03/24 Ordered By: Ursula Willard/Other Patient Handouts: High Blood Sugar (Hyperglycemia), Managing Type 2 Diabetes, Healthy Meals for Diabetes, Diabetes: Meal Planning Admission Data Admit Date/Time: 10/31/24 22:47 Attending Provider: Javier Anglin Admit Provider: Anthony Villareal Primary Care Provider: Dean Meier Other Providers: Anthony Villareal Other Interventions: Discharge Summary Assessment (RN) Last Done: 11/03/24 14:17 Hospital Stay Data Consultations 10/31/24 21:58 ED Decision to Admit Stat Diagnostic Imagining Performed 10/31/24 21:33 CT head/brain wo con Stat 10/31/24 22:30 CT Abd and Pelvis [CT abd pelvis wo con] Stat Pending Results Patient Have Any Pending Studies at Discharge: Yes Discharge Instructions Given to Patient (Per Discharging Provider) Mago Obregon, you were admitted to the hospital for acute kidney injury, u rinary tract infection, type 2 diabetes mellitus with elevated blood sugar. While in the hospital, you were treated with IV fluids, IV antibiotics for infection, short acting insulin for elevated blood sugar. Labs were drawn daily to assess kidney function and blood counts. Urinalysis was performed to check for infection, urine culture was ordered to determine causative agent for urinary infection and effectiveness of antibiotic given. A1c was performed in the hospital, your current A1c is 7.4. MiraLAX was given for constipation while in the hospital. You were evaluated by physical therapy and Occupational Therapy, short-term rehabilitation is not needed. You will be prescribed antibiotics to complete for urinary infection after discharge. It is important to take medication with food and until gone. After discharge, it is important for you to follow-up with your primary care provider within 1 week. It would be beneficial to discuss additional treatment options for type 2 diabetes with your primary care provider. Supervising Physician Co-Signing Physician Notes Patient was seen and examined independently I discussed the case with Ursula MULTANI I reviewed pertinent past medical social family history and also the plan of care and agree with the plan of care. Patient met with a metabolic encephalopathy from UTI present on admission and uncontrolled diabetes. Feeling the uncontrolled diabetes is from the UTI. Patient fortunately had a poly microbial specimen which is likely contaminant but she did improve with antibiotic therapy Glucose control has been via insulin therapy and reeducation for dietary restriction PT OT consults feel the patient is safe to return home. Time to evaluate review and construct discharge was greater than 30 minutes Any exceptions will be noted below Total Time Total Time Spent Total Time Spent (In Minutes): >30 Coding Level of Care Code None Diagnoses Metabolic encephalopathy G93.41 Acute UTI N39.0 Acute kidney injury N17.9 Uncontrolled type 2 diabetes mellitus with hyperglycemia E11.65 Elevated troponin R79.89 PAF (paroxysmal atrial fibrillation) I48.0 Constipation K59.00
--- NOTE | 2024-11-03 20:26 | Billing Data ---
Date of Service November 03, 2024 Coding Level of Care Code 21829 INP/OBS DISCH >30 MIN
== END 2024-11-03 17:28 | disposition home or self-care (01) | DRG 689 ==
LOC: ED 20:24 → EDINP 22:47 → INTOOBSV 22:47 → SUATTDRO 22:47 → 2S 11-01 00:39

== ENCOUNTER 2025-06-23 17:08 | Observation (INO) ==
[2025-06-23 18:27] LABS: Hematocrit (blood only) 46.9 % (37.0-47.0); Hemoglobin 15.2 g/dl (12.0-16.0); Immature Granulocytes # (auto) 0.02 K/uL (0.01-0.20); Immature Granulocytes % (auto) 0.2 %; Mean Corpuscular Hemoglobin 29.9 pg (25.0-34.0); Mean Corpuscular Volume 92.3 fL (80.0-100.0); Platelet Count 192 K/uL (130-400); RDW Standard Deviation 44.6 fL (36.4-46.3); Red Blood Count 5.08 M/uL (4.20-5.40); White Blood Count 9.45 K/ul (4.8-10.8)
[2025-06-23 19:07] LABS: Alanine Aminotransferase 18 U/L (7-52); Albumin Globulin Ratio 1.3 (0.9-2); Albumin Level 4.0 gm/dl (3.4-5.0); Alkaline Phosphatase 51 U/L (34-104); Anion Gap 10 (3-11); Bilirubin,Total 0.5 mg/dl (0.2-1.0); Blood Urea Nitrogen 33 mg/dl (6-23); Calcium 9.7 mg/dl (8.6-10.3); Carbon Dioxide 24 mmol/L (21-32); Chloride 102 mmol/L (98-107); Creatinine Clr Calc Pharmacy 35.0 ml/min; Globulin 3.0 gm/dl (2.5-4.0); Glucose 181 mg/dl (70-99(Fasting)); Magnesium 2.0 mg/dl (1.7-2.4); Sodium 136 mmol/L (136-145); Total Protein 7.0 gm/dl (6.0-8.3)
[2025-06-23 19:07] LABS: Appearance Urine Clear (Clear); Glucose Urine UA 3+ (Negative)
--- NOTE | 2025-06-23 19:41 | Emergency Department Note ---
Impression & Plan Acute confusion, Elevated troponin ED Provider Note HISTORY OF PRESENT ILLNESS: Patient is an 84-year-old female presenting with confusion. Patient reportedly has been having intermittent episodes of confusion over the last few days. Patient's son reports the patient lives alone. He was called last night because she was found walking on the street at 3 AM. Patient does not remember what happened. She reportedly was treated for urinary tract infection a few weeks ago. Patient denies any recent falls or head injuries. Son reports that a few days ago the patient seemed to be walking sideways. Patient has no complaints on arrival to the ER. Denies any dysuria or hematuria. Denies any recent fevers or chills. She has a history of dementia. ROS: as above PHYSICAL EXAM: Constitutional: Patient appears in no acute distress. HENT: Head: Normocephalic and atraumatic. Eyes: EOMI, PERRL Mouth/Throat: Mucous membranes moist. Neck: Trachea midline. Neck supple. Cardiovascular: RRR, No murmurs, rubs or gallops. Intact distal pulses. Pulmonary/Chest: No respiratory distress. Breath sounds clear and equal bilaterally. No wheezes or rales. Abdominal: Abdomen soft, no tenderness, rebound or guarding. Musculoskeletal: No edema, tenderness or deformity noted. Skin: Warm and dry. No rash, erythema, pallor or cyanosis Psychiatric: Appropriate mood and affect for situation. Neurological: Alert and keenly responsive. CN II-XII grossly intact, moving all extremities equally and fully. MDM: - Vitals signs stable. - History obtained via patient and patient's son. History as above. - Chronic conditions affecting care: DM-2; HTN; CVA; paroxysmal Afib - Differential diagnoses include, but are not limited to: UTI; pneumonia; viral syndrome; dehydration; CVA; intracranial hemorrhage; ACS - Order placed for continuous cardiac monitoring. At this time, monitor showed rate of 71 bpm with normal sinus rhythm, per my interpretation. - External medical records reviewed. Discharge summary dated 11/03/2024 was reviewed. Patient was admitted at that time secondary to metabolic encephalopathy from a UTI. - EKG image interpreted by myself showed normal sinus rhythm. Rate 71 bpm. QT 380. No acute ischemic changes. - Laboratory workup interpreted by myself showed normal WBC; stable electrolytes; slightly elevated troponin (22.3); normal AST/ALT - Viral respiratory panel negative - CXR image reviewed interpreted by myself ascending for pneumonia, per my interpretation. - UA negative for infection - CT head wo contrast negative for acute pathology - Son at bedside reports that patient does not seem back to her normal self at this point. Will work on admission to the hospital for further evaluation - Discussion was had with telephonic nurse case manager about patient's case and need for admission - Hospitalist consulted for admission - Patient admitted to [facility] for further evaluation and management. ASSESSMENT AND PLAN: Diagnosis: Confusion; elevated troponin Plan: Admit Past Med/Surg History Problem List (Updated 06/23/25 @ 23:48 by Valorie Phillips MD) Elevated troponin (Acute) Acute confusion (Acute) Constipation Uncontrolled type 2 diabetes mellitus with hyperglycemia Metabolic encephalopathy Acute kidney injury Hyperglycemia due to type 2 diabetes mellitus AMS (altered mental status) (Acute) Hyperglycemia (Acute) Elevated troponin (Acute) Leukocytosis (Acute) Acute UTI (Acute) Dementia CKD stage 3b, GFR 30-44 ml/min PAF (paroxysmal atrial fibrillation) SSS (sick sinus syndrome) Heart murmur HBP (high blood pressure) Bradycardia Overactive bladder Insomnia Heart palpitations (Acute) Intermittent lightheadedness (Acute) CVA (cerebral vascular accident) DM2 (diabetes mellitus, type 2) Medical History Presence of Watchman left atrial appendage closure device Surgical History Pacemaker Family History Unknown No problems noted. Social History Smoking Status: Never smoker Do You Dip or Chew Tobacco: No; Hx Alcohol Use: No Hx Substance Use: No Preferred Language: Ecuadorean Communication Ability: Effective Fruit Press Operator Required: No Beliefs That Will Affect Care: None marital status: / Current Living Situation: Alone Current Living Situation Comment: alone current occupational status: retired How many Children do You have: 3 Feels Safe at Home: Yes Diet: diabetic during the past year weight has: remained stable Assistive Devices: Glasses Allergies Allergies Allergy/AdvReac Type Severity Reaction Status Date / Time crab Allergy Rash Verified 01/19/25 15:39 meperidine [From Demerol] Allergy Rash Verified 01/19/25 15:39 Penicillins Allergy Rash Verified 01/19/25 15:39 Home Meds Home Medications Medication Instructions Recorded Confirmed aspirin 81 mg tablet,delayed 81 mg PO DAILY 12/27/23 01/19/25 release atorvastatin 40 mg tablet 40 mg PO DAILY 12/27/23 01/19/25 donepezil 10 mg tablet 10 mg PO HS 12/27/23 01/19/25 empagliflozin 10 mg tablet 10 mg PO QAM 12/27/23 01/19/25 (Jardiance) ipratropium bromide 21 mcg (0.03 2 spray intranasal Q12 12/27/23 01/19/25 %) nasal spray memantine 10 mg tablet 10 mg PO BID 12/27/23 01/19/25 hjxtnyny-[id number]-[id number] acid 0.4 1 tab PO DAILY 12/27/23 01/19/25 mg-lycopene 300 mcg-lutein 250 mcg tablet (Centrum Silver) omega-3 fatty acids 1,000 mg 1,000 mg PO BID 12/27/23 01/19/25 capsule solifenacin 5 mg tablet 5 mg PO DAILY 12/27/23 01/19/25 tirzepatide 5 mg/0.5 mL 5 mg subcut .Q7DAYS 12/27/23 01/19/25 subcutaneous pen injector (Stephanie) gabapentin 100 mg capsule 200 mg PO QAM 10/31/24 01/19/25 gabapentin 100 mg capsule 300 mg PO QPM 10/31/24 01/19/25 mirabegron 50 mg tablet,extended 50 mg PO DAILY 10/31/24 01/19/25 release 24 hr trazodone 50 mg tablet 50 mg PO HS 10/31/24 01/19/25 Previous Rx's Medication Instructions Recorded cholecalciferol (vitamin D3) 25 25 mcg PO DAILY #1 tab 12/31/23 mcg (1,000 unit) tablet (Vitamin D3) blood sugar diagnostic (OneTouch #100 ea 01/01/24 Verio test strips) lancets #100 ea 01/01/24 Results & Data (ED) Vital Signs Vital Signs - 24 hr 06/23/25 17:23 06/23/25 18:05 06/23/25 18:36 Temperature 36.6 C Temperature Source Oral Pulse Rate 70 67 Pulse Rate [Apical] 67 Pulse Rhythm [Apical] Pulse Strength [Apical] Respiratory Rate 18 16 Respiratory Effort / Characteristics Non-Labored Spontaneous Respiratory Depth Normal Respiratory Pattern Regular Blood Pressure 162/79 H Blood Pressure [Right Arm] 133/87 Blood Pressure Mean 106 Blood Pressure Mean [Right Arm] 102 Blood Pressure Position [Right Arm] Pulse Oximetry 96 96 Oxygen Delivery Method Room Air Room Air Sepsis Recent Fever Within 48 Hours No Sepsis New/Unexplained Change in Mental Status No Sepsis Action Taken by Nursing No Action Required 06/23/25 19:04 06/23/25 20:00 06/23/25 22:00 Temperature Temperature Source Pulse Rate Pulse Rate [Apical] 70 74 Pulse Rhythm [Apical] Regular Regular Pulse Strength [Apical] Normal Normal Respiratory Rate 17 18 Respiratory Effort / Characteristics Non-Labored Non-Labored Respiratory Depth Normal Normal Respiratory Pattern Regular Regular Blood Pressure Blood Pressure [Right Arm] 106/86 163/77 H Blood Pressure Mean Blood Pressure Mean [Right Arm] 92 105 Blood Pressure Position [Right Arm] Lying Lying Pulse Oximetry 95 96 96 Oxygen Delivery Method Room Air Room Air Room Air Sepsis Recent Fever Within 48 Hours Sepsis New/Unexplained Change in Mental Status Sepsis Action Taken by Nursing 06/23/25 22:29 Temperature Temperature Source Pulse Rate 72 Pulse Rate [Apical] Pulse Rhythm [Apical] Pulse Strength [Apical] Respiratory Rate Respiratory Effort / Characteristics Respiratory Depth Respiratory Pattern Blood Pressure Blood Pressure [Right Arm] Blood Pressure Mean Blood Pressure Mean [Right Arm] Blood Pressure Position [Right Arm] Pulse Oximetry Oxygen Delivery Method Sepsis Recent Fever Within 48 Hours Sepsis New/Unexplained Change in Mental Status Sepsis Action Taken by Nursing Laboratory Data 06/23/25 18:05 06/23/25 19:31 Lab Results 06/23/25 06/23/25 06/23/25 Range/Units 18:05 18:35 18:38 WBC 9.45 (4.8-10.8) K/ul RBC 5.08 (4.20-5.40) M/uL Hgb 15.2 (12.0-16.0) g/dl Hct 46.9 (37.0-47.0) % MCV 92.3 (80.0-100.0) fL MCH 29.9 (25.0-34.0) pg MCHC 32.4 (32.0-36.0) g/dL RDW Std Deviation 44.6 (36.4-46.3) fL RDW Coeff of [place] 13.2 (11.5-14.5) % Plt Count 192 (130-400) K/uL MPV 10.1 (9.4-12.4) fL Immature Gran % (Auto) 0.2 % Neut % (Auto) 50.4 % Lymph % (Auto) 39.6 % Ramsey % (Auto) 8.7 % Eos % (Auto) 0.8 % Baso % (Auto) 0.3 % Neut # (Auto) 4.76 (1.40-6.50) K/uL Lymph # (Auto) 3.74 H (1.20-3.40) K/uL Ramsey # (Auto) 0.82 H (0.11-0.59) K/uL Eos # (Auto) 0.08 (0.00-0.50) K/uL Baso # (Auto) 0.03 (0.00-0.20) K/uL Immature Gran # (Auto) 0.02 (0.01-0.20) K/uL Sodium 136 (136-145) mmol/L Potassium TNP Chloride 102 (98-107) mmol/L Carbon Dioxide 24 (21-32) mmol/L Anion Gap 10 (3-11) BUN 33 H (6-23) mg/dl Creatinine 0.86 (0.6-1.2) mg/dl Est Cr Clr Drug Dosing 35.0 ml/min eGFR 66.16 BUN/Creatinine Ratio 38.4 H (10-20) Glucose 181 H (70-99(Fasting)) mg/dl POC Glucose 154 H (70-99) mg/dl Calcium 9.7 (8.6-10.3) mg/dl Magnesium 2.0 (1.7-2.4) mg/dl Total Bilirubin 0.5 (0.2-1.0) mg/dl AST TNP ALT 18 (7-52) U/L Alkaline Phosphatase 51 (34-104) U/L Troponin I High Sens 22.3 H (0-14) pg/ml Total Protein 7.0 (6.0-8.3) gm/dl Albumin 4.0 (3.4-5.0) gm/dl Globulin 3.0 (2.5-4.0) gm/dl Albumin/Globulin Ratio 1.3 (0.9-2) Urine Color Urine Appearance (Clear) Urine pH (4.5-7.5) Ur Specific [place] (1.000-1.030) Urine Protein (Negative) Urine Glucose (UA) (Negative) Urine Ketones (Negative) Urine Blood (Negative) Urine Nitrite (Negative) Urine Bilirubin (Negative) Urine Urobilinogen (Negative) Ur Leukocyte Esterase (Negative) Urine Comment Adenovirus (PCR) Not Detected (NotDetected) B. pertussis DNA (PCR) Not Detected (NotDetected) B.parapertussis DNA PCR Not Detected (NotDetected) C. pneumoniae DNA (PCR) Not Detected (NotDetected) Coronavirus OC43 (PCR) Not Detected (NotDetected) Coronavirus HKU1 (PCR) Not Detected (NotDetected) Coronavirus 229E (PCR) Not Detected (NotDetected) SARS-CoV-2 (PCR) Not Detected (NotDetected) Coronavirus NL63 (PCR) Not Detected (NotDetected) Human Metapneumovir PCR Not Detected (NotDetected) Influenza Type A (PCR) Not Detected (NotDetected) Influenza Type B (PCR) Not Detected (NotDetected) M. pneumoniae (PCR) Not Detected (NotDetected) Parainfluenza 1 (PCR) Not Detected (NotDetected) Parainfluenza 2 (PCR) Not Detected (NotDetected) Parainfluenza 3 (PCR) Not Detected (NotDetected) Parainfluenza 4 (PCR) Not Detected (NotDetected) RSV (PCR) Not Detected (NotDetected) Entero/Rhino (PCR) Not Detected (NotDetected) 06/23/25 06/23/25 Range/Units 18:55 19:31 WBC (4.8-10.8) K/ul RBC (4.20-5.40) M/uL Hgb (12.0-16.0) g/dl Hct (37.0-47.0) % MCV (80.0-100.0) fL MCH (25.0-34.0) pg MCHC (32.0-36.0) g/dL RDW Std Deviation (36.4-46.3) fL RDW Coeff of [place] (11.5-14.5) % Plt Count (130-400) K/uL MPV (9.4-12.4) fL Immature Gran % (Auto) % Neut % (Auto) % Lymph % (Auto) % Ramsey % (Auto) % Eos % (Auto) % Baso % (Auto) % Neut # (Auto) (1.40-6.50) K/uL Lymph # (Auto) (1.20-3.40) K/uL Ramsey # (Auto) (0.11-0.59) K/uL Eos # (Auto) (0.00-0.50) K/uL Baso # (Auto) (0.00-0.20) K/uL Immature Gran # (Auto) (0.01-0.20) K/uL Sodium (136-145) mmol/L Potassium 4.4 Chloride (98-107) mmol/L Carbon Dioxide (21-32) mmol/L Anion Gap (3-11) BUN (6-23) mg/dl Creatinine (0.6-1.2) mg/dl Est Cr Clr Drug Dosing ml/min eGFR BUN/Creatinine Ratio (10-20) Glucose (70-99(Fasting)) mg/dl POC Glucose (70-99) mg/dl Calcium (8.6-10.3) mg/dl Magnesium (1.7-2.4) mg/dl Total Bilirubin (0.2-1.0) mg/dl AST 23 ALT (7-52) U/L Alkaline Phosphatase (34-104) U/L Troponin I High Sens (0-14) pg/ml Total Protein (6.0-8.3) gm/dl Albumin (3.4-5.0) gm/dl Globulin (2.5-4.0) gm/dl Albumin/Globulin Ratio (0.9-2) Urine Color Yellow Urine Appearance Clear (Clear) Urine pH 5.5 (4.5-7.5) Ur Specific [place] 1.026 (1.000-1.030) Urine Protein Negative (Negative) Urine Glucose (UA) 3+ H (Negative) Urine Ketones 1+ H (Negative) Urine Blood Negative (Negative) Urine Nitrite Negative (Negative) Urine Bilirubin Negative (Negative) Urine Urobilinogen Negative (Negative) Ur Leukocyte Esterase Negative (Negative) Urine Comment Adenovirus (PCR) (NotDetected) B. pertussis DNA (PCR) (NotDetected) B.parapertussis DNA PCR (NotDetected) C. pneumoniae DNA (PCR) (NotDetected) Coronavirus OC43 (PCR) (NotDetected) Coronavirus HKU1 (PCR) (NotDetected) Coronavirus 229E (PCR) (NotDetected) SARS-CoV-2 (PCR) (NotDetected) Coronavirus NL63 (PCR) (NotDetected) Human Metapneumovir PCR (NotDetected) Influenza Type A (PCR) (NotDetected) Influenza Type B (PCR) (NotDetected) M. pneumoniae (PCR) (NotDetected) Parainfluenza 1 (PCR) (NotDetected) Parainfluenza 2 (PCR) (NotDetected) Parainfluenza 3 (PCR) (NotDetected) Parainfluenza 4 (PCR) (NotDetected) RSV (PCR) (NotDetected) Entero/Rhino (PCR) (NotDetected) Imaging Data Radiologist's Impression: Head CT 06/23/25 17:54 Exam: CT head brain without contrast: Reason for exam: Confusion. Previous studies: 01/02/2025. FINDINGS: There is diffuse atrophy and lucency in the matter. This is essentially stable when compared to the previous study. No acute intracranial mass, hemorrhage or edema is found at this time. No midline shift or extra-axial blood/fluid collection noted. Bony calvarium shows no acute process. IMPRESSION: 1. Negative for acute intracranial process unenhanced head CT study. 2. 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 Electronically signed by Glenroy Wu 06-23-2025 8:07 PM Discharge Plan Visit Data Chief Complaint: Confusion Stated Complaint: MASS CONFUSION, POSS MINI STROKE OR TIA ED Provider: Valorie Phillips Discharge Problem: Acute confusion, Elevated troponin Condition: Fair Forms Stand Alone Forms: [facility] [employer] Prescriptions Prescriptions: No Action atorvastatin 40 mg tablet 40 mg PO DAILY omega-3 fatty acids 1,000 mg Capsule 1,000 mg PO BID donepezil 10 mg tablet 10 mg PO HS aspirin 81 mg Tablet,Delayed Release (Dr/Ec) 81 mg PO DAILY ipratropium bromide 21 mcg (0.03 %) spray,non-aerosol 2 spray INTRANASAL Q12 memantine 10 mg tablet 10 mg PO BID solifenacin 5 mg tablet 5 mg PO DAILY Hold Instructions: hold unless your family doctor recommends resuming it Centrum Silver 0.4 mg-300 mcg- 250 mcg Tablet 1 tab PO DAILY Jardiance 10 mg tablet 10 mg PO QAM Hold Instructions: Resume on 11/17/24. Ignore above date. Hold until PCP tells you to resume Mounjaro 5 mg/0.5 mL pen injector 5 mg SUBCUT .Q7DAYS Rx Instructions: Q thur cholecalciferol (vitamin D3) [Vitamin D3] 25 mcg (1,000 unit) Tablet 25 mcg PO DAILY Qty: 1 0RF (DME) OneTouch Verio test strips Strip See Rx Instructions .Route Qty: 100 1RF Rx Instructions: Check blood sugars twice daily. (DME) lancets Misc See Rx Instructions .Route Qty: 100 2RF Rx Instructions: check blood sugars twice daily mirabegron 50 mg tablet extended release 24 hr 50 mg PO DAILY trazodone 50 mg tablet 50 mg PO HS gabapentin 100 mg capsule 200 mg PO QAM gabapentin 100 mg capsule 300 mg PO QPM Referrals Referrals: Dean Meier MD [Primary Care Provider] -
[2025-06-23 19:45] LABS: Chlamydia pneumoniae PCR Not Detected (NotDetected); Coronavirus 229E PCR Not Detected (NotDetected); Coronavirus CoV-2 (COVID19)PCR Not Detected (NotDetected); Coronavirus HKU1 PCR Not Detected (NotDetected); Coronavirus NL63 PCR Not Detected (NotDetected); Coronavirus OC43PCR Not Detected (NotDetected); Human Metapneumovirus PCR Not Detected (NotDetected); Parainfluenza Virus 1 PCR Not Detected (NotDetected); Parainfluenza Virus 2 PCR Not Detected (NotDetected); Parainfluenza Virus 3 PCR Not Detected (NotDetected); Parainfluenza Virus 4 PCR Not Detected (NotDetected); Respiratory Syncytial VirusPCR Not Detected (NotDetected); Rhinovirus/Enterovirus PCR Not Detected (NotDetected)
--- NOTE | 2025-06-23 20:07 | CT Scan Report ---
Exam: CT head brain without contrast: Reason for exam: Confusion. Previous studies: 01/02/2025. FINDINGS: There is diffuse atrophy and lucency in the matter. This is essentially stable when compared to the previous study. No acute intracranial mass, hemorrhage or edema is found at this time. No midline shift or extra-axial blood/fluid collection noted. Bony calvarium shows no acute process. IMPRESSION: 1. Negative for acute intracranial process unenhanced head CT study. 2. 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 Electronically signed by Glenroy Wu 06-23-2025 8:07 PM
[2025-06-23 20:18] LABS: Potassium 4.4 mmol/L (3.5-5.1)
--- NOTE | 2025-06-23 22:00 | History & Physical Report ---
Date of Service June 23, 2025 Assessment & Plan (1) Acute confusion: (2) Elevated troponin: (3) DM2 (diabetes mellitus, type 2): Plan 84-year-old female PMHx dementia, T2DM, prior UTIs, PAF not anticoagulated, sick sinus syndrome, HTN, and s/p pacemaker presenting with son for concerns of worsening confusion. Her evaluation is with slightly elevated BUN/creatinine ratio, glucose, and troponin of 22.3. Urine and BioFire negative for infection. Head CT is without acute changes. Admission for AMS, ? placement. #Acute confusion Known history of Alzheimer's dementia, reportedly walking the block at 0300 the morning of arrival. Without complaints at present, no indications of infection. At this time, unclear etiology of confusion. She is not having any neurodeficits at the time of admission to indicate that there was a possible stroke. Head imaging does not reveal any acute findings. She is able to answer questions for the most part, but with some lapse in why she was walking so early in the morning alone. Will admit for further evaluation and to monitor the patient, also with possible placement in mind. - CBC grossly WNL; CMP BUN 33, ratio 38.4, glucose 181; troponin 22.3, pending repeat - UA negative - BioFire negative - CXR pending - CT head without acute findings, reveals diffuse atrophy and ischemic angiopathy deep white matter which is stable - Fall precautions - ? placement - case management consulted - PT/OT consulted - appreciate assistance #Elevated troponin Prior history of such; also with history of A-fib not anticoagulated, SSS, and s/p pacemaker. No chest pain at present - Troponin 22.3, pending repeat - EKG sinus rhythm at 71 bpm, without ischemic changes - Likely 2/2 demand #T2DM History of DMT2; at home regimen includes gabapentin for neuropathy, metformin, ? Jardiance on hold, Mounjaro weekly. - Glucose on admission 181; Most recent A1C 10/2024 7.4 - Hold home regimen including gabapentin ? impacted mental state - SSI deferred - BSG ACHS - Adjust regimen as needed #HLD- Atorvastatin - continue #Dementia- Donepezil, memantine - continue #- Solifenacin, mirabegron - continue #Insomnia- Trazodone - hold given some altered mentation Listed medications based off of recent fill history/prior med list, however, cannot confirm medications at time of admission or if taken night of admission, please confirm during dayshift. - Atorvastatin 40mg daily, ? cyclobenzaprine 5mg daily and 10mg HS, Donepezil 10mg HS, Gabapentin 200mg am and 300mg HS, Lisinopril 2.5mg BID, memantine 10mg daily, metformin 500 daily, mirabegron 50mg daily, solifenacin ? 10mg daily, trazodone 50mg HS, Jardiance ? 10mg daily (did not administer, ? on hold), Mounjaro (hold inpt). Dispo: Admit, med/tele VTE prophylaxis: SCDs This document was dictated utilizing [employer]. Please excuse any gr ammatical errors that may be secondary to use of this software. Admission and Anticipated Discharge Date Admission Date: 06/23/2025 History of Present Illness Chief Complaint: AMS Primary Care Provider: Dean Meier MD 84-year-old female PMHx dementia, T2DM, prior UTIs, PAF not anticoagulated, sick sinus syndrome, HTN, and s/p pacemaker presenting with son for concerns of worsening confusion. Son reports that the patient's neighbors called him to inform him that at 0300 the morning of arrival the patient was walking 3 blocks outside "trying to get home." Patient is unable to help provide most of the history, but states that the morning of arrival she was using her walker and she was "going to go to my house." She then states that she remembered that nobody was at her house, as her mother was no longer there. Patient answers "I am not sure" to a lot of questions such as where she was before, where her mother would have been, and questions related to the situation. She states that she admits to feeling sometimes confused. Additionally she has occasional low right sided back pain that comes and goes and feels sharp in nature at times. She is not having any at present. States that has been going on for maybe 1 week, but she is not quite sure. No other complaints. Replies no when asked if she has chest pain, shortness of breath, palpitations, abdominal pain, bowel changes, LUTS, or falls. She does not think that she has had any neurodeficits, (specifically asked if she had any weakness in her arms or legs, loss of sensation, or numbness or tingling). Patient states that she is "somewhere where the sick people go to be treated" but is unable to tell me the hospital name. States that she is in [facility]. She does know that the year is 2024 and that the month is June. Patient is alone in the room at the time of visit. ED evaluation revealed CBC without leukocytosis, stable H&H; CMP BUN 33, ratio 38.4, glucose 181; troponin 22.3, pending repeat; UA negative for infection; BioFire negative; head CT without acute changes, with diffuse atrophy and ischemic angiopathy deep white matter stable; EKG NSR at [address] Goodwin's attestation for adjustments/additions to treatment plan. Allergies Allergy/AdvReac Type Severity Reaction Status Date / Time crab Allergy Rash Verified 01/19/25 15:39 meperidine [From Demerol] Allergy Rash Verified 01/19/25 15:39 Penicillins Allergy Rash Verified 01/19/25 15:39 Home Medications Medication Instructions Recorded Confirmed Type aspirin 81 mg tablet,delayed 81 mg PO DAILY 12/27/23 01/19/25 History release atorvastatin 40 mg tablet 40 mg PO DAILY 12/27/23 01/19/25 History donepezil 10 mg tablet 10 mg PO HS 12/27/23 01/19/25 History empagliflozin 10 mg tablet 10 mg PO QAM 12/27/23 01/19/25 History (Jardiance) ipratropium bromide 21 mcg (0.03 2 spray intranasal Q12 12/27/23 01/19/25 History %) nasal spray memantine 10 mg tablet 10 mg PO BID 12/27/23 01/19/25 History tjfaufyi-ola-ceozi acid 0.4 1 tab PO DAILY 12/27/23 01/19/25 History mg-lycopene 300 mcg-lutein 250 mcg tablet (Centrum Silver) omega-3 fatty acids 1,000 mg 1,000 mg PO BID 12/27/23 01/19/25 History capsule solifenacin 5 mg tablet 5 mg PO DAILY 12/27/23 01/19/25 History tirzepatide 5 mg/0.5 mL 5 mg subcut .Q7DAYS 12/27/23 01/19/25 History subcutaneous pen injector (Mounjaro) cholecalciferol (vitamin D3) 25 25 mcg PO DAILY #1 tab 12/31/23 01/19/25 Rx mcg (1,000 unit) tablet (Vitamin D3) blood sugar diagnostic (OneTouch #100 ea 01/01/24 01/19/25 Rx Verio test strips) lancets #100 ea 01/01/24 01/19/25 Rx gabapentin 100 mg capsule 200 mg PO QAM 10/31/24 01/19/25 History gabapentin 100 mg capsule 300 mg PO QPM 10/31/24 01/19/25 History mirabegron 50 mg tablet,extended 50 mg PO DAILY 10/31/24 01/19/25 History release 24 hr trazodone 50 mg tablet 50 mg PO HS 10/31/24 01/19/25 History Past Med/Surg History Problem List Elevated troponin (Acute) Acute confusion (Acute) Constipation Uncontrolled type 2 diabetes mellitus with hyperglycemia Metabolic encephalopathy Acute kidney injury Hyperglycemia due to type 2 diabetes mellitus AMS (altered mental status) (Acute) Hyperglycemia (Acute) Elevated troponin (Acute) Leukocytosis (Acute) Acute UTI (Acute) Dementia CKD stage 3b, GFR 30-44 ml/min PAF (paroxysmal atrial fibrillation) SSS (sick sinus syndrome) Heart murmur HBP (high blood pressure) Bradycardia Overactive bladder Insomnia Heart palpitations (Acute) Intermittent lightheadedness (Acute) CVA (cerebral vascular accident) DM2 (diabetes mellitus, type 2) Medical History Presence of Watchman left atrial appendage closure device Surgical History Pacemaker Family History Unknown No problems noted. Social History Smoking Status: Never smoker Second Hand Exposure: No; Do You Dip or Chew Tobacco: No; Hx Alcohol Use: Yes Alcohol type: beer Hx Substance Use: No Preferred Language: Malian Communication Ability: Effective Scientific Software Developer Required: No Beliefs That Will Affect Care: None marital status: / Current Living Situation: Alone current occupational status: retired How many Children do You have: 3 Other Information That Helps Us Care for You: No Feels Safe at Home: Yes Safety Concerns: Feels Safe At This Time Diet: diabetic during the past year weight has: remained stable Assistive Devices: Glasses and Walker Review of Systems Review of Systems: All systems reviewed & are unremarkable except as noted in Subjective Physical Exam Physical Exam: General: No acute distress Skin: Warm and dry Head: Normocephalic, atraumatic Eyes: PERRL, conjunctivae clear, sclera non-icteric; wearing glasses ENT: External ear and ear canal without swelling; nose atraumatic; good dentition, tongue normal appearance, pharynx normal Neck: Supple, no LAD Cardio: RRR, no M/G/R, S1 and S2 normal Resp: No respiratory distress, Lungs CTA in all lobes bilaterally, no wheezes, rales, or rhonchi Abdomen: Soft, symmetric, nontender; No masses or hepatosplenomegaly; Bowel sounds normoactive MSK: No deformities; pulses palpable and equal; no edema. Neuro: Awake, alert; Sensation intact bilaterally; CN grossly intact Psych: Appropriate mood and affect; location "[place], [place]. The place where sick people go to be treated.", "June 2025" Results & Data Results & Data Vital Signs (Past 12 Hours) Vital Signs Temp Pulse Pulse Resp BP BP Pulse Ox 06/23/25 20:00 70 17 106/86 96 06/23/25 19:04 95 06/23/25 18:36 67 06/23/25 18:05 67 16 133/87 96 06/23/25 17:23 36.6 C 70 18 162/79 H 96 O2 Del Method 06/23/25 20:00 Room Air 06/23/25 19:04 Room Air 06/23/25 18:36 06/23/25 18:05 Room Air 06/23/25 17:23 Room Air Laboratory Results 06/23/25 06/23/25 06/23/25 19:31 18:55 18:38 WBC RBC Hgb Hct MCV MCH MCHC RDW Std Deviation RDW Coeff of [place] Plt Count MPV Immature Gran % (Auto) Neut % (Auto) Lymph % (Auto) [place] % (Auto) Eos % (Auto) Baso % (Auto) Neut # (Auto) Lymph # (Auto) [place] # (Auto) Eos # (Auto) Baso # (Auto) Immature Gran # (Auto) Sodium Potassium 4.4 Chloride Carbon Dioxide Anion Gap BUN Creatinine Est Cr Clr Drug Dosing eGFR BUN/Creatinine Ratio Glucose POC Glucose 154 H Calcium Magnesium Total Bilirubin AST 23 ALT Alkaline Phosphatase Troponin I High Sens Total Protein Albumin Globulin Albumin/Globulin Ratio Urine Color Yellow Urine Appearance Clear Urine pH 5.5 Ur Specific [place] 1.026 Urine Protein Negative Urine Glucose (UA) 3+ H Urine Ketones 1+ H Urine Blood Negative Urine Nitrite Negative Urine Bilirubin Negative Urine Urobilinogen Negative Ur Leukocyte Esterase Negative Urine Comment Adenovirus (PCR) B. pertussis DNA (PCR) B.parapertussis DNA PCR C. pneumoniae DNA (PCR) Coronavirus OC43 (PCR) Coronavirus HKU1 (PCR) Coronavirus 229E (PCR) SARS-CoV-2 (PCR) Coronavirus NL63 (PCR) Human Metapneumovir PCR Influenza Type A (PCR) Influenza Type B (PCR) M. pneumoniae (PCR) Parainfluenza 1 (PCR) Parainfluenza 2 (PCR) Parainfluenza 3 (PCR) Parainfluenza 4 (PCR) RSV (PCR) Entero/Rhino (PCR) 06/23/25 06/23/25 18:35 18:05 WBC 9.45 RBC 5.08 Hgb 15.2 Hct 46.9 MCV 92.3 MCH 29.9 MCHC 32.4 RDW Std Deviation 44.6 RDW Coeff of [place] 13.2 Plt Count 192 MPV 10.1 Immature Gran % (Auto) 0.2 Neut % (Auto) 50.4 Lymph % (Auto) 39.6 [place] % (Auto) 8.7 Eos % (Auto) 0.8 Baso % (Auto) 0.3 Neut # (Auto) 4.76 Lymph # (Auto) 3.74 H [place] # (Auto) 0.82 H Eos # (Auto) 0.08 Baso # (Auto) 0.03 Immature Gran # (Auto) 0.02 Sodium 136 Potassium TNP Chloride 102 Carbon Dioxide 24 Anion Gap 10 BUN 33 H Creatinine 0.86 Est Cr Clr Drug Dosing 35.0 eGFR 66.16 BUN/Creatinine Ratio 38.4 H Glucose 181 H POC Glucose Calcium 9.7 Magnesium 2.0 Total Bilirubin 0.5 AST TNP ALT 18 Alkaline Phosphatase 51 Troponin I High Sens 22.3 H Total Protein 7.0 Albumin 4.0 Globulin 3.0 Albumin/Globulin Ratio 1.3 Urine Color Urine Appearance Urine pH Ur Specific [place] Urine Protein Urine Glucose (UA) Urine Ketones Urine Blood Urine Nitrite Urine Bilirubin Urine Urobilinogen Ur Leukocyte Esterase Urine Comment Adenovirus (PCR) Not Detected B. pertussis DNA (PCR) Not Detected B.parapertussis DNA PCR Not Detected C. pneumoniae DNA (PCR) Not Detected Coronavirus OC43 (PCR) Not Detected Coronavirus HKU1 (PCR) Not Detected Coronavirus 229E (PCR) Not Detected SARS-CoV-2 (PCR) Not Detected Coronavirus NL63 (PCR) Not Detected Human Metapneumovir PCR Not Detected Influenza Type A (PCR) Not Detected Influenza Type B (PCR) Not Detected M. pneumoniae (PCR) Not Detected Parainfluenza 1 (PCR) Not Detected Parainfluenza 2 (PCR) Not Detected Parainfluenza 3 (PCR) Not Detected Parainfluenza 4 (PCR) Not Detected RSV (PCR) Not Detected Entero/Rhino (PCR) Not Detected Diagnostic Findings Head CT 06/23/25 17:54 Exam: CT head brain without contrast: Reason for exam: Confusion. Previous studies: 01/02/2025. FINDINGS: There is diffuse atrophy and lucency in the matter. This is essentially stable when compared to the previous study. No acute intracranial mass, hemorrhage or edema is found at this time. No midline shift or extra-axial blood/fluid collection noted. Bony calvarium shows no acute process. IMPRESSION: 1. Negative for acute intracranial process unenhanced head CT study. 2. 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 Electronically signed by Glenroy Wu 06-23-2025 8:07 PM ECG Additional Comments: NSR 71 bpm, ID [id number], QRS 94, QT/QTc 380/412, PRT -8/-14/-19 Code Status & VTE Plan Code Status Full Supervising Physician Co-Signing Physician Notes Patient seen and examined, chart reviewed, case discussed with ALBERT Gallego and I agree with the assessment and plan as above. In brief, patient is an 84yo female with history of dementia, CKD, PAF presenting with worsening confusion. Patient currently lives alone at [facility]. Reportedly with episodes of confusion over the last several days. Patient found walking the streets today at 03:00. During exam she is able to provide some history but is not sure why she is in the hospital. +S1/S2, regular Lungs CTA anteriorly Abd soft, NT/ND Ext warm, well perfused Labs and images reviewed Troponin 22.3 --> 20.6 Assessment/Plan - worsening confusion, ?progression of dementia? -Continue Aricept and namenda -Frequent orientation -Hold Trazodone and Gabapentin for now -Gentle IVF -Remainder as above PG Care Time/CCT Total # of Minutes Spent Total Time Spent with Patient: Total time spent is greater than 50% in coordination of care (as documented) at patient's floor/unit and/or counseling patient: Coding Level of Care Code 80535 INT INP/OBS CARE 3/75MIN Diagnoses Acute confusion R41.0 Elevated troponin R79.89 DM2 (diabetes mellitus, type 2) E11.9
--- NOTE | 2025-06-24 00:14 | XRay Report ---
Exam(s): XR CXR 1 VIEW EXAM: XR Chest, 1 View CLINICAL HISTORY: Reason for exam: confusion. TECHNIQUE: Frontal view of the chest. COMPARISON: Prior chest x-ray from January 02, 2025. FINDINGS: There is an MR-compatible cardiac pacemaker in left chest wall with distal leads in the right atrium right ventricle. Lungs: Unremarkable. No consolidation. Pleural space: Unremarkable. No pneumothorax. Heart: Unremarkable. No cardiomegaly. Mediastinum: Unremarkable. Normal mediastinal contour. Bones/joints: Unremarkable. No acute fracture. IMPRESSION: No evidence of acute cardiopulmonary process. Electronically signed by: Anahi Logan MD 06/24/25 00:13 AM
[2025-06-24] MEDS ORDERED: ONDANSETRON INJ 2 MG/ML 2 ML VIAL IV PRN (01:20)
[2025-06-24] MEDS ORDERED: POLYETHYLENE (MIRALAX) 17 GM PACK PO PRN (01:20)
[2025-06-24] MEDS ORDERED: ACETAMINOPHEN 325 MG TAB PO PRN (01:20)
[2025-06-24] MEDS ORDERED: GLUCAGON FOR INJ 1 MG VIAL SQ PRN (01:44)
[2025-06-24] MEDS ORDERED: CARBOHYDRATES FOR HYPOGLYCEMIA PO PRN (01:44)
[2025-06-24] MEDS ORDERED: GLUCOSE 40% GEL 15 GM TUBE PO PRN (01:44)
[2025-06-24] MEDS ORDERED: GLUCOSE 10 TAB/TUBE PO PRN (01:44)
[2025-06-24] MEDS ORDERED: DEXTROSE 50% 50 ML SYRINGE IV PRN (01:44)
[2025-06-24] MEDS: INSULIN ASPART PER UNIT CHARGE SC SCH (02:08)
[2025-06-24] MEDS: LACTATED RINGER'S 1,000 ML IV SCH (03:37)
[2025-06-24 06:59] LABS: Anion Gap 11.0 (3-11); Calcium 9.4 mg/dl (8.6-10.3); Carbon Dioxide 23.0 mmol/L (21-32); Chloride 105.0 mmol/L (98-107); Potassium 4.2 mmol/L (3.5-5.1); Sodium 139.0 mmol/L (136-145)
[2025-06-24 07:05] LABS: Blood Urea Nitrogen 26.0 mg/dl (6-23); Creatinine Clr Calc Pharmacy 35.5 ml/min; Glucose 88.0 mg/dl (70-99(Fasting))
[2025-06-24] MEDS ORDERED: INFLUENZA VACC TS2025-26(65y+)/PF (IIV3) 0.5mL Syr IM ONE (09:00)
--- NOTE | 2025-06-24 12:35 | Hospitalist Progress Note ---
Date of Service June 24, 2025 Assessment & Plan (1) Acute confusion: (2) Elevated troponin: (3) DM2 (diabetes mellitus, type 2): Plan 84-year-old female PMHx dementia, T2DM, prior UTIs, PAF not anticoagulated, sick sinus syndrome, HTN, and s/p pacemaker presenting with son for concerns of worsening confusion. Her evaluation is with slightly elevated BUN/creatinine ratio, glucose, and troponin of 22.3. Urine and BioFire negative for infection. Head CT is without acute changes. Admission for AMS, ? placement. #Acute confusion Known history of Alzheimer's dementia, reportedly walking the block at 0300 the morning of arrival. Without complaints at present, no indications of infection. At this time, unclear etiology of confusion. She is not having any neurodeficits at the time of admission to indicate that there was a possible stroke. Head imaging does not reveal any acute findings. She is able to answer questions for the most part, but with some lapse in why she was walking so early in the morning alone. Will admit for further evaluation and to monitor the patient, also with possible placement in mind. - CBC grossly WNL; CMP BUN 33, ratio 38.4, glucose 181; troponin 22.3, repeat 20.6 - UA negative - BioFire negative - CXR pending - CT head without acute findings, reveals diffuse atrophy and ischemic angiopathy deep white matter which is stable - Fall precautions - ? placement - case management consulted - PT/OT consulted - appreciate assistance #Elevated troponin Prior history of such; also with history of A-fib not anticoagulated, SSS, and s/p pacemaker. No chest pain at present. - Troponin 22.3, pending repeat - EKG sinus rhythm at 71 bpm, without ischemic changes - Likely 2/2 demand #T2DM History of DMT2; at home regimen includes gabapentin for neuropathy, metformin, ? Jardiance on hold, Mounjaro weekly. - Glucose on admission 181; Most recent A1C 10/2024 7.4 - Hold home regimen including gabapentin ? impacted mental state - SSI deferred - BSG ACHS - Adjust regimen as needed - Resume lisinopril 2.5mg BID #HLD- Atorvastatin - continue #Dementia- Donepezil, memantine - continue #- Solifenacin, mirabegron - continue #Insomnia- Trazodone - hold given some altered mentation Dispo: Admit, med/tele -->transfer to med/surg, no need for tele VTE prophylaxis: SCDs Await therapy evals. Suspect she is at her baseline mentation. PT recommends home if at baseline mentation. OT consult pending. Anticipate home with home health. Admission and Anticipated Discharge Date Admission Date: June 23, 2025 Supervising Physician Co-Signing Physician Notes I verified all [place] points and agree with Karla Braun PA-C with the following exceptions and/or additions: None Subjective Mago is a pleasant 84 yo F who was admitted yesterday evening from home due to increased confusion. She is pleasant and cooperative this AM. Oriented x3. Thinks she's at the hospital for a shot. She denies complaints. Denies chest pain, dyspnea, n/v/d, f/c, headache, or gu symptoms. Review of Systems 2 Review of Systems: All systems reviewed and are unremarkable except as noted in HPI and below. Denies fever, chills, fatigue, headache, nasal congestion, sore throat, cough, chest pain, shortness of breath, palpitations, orthopnea, PND, abdominal pain, n/v/d, constipation, dysuria, hematuria, frequency, back pain, joint pain or swelling, easy bruising or bleeding, skin lesions or rashes. Physical Exam 2 Physical Exam: GENERAL: 84 yo elderly well nourished WF. No distress. LUNGS: Clear to auscultation bilaterally. CARDIOVASCULAR: Regular rate and rhythm. ABDOMEN: Soft, non-tender and non-distended. BS normoactive x 4 quad. EXTREMITIES: No edema. Non-tender. Peripheral pulses +2/4. PSYCHIATRIC: Cooperative. Appropriate mood and affect. SKIN: Warm, dry, intact. No rashes or lesions. Results & Data Results & Data Vital Signs (Past 12 Hours) Vital Signs Temp Pulse Pulse Resp BP BP Pulse Ox 06/24/25 11:38 36.5 C 70 16 153/82 H 93 06/24/25 07:44 36.5 C 67 20 162/73 H 98 06/24/25 07:36 67 06/24/25 03:14 36.4 C L 62 18 168/70 H 97 06/24/25 02:50 80 18 146/70 H 98 06/24/25 01:48 06/24/25 01:48 36.3 C L 73 16 175/78 H 95 06/24/25 01:26 66 O2 Del Method 06/24/25 11:38 Room Air 06/24/25 07:44 Room Air 06/24/25 07:36 06/24/25 03:14 Room Air 06/24/25 02:50 Room Air 06/24/25 01:48 Room Air 06/24/25 01:48 Room Air 06/24/25 01:26 Laboratory Results 06/23/25 18:05 06/24/25 06:00 PG Care Time/CCT Total # of Minutes Spent Total Time Spent with Patient: Total time spent is greater than 50% in coordination of care (as documented) at patient's floor/unit and/or counseling patient: 36 minutes Coding Level of Care Code 65859 SUB INP/OBS CARE 2/35MIN Diagnoses Acute confusion R41.0 Elevated troponin R79.89 DM2 (diabetes mellitus, type 2) E11.9
[2025-06-24] MEDS: LORazepam Inj 0.5 MG in SYRINGE 0.25 ML IV STA (14:39)
[2025-06-24] MEDS ORDERED: MELATONIN 3 MG TAB PO PRN (21:37)
[2025-06-24] MEDS: ATORVASTATIN 40 MG TAB PO SCH (22:53)
[2025-06-24] MEDS: DONEPEZIL HCL 10 MG TAB PO SCH (22:53)
[2025-06-24] MEDS: MEMANTINE HCL 10 MG TAB PO SCH (22:54)
[2025-06-25] MEDS: ASPIRIN 81 MG ECTAB PO SCH (11:24)
[2025-06-25] MEDS: EMPAGLIFLOZIN 10 MG TAB PO SCH (11:24)
[2025-06-25] MEDS: OXYBUTYNIN CHLORIDE XL 5 MG TABCR PO SCH (11:24)
[2025-06-25] MEDS ORDERED: PHA DELIRIUM CONSULT PRN (14:07)
--- NOTE | 2025-06-25 15:28 | Hospitalist Progress Note ---
<Statement entered by Karine Neville MD - 06/25/25 19:15> Presentation with dementia Head CT with diffuse atrophy and ischemic angiopathy deep white matter Will check B12, TSH, B1 levels in AM for completeness. Date of Service June 25, 2025 Assessment & Plan (1) Acute confusion: (2) Elevated troponin: (3) DM2 (diabetes mellitus, type 2): Plan 84-year-old female PMHx dementia, T2DM, prior UTIs, PAF not anticoagulated, sick sinus syndrome, HTN, and s/p pacemaker presenting with son for concerns of worsening confusion. Her evaluation is with slightly elevated BUN/creatinine ratio, glucose, and troponin of 22.3. Urine and BioFire negative for infection. Head CT is without acute changes. Admission for AMS, ? placement. #Acute confusion Known history of Alzheimer's dementia (on Aricept and Namenda), reportedly wa lking the block at 0300 the morning of arrival. Without complaints at present, no indications of infection. At this time, unclear etiology of confusion. She is not having any neuro deficits at the time of admission to indicate that there was a possible stroke. Head imaging does not reveal any acute findings. She is able to answer questions for the most part, but with some lapse in why she was walking so early in the morning alone. Will admit for further evaluation and to monitor the patient, also with possible placement in mind. -CBC grossly WNL; CMP BUN 33, ratio 38.4, glucose 181; troponin 22.3, repeat 20.6 -UA negative -BioFire negative -CXR neg -CT head without acute findings, reveals diffuse atrophy and ischemic angiopathy deep white matter which is stable -Fall precautions -CM consulted for possible placement needs -PT/OT consulted #Elevated troponin Prior history of such; also with history of A-fib not anticoagulated, SSS, and s/p pacemaker, ROS for cardiac symptoms -Troponin 22.3>20.6>17.4 -EKG sinus rhythm at 71 bpm, without ischemic changes -Likely 2/2 demand #T2DM History of DMT2; at home regimen includes gabapentin for neuropathy, metformin, ? Jardiance on hold, Mounjaro weekly. -Glucose on admission 181; Most recent A1C 10/2024 7.4 -Hold home regimen including gabapentin ? impacted mental state -SSI deferred -BSG ACHS -Adjust regimen as needed -Resume lisinopril 2.5mg BID #HLD -Atorvastatin #Dementia -Donepezil, memantine ##Overactive bladder -Solifenacin, mirabegron #Insomnia -Trazodone, held in setting of concerns for mentation and confusion Dispo: Med/surg admission with possible transfer to placement VTE prophylaxis: SCDs PT consult with patient being safe to go home considering baseline mentation. OT consult pending. Admission and Anticipated Discharge Date Admission Date: June 23, 2025 Subjective Patient sitting up this afternoon eating lunch. She has no complaints. Adamantly denies chest pain, SOB, LUNDBERG, radiating pain in jaw, shoulders or back. States she is unsure where she is at. Oriented to self, month and year. She denies urinary symptoms. Will touch base with son at some point today. Review of Systems Review of Systems: All systems reviewed & are unremarkable except as noted in Subjective Physical Exam Physical Exam: GENERAL APPEARANCE: A&O to person, month and year. Sitting up eating at bedside. NAD. SKIN: Normal color without rashes or lesions. Normal turgor. HEENT: Head AT/NC. Buccal mucosa is moist and pink. NECK: No jugular venous distention. No thyroid enlargement. There is no lymphadenopathy. HEART: RRR without m/g/r LUNGS: Normal inspiratory effort. CTA without w/r/r ABDOMEN: No guarding or rigidity. Normoactive BS in all four quadrants. Abdomen soft and NT. MSK: No bony gross/deformities throughout. ROM intact. EXTREMITIES: No edema, No peripheral cyanosis. Neuro: CN 2-12 grossly intact. No focal neuro deficits PSYCHIATRIC: Normal affect. Eye contact is good. Speech is normal rate and content. Responses are appropriate. Results & Data Results & Data Vital Signs (Past 12 Hours) Vital Signs Temp Pulse Resp BP Pulse Ox O2 Del Method 06/25/25 10:50 75 159/72 H 97 Room Air 06/25/25 10:30 Room Air 06/25/25 08:32 36.3 C L 71 20 172/81 H 97 Room Air Laboratory Results Labs reviewed: Trop PG Care Time/CCT Total # of Minutes Spent Total Time Spent with Patient: Total time spent is greater than 50% in coordination of care (as documented) at patient's floor/unit and/or counseling patient: Coding Level of Care Code 51334 SUB INP/OBS CARE 2/35MIN Diagnoses Acute confusion R41.0 Elevated troponin R79.89 DM2 (diabetes mellitus, type 2) E11.9
[2025-06-26] MEDS ORDERED: PHA DELIRIUM CONSULT PRN (15:46)
--- NOTE | 2025-06-26 17:35 | Hospitalist Progress Note ---
Date of Service June 26, 2025 Assessment & Plan (1) Acute confusion: (2) Elevated troponin: (3) DM2 (diabetes mellitus, type 2): Plan 84-year-old female PMHx dementia, T2DM, prior UTIs, PAF not anticoagulated, sick sinus syndrome, HTN, and s/p pacemaker presenting with son for concerns of worsening confusion. Her evaluation is with slightly elevated BUN/creatinine ratio, glucose, and troponin of 22.3. Urine and BioFire negative for infection. Head CT is without acute changes. Admission for AMS, ? placement. #Acute confusion Known history of Alzheimer's dementia (on Aricept and Namenda), reportedly walking the block at 0300 the morning of arrival. Without complaints at present, no indications of infection. At this time, unclear etiology of confusion. She is not having any neuro deficits at the time of admission to indicate that there was a possible stroke. Head imaging does not reveal any acute findings. She is able to answer questions for the most part, but with some lapse in why she was walking so early in the morning alone. Will admit for further evaluation and to monitor the patient, also with possible placement in mind. -CBC grossly WNL; CMP BUN 33, ratio 38.4, glucose 181; troponin 22.3, repeat 20.6, repeat 17.4 -UA negative -BioFire negative -CXR neg -CT head without acute findings, reveals diffuse atrophy and ischemic angiopathy deep white matter which is stable -Fall precautions -CM consulted for possible placement needs -PT/OT consulted #Elevated troponin Prior history of such; also with history of A-fib not anticoagulated, SSS, and s/p pacemaker, ROS for cardiac symptoms -Troponin 22.3>20.6>17.4 -EKG sinus rhythm at 71 bpm, without ischemic changes -Likely 2/2 demand #T2DM History of DMT2; at home regimen includes gabapentin for neuropathy>held for now -Glucose on admission 181; Most recent A1C 10/2024 7.4 -Hold home regimen including gabapentin ? impacted mental state -SSI deferred -BSG ACHS -Jardiance -Adjust regimen as needed #HLD -Atorvastatin #Dementia -Donepezil, memantine ##Overactive bladder -Solifenacin, mirabegron #Insomnia -Trazodone Dispo: Admit, med/tele -->transfer to med/surg, no need for tele VTE prophylaxis: SCDs Await therapy evals. Suspect she is at her baseline mentation. PT recommends home if at baseline mentation. OT consult pending. Anticipate home with home health. Admission and Anticipated Discharge Date Admission Date: June 23, 2025 Subjective Pt. resting in bed this afternoon. She is oriented to herself and date as she reads it off of the whiteboard. States she is not sure why she is in the hospital. Reassurance provided. Per nursing she slept well last evening and did not require prn Zyprexa. Review of Systems Review of Systems: All systems reviewed & are unremarkable except as noted in Subjective Physical Exam Physical Exam: GENERAL APPEARANCE: Alert and oriented to self only. Lying in bed. NAD. SKIN: Normal color without rashes or lesions.Normal turgor. HEENT: Head AT/NC. Buccal mucosa is moist and pink. NECK: No jugular venous distention. No thyroid enlargement. There is no lymphadenopathy. HEART: RRR without m/g/r. LUNGS: Normal inspiratory effort. CTA without w/r/r. ABDOMEN: No guarding or rigidity. Normoactive BS in all four quadrants. Abdomen soft and NT. MSK: No bony gross/deformities throughout. ROM intact. EXTREMITIES: No edema, No peripheral cyanosis. Neuro: CN 2-12 grossly intact. No focal neuro deficits. PSYCHIATRIC: Normal affect. Eye contact is good. Speech is normal rate and content. Responses are appropriate. Results & Data Results & Data Vital Signs (Past 12 Hours) Vital Signs Temp Pulse Resp BP Pulse Ox O2 Del Method 06/26/25 16:34 36.8 C 67 20 120/75 95 Room Air 06/26/25 07:40 36.5 C 63 16 185/85 H 95 Room Air Laboratory Results Labs reviewed: B12, TSH PG Care Time/CCT Total # of Minutes Spent Total Time Spent with Patient: Total time spent is greater than 50% in coordination of care (as documented) at patient's floor/unit and/or counseling patient: Coding Level of Care Code 55638 SUB INP/OBS CARE 2/35MIN Diagnoses Acute confusion R41.0 Elevated troponin R79.89 DM2 (diabetes mellitus, type 2) E11.9
--- NOTE | 2025-06-27 00:19 | Electrocardiogram Report ---
Test Reason : Blood Pressure : */* mmHG Vent. Rate : 71 BPM Atrial Rate : 71 BPM P-R Int : 186 ms QRS Dur : 94 ms QT Int : 380 ms P-R-T Axes : -8 -14 -19 degrees QTcB Int : 412 ms Normal sinus rhythm Inferior infarct (cited on or before 02-Jan-2025) Possible Anterolateral infarct (cited on or before 02-Jan-2025) Abnormal ECG When compared with ECG of 02-Jan-2025 19:12, Sinus rhythm has replaced Electronic atrial pacemaker Non-specific change in ST segment in Inferior leads Confirmed by Rajan Armstrong ([id number]) on 06/27/2025 12:19:18 AM Referred By: Dean Meier Confirmed By: Rajan Armstrong
[2025-06-27 07:38] VITALS: PULSE 64; RESP 16; TEMP 98.1; O2SAT 93
--- NOTE | 2025-06-27 10:33 | Discharge Summary ---
Discharge Summary Date of Service June 27, 2025 Principal Dx & Hospital Course #1 = Principal Diagnosis (1) Acute confusion: (2) Elevated troponin: (3) DM2 (diabetes mellitus, type 2): Plan #Acute confusion 84-year-old female PMHx dementia, T2DM, prior UTIs, PAF not anticoagulated, sick sinus syndrome, HTN, and s/p pacemaker presenting with son for concerns of worsening confusion. Her evaluation is with slightly elevated BUN/creatinine ratio, glucose, and troponin of 22.3. Urine and BioFire negative for infection. Head CT is without acute changes. No stroke symptoms. Known history of Alzheimer's dementia (on Aricept and Namenda), reportedly walking the block at 0300 the morning of arrival. Son reports that her neighbor usually comes over and spends most of the day with her, but was on vacation for the last 10 days and routine has been disrupted. Son feels comfotable taking her home and will have extra care arranged. Started on zyprexa #Elevated troponin Prior history of such; also with history of A-fib not anticoagulated, SSS, and s/p pacemaker, ROS for cardiac symptoms -Troponin 22.3>20.6>17.4, Likely 2/2 demand -EKG sinus rhythm at 71 bpm, without ischemic changes #T2DM History of DMT2; continue jardiance Gabapentin discontinued #HLD -Atorvastatin #Dementia -Donepezil, memantine ##Overactive bladder -Solifenacin, mirabegron #Insomnia -Trazodone - consider weaning as zyprexa has been started Dispo: discharge to home today Admission HPI Per Admitting Provider 84-year-old female PMHx dementia, T2DM, prior UTIs, PAF not anticoagulated, sick sinus syndrome, HTN, and s/p pacemaker presenting with son for concerns of worsening confusion. Son reports that the patient's neighbors called him to inform him that at 0300 the morning of arrival the patient was walking 3 blocks outside "trying to get home." Patient is unable to help provide most of the history, but states that the morning of arrival she was using her walker and she was "going to go to my house." She then states that she remembered that nobody was at her house, as her mother was no longer there. Patient answers "I am not sure" to a lot of questions such as where she was before, where her mother would have been, and questions related to the situation. She states that she admits to feeling sometimes confused. Additionally she has occasional low right sided back pain that comes and goes and feels sharp in nature at times. She is not having any at present. States that has been going on for maybe 1 week, but she is not quite sure. No other complaints. Replies no when asked if she has chest pain, shortness of breath, palpitations, abdominal pain, bowel changes, LUTS, or falls. She does not think that she has had any neurodeficits, (specifically asked if she had any weakness in her arms or legs, loss of sensation, or numbness or tingling). Patient states that she is "somewhere where the sick people go to be treated" but is unable to tell me the hospital name. States that she is in [facility]. She does know that the year is 2024 and that the month is June. Patient is alone in the room at the time of visit. E D evaluation revealed CBC without leukocytosis, stable H&H; CMP BUN 33, ratio 38.4, glucose 181; troponin 22.3, pending repeat; UA negative for infection; BioFire negative; head CT without acute changes, with diffuse atrophy and ischemic angiopathy deep white matter stable; EKG NSR at [address] Goodwin's attestation for adjustments/additions to treatment plan. Discharge Exam General: NAD, VS as above Resp: normal respiratory effort, lungs clear to auscultation CV: RRR, no murmur, Abd: normal bowel sounds, non tender, soft Extremities: Moves all extremities, no edema Neuro: A&O x2, Skin: intact, no lesions noted Discharge Plan Discharge Items Patient Disposition: Home - Self-Care Reason For Visit: AMS, ELEVATED TROP. Discharge Diagnosis: Dementia Condition on Discharge: Fair Activity: Resume your previous activity Weightbearing: Full weightbearing Non-emergency contact: Primary Care Provider Call non-emergency contact if: you have any medication questions, your symptoms worsen, your pain is not controlled and your temperature is above 101 Follow-up/Referrals: Dean Meier MD [Primary Care Provider] - (Follow up within one week ) Diet: Carb Consistent or DM2 Addtl Attending Provider Instructions: Ms. Obregon, You were hospitalized after an episode of confusion resulting in you walking outside early in the morning. This was likely a consequence of your dementia and a change in your routine. There were no signs infection on any of your workup. Medication changes: - stop gabapentin can worsen confusion - added zyprexa at night to help with sleep and behaviors Consider weaning off trazodone - discuss with PCP at follow up appointment Activity: You can do normal everyday activities as your body allows. Take rest breaks if you feel tired. Do not overexert. Stop activity if you have pain, shortness of breath or feel dizzy. Follow-up appointments: Make an appointment with your primary care physician within one week of discharge. A copy of this summary will be sent to them. Every time you see your primary care physician, or any other doctor, bring your medication list, and a list of questions. CONTACT YOUR PRIMARY CARE PROVIDER if you experience any of the following: Shortness of breath or difficulty breathing Fevers or chills Feeling tired with normal activity or experiencing dizziness or fainting Difficulty following your treatment plan, or difficulty taking medications CALL 911 OR GO TO THE EMERGENCY DEPARTMENT if you experience any of the following: Severe abdominal pain or nausea/vomiting Severe chest pain, or chest pain that radiates (moves) to your jaw or arm Sudden, severe shortness of breath or difficulty breathing Thank you for allowing us to participate in your care. Pending Studies at Discharge: Yes Studies:: b1 level Stand-Alone Forms: [facility] Pel[facility], Smoking Cessation Medications and DC Order Prescriptions: New olanzapine 5 mg Tablet 5 mg PO HS Qty: 30 0RF Continued atorvastatin 40 mg tablet 40 mg PO DAILY omega-3 fatty acids 1,000 mg Capsule 1,000 mg PO BID donepezil 10 mg tablet 10 mg PO HS aspirin 81 mg Tablet,Delayed Release (Dr/Ec) 81 mg PO DAILY ipratropium bromide 21 mcg (0.03 %) spray,non-aerosol 2 spray INTRANASAL Q12 memantine 10 mg tablet 10 mg PO BID solifenacin 5 mg tablet 5 mg PO DAILY Hold Instructions: hold unless your family doctor recommends resuming it Centrum Silver 0.4 mg-300 mcg- 250 mcg Tablet 1 tab PO DAILY Jardiance 10 mg tablet 10 mg PO QAM Hold Instructions: Resume on 11/17/24. Ignore above date. Hold until PCP tells you to resume Mounjaro 5 mg/0.5 mL pen injector 5 mg SUBCUT .Q7DAYS Rx Instructions: Q thur cholecalciferol (vitamin D3) [Vitamin D3] 25 mcg (1,000 unit) Tablet 25 mcg PO DAILY Qty: 1 0RF (DME) OneTouch Verio test strips Strip See Rx Instructions .Route Qty: 100 1RF Rx Instructions: Check blood sugars twice daily. (DME) lancets Misc See Rx Instructions .Route Qty: 100 2RF Rx Instructions: check blood sugars twice daily mirabegron 50 mg tablet extended release 24 hr 50 mg PO DAILY trazodone 50 mg tablet 50 mg PO HS Discontinued gabapentin 100 mg capsule 200 mg PO QAM gabapentin 100 mg capsule 300 mg PO QPM Discharge Orders: Discharge Order (Routine); Ordered 06/27/25 Ordered By: Zita Willard/Other Patient Handouts: Dementia Caregiver Tips, Dementia Caregiver Communication, Dementia Caregivers Plan Future, Delirium and Dementia Admission Data Admit Date/Time: 06/23/25 22:18 Attending Provider: Karine Neville Admit Provider: Ruth Gallego Primary Care Provider: Dean Meier Other Providers: Antonia Goodwin Other Interventions: Discharge Summary Assessment (RN) Last Done: 06/27/25 10:36 Hospital Stay Data Consultations 06/23/25 21:49 ED Decision to Admit Stat Diagnostic Imagining Performed Head CT 06/23/25 17:54 Exam: CT head brain without contrast: Reason for exam: Confusion. Previous studies: 01/02/2025. FINDINGS: There is diffuse atrophy and lucency in the matter. This is essentially stable when compared to the previous study. No acute intracranial mass, hemorrhage or edema is found at this time. No midline shift or extra-axial blood/fluid collection noted. Bony calvarium shows no acute process. IMPRESSION: 1. Negative for acute intracranial process unenhanced head CT study. 2. 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 Electronically signed by Glenroy Wu 06-23-2025 8:07 PM Chest X-Ray 06/23/25 22:00 Exam(s): XR CXR 1 VIEW EXAM: XR Chest, 1 View CLINICAL HISTORY: Reason for exam: confusion. TECHNIQUE: Frontal view of the chest. COMPARISON: Prior chest x-ray from January 02, 2025. FINDINGS: There is an MR-compatible cardiac pacemaker in left chest wall with distal leads in the right atrium right ventricle. Lungs: Unremarkable. No consolidation. Pleural space: Unremarkable. No pneumothorax. Heart: Unremarkable. No cardiomegaly. Mediastinum: Unremarkable. Normal mediastinal contour. Bones/joints: Unremarkable. No acute fracture. IMPRESSION: No evidence of acute cardiopulmonary process. Electronically signed by: Anahi Logan MD 06/24/25 00:13 AM Pending Results Patient Have Any Pending Studies at Discharge: Yes Discharge Instructions Given to Patient (Per Discharging Provider) Ms. Obregon, Carmelo were hospitalized after an episode of confusion resulting in you walking outside early in the morning. This was likely a consequence of your dementia and a change in your routine. There were no signs infection on any of your workup. Medication changes: - stop gabapentin can worsen confusion - added zyprexa at night to help with sleep and behaviors Consider weaning off trazodone - discuss with PCP at follow up appointment Activity: You can do normal everyday activities as your body allows. Take rest breaks if you feel tired. Do not overexert. Stop activity if you have pain, shortness of breath or feel dizzy. Follow-up appointments: Make an appointment with your primary care physician within one week of discharge. A copy of this summary will be sent to them. Every time you see your primary care physician, or any other doctor, bring your medication list, and a list of questions. CONTACT YOUR PRIMARY CARE PROVIDER if you experience any of the following: Shortness of breath or difficulty breathing Fevers or chills Feeling tired with normal activity or experiencing dizziness or fainting Difficulty following your treatment plan, or difficulty taking medications CALL 911 OR GO TO THE EMERGENCY DEPARTMENT if you experience any of the following: Severe abdominal pain or nausea/vomiting Severe chest pain, or chest pain that radiates (moves) to your jaw or arm Sudden, severe shortness of breath or difficulty breathing Thank you for allowing us to participate in your care. Total Time Total Time Spent Total Time Spent (In Minutes): Time spent day of discharge 35 minutes including direct patient care, medication reconciliation, documentation, review of labs and images, and coordination of care. Coding Level of Care Code 63443 INP/OBS DISCH >30 MIN Diagnoses Acute confusion R41.0 Elevated troponin R79.89 DM2 (diabetes mellitus, type 2) E11.9
[2025-06-27 10:37] VITALS: BP 166/88
== END 2025-06-27 12:09 | disposition home or self-care (01) | DRG 57 ==
LOC: ED 17:08 → SUATTDRO 22:18 → 2N 22:18 → INTOOBSV 22:18 → 2N 06-24 02:50